=== PATIENT | female | born 1965 | race African-American/Black ===

== ENCOUNTER → 2017-12-31 | Outpatient (CLI) | payer MEDICAID ==
--- NOTE | 2018-01-02 09:22 | WOMENS IMAGING REPORT ---
EXAM DESCRIPTION: BILAT SCREENING MAMMO W/CAD COMPLETED DATE/TIME: 12/31/2017 9:53 am REASON FOR STUDY: ROUTINE SCREENING; Z12.31 Z12.31 ENCNTR SCREEN MAMMOGRAM FOR MALIGNANT NEOPLASM O F GEORGETTE COMPARISON: 08/21/2016 TECHNIQUE: Standard craniocaudal and mediolateral oblique views of each breast recorded using [employer] acquisition. LIMITATIONS: None. FINDINGS: Findings present which are benign by mammographic criteria. No suspicious masses, calcifi cations or architectural distortion. Pertinent benign findings: Benign right breast calcifications. Read with the assistance of CAD. .[facility] - R2 Cenova Version 1.3 .[facility] - R2 Cenova Version 1.3 .[facility] - R2 Cenova Version 2.4 .[facility] [place] - R2 Cenova Version 2.4 .[facility] - R2 [employer] Version 9.2 Benign mammographic findings may include one or more of the following: Smooth masses, popcorn/rim/co arse calcifications, asymmetries, post-procedure changes, and lesions with long-standing stability. IMPRESSION: BENIGN MAMMOGRAPHIC FINDINGS. BIRADS 2 BREAST DENSITY: b. There are scattered areas of fibroglandular density. BIRAD: 2 BENIGN FINDING(S) RECOMMENDATION: ROUTINE SCREENING Please continue yearly bilateral screening in December 2018. Please consider bilateral screening kelly osynthesis COMMENT: The patient has been notified of the results by letter per MQSA requirements. Additional no tification policies are in place for contacting patient with suspicious or incomplete findings. Quality ID #[id number]: The [employer] recommends an annual screening mammogram for women aged 40 years or over. This facility utilizes a reminder system to ensure that all patients receive reminder letters, and/or direct phone calls for appointments. This includes reminders for routine scr eening mammograms, diagnostic mammograms, or other Breast Imaging Interventions when appropriate. Th is patient will be placed in the appropriate reminder system. The [employer] [employer] (ACR) has developed recommendations for screening MRI of the breast s in certain patient populations, to be used in conjunction with mammography. Breast MRI surveillanc e may be appropriate for women with more than 20% lifetime risk of developing breast cancer as deter mined by genetic testing, significant family history of the disease, or history of mantle radiation f or Hodgkins Disease. ACR Practice Guidelines 2008. TECHNICAL DOCUMENTATION: FINDING NUMBER: (1) ASSESSMENT: (1) JOB ID: [id number] [employer]- All Rights Reserved
== END ==
LOC: WI 09:40
PROVIDERS: ATTEND Physician Assistant
DX: Z12.31 Encounter for screening mammogram for malignant neoplasm of breast (principal)
CPT/HCPCS: 77067

== ENCOUNTER 2018-07-21 08:13 | Day surgery (SDC) | payer MEDICAID ==
[~2018-07-21 08:13] MED LIST: PROPOFOL INJ 200 MG/20 ML VIAL IV ONE
[2018-07-21] MEDS ORDERED: SIMETHICONE 80 MG TAB.CHEW ONE (09:34)
[2018-07-21 09:51] VITALS: BP 129/81
[2018-07-21] MEDS ORDERED: PROPOFOL INJ 200 MG/20 ML VIAL IV ONE (10:41)
--- NOTE | 2018-07-21 13:38 | Operative Report ---
Operative Report DATE OF SURGERY: 07/21/18 Operative Report: The risks, benefits and alternatives of the procedure including the risks of bleeding, perforation requiring surgery are explained to the patient in detail and informed consent is obtained. Patient is taken back to the endoscopy suite and placed in the left, lateral decubital position. Timeout was called. Propofol medication is administered. A rectal examination is done which did not reveal any masses, tears or fissures. An Olympus videoscope was inserted into the patient's rectum. The scope was then carefully advanced all the way to the cecum. The cecum was identified by the usual anatomical landmarks valve as well as the appendiceal office. Photodocumentation is obtained. The scope was then sequentially pulled back via the various segments of the colon including the ascending colon, hepatic flexure, transverse colon, splenic flexure, descending colon and finally to the rectosigmoid portions of the colon. Retroflexion maneuvers performed. PREOPERATIVE DIAGNOSIS: Colorectal cancer screening POSTOPERATIVE DIAGNOSIS: Descending colon polyp was removed via snare polypectomy. Splenic flexure, larger polypoid lesion status post biopsy, status post Kathya ink injection for tattoo. Lesion is too large to be removed via snare polypectomy, will need surgical resection. Diverticulosis. Internal hemorrhoids OPERATION: Colonoscopy with submucosal injection. Colonoscopy with biopsy SURGEON: RANDY CASTRO ANESTHESIA: LMAC TISSUE REMOVED OR ALTERED: As noted above. COMPLICATIONS: None. ESTIMATED BLOOD LOSS: None. INTRAOPERATIVE FINDINGS: As noted above. PROCEDURE: Patient tolerated the procedure well. No immediate postprocedure applications are noted. Patient discharged in good condition. Discharge date 07/21/2018. Discharge diet: Regular. Discharge activity: Regular. 2-3 week follow-up to discuss findings. Patient will need surgical referral. Patient is instructed to call the office or proceed to the emergency room should there be any further problems or questions. Wait on the pathology.
== END 2018-07-21 10:00 | disposition home or self-care (01) ==
LOC: END 08:13
PROVIDERS: ATTEND Internal Medicine Gastroenterology
DX: Z12.11 Encounter for screening for malignant neoplasm of colon (principal); D12.3 Benign neoplasm of transverse colon; D12.6 Benign neoplasm of colon, unspecified; K57.30 Diverticulosis of large intestine without perforation or abscess without bleeding; J45.20 Mild intermittent asthma, uncomplicated; E11.65 Type 2 diabetes mellitus with hyperglycemia; F17.210 Nicotine dependence, cigarettes, uncomplicated; Z79.51 Long term (current) use of inhaled steroids; Z79.4 Long term (current) use of insulin; Z79.84 Long term (current) use of oral hypoglycemic drugs; Z79.899 Other long term (current) drug therapy; Z88.0 Allergy status to penicillin
CPT/HCPCS: 45380; 45381; 82962; 88305 ×2; J2704

== ENCOUNTER 2018-09-02 20:40 | Emergency (ER) | payer MEDICAID ==
[2018-09-02] MEDS ORDERED: NORMAL SALINE 1000 ML 1,000 ML IV ONE (20:48)
[2018-09-02 21:37] LABS: ABSOLUTE EOSINOPHILS # (AUTO) 0.4 10^3/uL (0.0-0.6); ABSOLUTE LYMPHOCYTES (AUTO) 2.6 10^3/uL (0.5-4.7); ABSOLUTE MONOCYTES (AUTO) 0.5 10^3/uL (0.1-1.4); ABSOLUTE NEUT (AUTO) 3.7 10^3/uL (1.7-8.2); BASOPHILS % (AUTO) 0.6 % (0-2); EOSINOPHILS % (AUTO) 5.6 % (0-6); HEMATOCRIT 38.3 % (36.0-47.0); HEMOGLOBIN 12.7 g/dL (12.0-15.5); LYMPHOCYTES % (AUTO) 36.2 % (13-45); MEAN CORPUSCULAR HEMOGLOBIN 25.2 pg (27.0-33.4); MEAN CORPUSCULAR HGB CONC 33.2 g/dL (32.0-36.0); MEAN CORPUSCULAR VOLUME 76 fl (80-97); PLATELET COUNT 282 10^3/uL (150-450); RED BLOOD COUNT 5.04 10^6/uL (3.72-5.28); RED CELL DISTRIBUTION WIDTH 13.7 % (11.5-14.0); SEGMENTED NEUTROPHILS % (AUTO) 50.6 % (42-78); TOTAL CELLS COUNTED % (AUTO) 100 %; WHITE BLOOD COUNT 7.3 10^3/uL (4.0-10.5)
[2018-09-02 21:38] LABS: VENOUS BLOOD BASE EXCESS 2.2 mmol/L; VENOUS BLOOD HCO3 27.9 mmol/L (20-32); VENOUS BLOOD PCO2 48.1 mmHg (35-63); VENOUS BLOOD PH 7.38 (7.30-7.42)
[2018-09-02 21:42] LABS: APPEARANCE,URINE CLEAR; BILIRUBIN,URINE NEGATIVE (NEGATIVE); COLOR,URINE STRAW; GLUCOSE, URINE >=500 mg/dL (NEGATIVE); KETONES,URINE NEGATIVE (NEGATIVE); LEUKOCYTE ESTERASE,URINE NEGATIVE (NEGATIVE); NITRITE,URINE NEGATIVE (NEGATIVE); PROTEIN,URINE NEGATIVE (NEGATIVE); URINE SPECIFIC GRAVITY 1.033
[2018-09-02 21:50] LABS: ALANINE AMINOTRANSFERASE 23 U/L (9-52); ALBUMIN 4.2 g/dL (3.5-5.0); ALKALINE PHOSPHATASE 60 U/L (38-126); ANION GAP 8 (5-19); ASPARTATE AMINO TRANSFERASE 22 U/L (14-36); BILIRUBIN,DIRECT 0.2 mg/dL (0.0-0.4); BILIRUBIN,TOTAL 0.5 mg/dL (0.2-1.3); BLOOD UREA NITROGEN 13 mg/dL (7-20); CALCIUM 9.3 mg/dL (8.4-10.2); CARBON DIOXIDE 31 mmol/L (22-30); CHLORIDE 96 mmol/L (98-107); POTASSIUM 4.1 mmol/L (3.6-5.0); SODIUM 135.2 mmol/L (137-145); TOTAL PROTEIN 7.3 g/dL (6.3-8.2)
[2018-09-02 21:59] LABS: GLUCOSE 442 mg/dL (75-110)
[2018-09-02] MEDS ORDERED: INSULIN REG, HUMAN 100 UNIT/ML 3 ML VIAL (PYX) SUBCUT ONE (22:17)
--- NOTE | 2018-09-02 22:55 | ER Document Report ---
ED General - General Chief Complaint: Headache Stated Complaint: SUGAR LEVELS Time Seen by Provider: 09/02/18 22:04 Notes: Patient is a pleasant 53-year-old female who is a diabetic. She says she is noncompliant with her medications. She says she has medications but just does not take them as she should. She supposed to take metformin thousand milligrams twice a day and also take Lantus. She said she knows that she started feeling dizzy unwell. She said she had a very slight headache. To the headache was not bad. She says she just did not feel well therefore checked her sugar and realized it was over 500. She therefore took her Lantus and came to the ER. No chest pain. No shortness of breath. No recent fevers or infections. TRAVEL OUTSIDE OF THE [place] IN LAST 30 DAYS: No - Related Data Allergies/Adverse Reactions: Penicillins Allergy (Severe, Verified 07/21/18 08:24) Hives Past Medical History - Social History Smoking Status: Former Smoker Chew tobacco use (# tins/day): No Frequency of alcohol use: Occasional Drug Abuse: None Family History: Reviewed & Not Pertinent Patient has suicidal ideation: No Patient has homicidal ideation: No - Past Medical History Cardiac Medical History: Denies: Hx Coronary Artery Disease, Hx Heart Attack, Hx Hypertension Pulmonary Medical History: Reports: Hx Asthma Denies: Hx Bronchitis, Hx COPD, Hx Pneumonia Neurological Medical History: Denies: Hx Cerebrovascular Accident, Hx Seizures Endocrine Medical History: Reports: Hx Diabetes Mellitus Type 2 Renal/ Medical History: Denies: Hx Peritoneal Dialysis Musculoskeletal Medical History: Denies Hx Arthritis Past Surgical History: Reports: Hx Orthopedic Surgery - R shoulder - Immunizations Immunizations up to date: Yes Hx Diphtheria, Pertussis, Tetanus Vaccination: Yes Review of Systems - Review of Systems Notes: My Normal Review Basic REVIEW OF SYSTEMS: CONSTITUTIONAL : Denies fever, chills, or sweats. Denies recent illness. EENT: Denies eye, ear, throat, or mouth pain or symptoms. Denies nasal or sinus congestion. CARDIOVASCULAR: Denies chest pain. RESPIRATORY: Denies cough, cold, or chest congestion. Denies shortness of breath, difficulty breathing, or wheezing. GASTROINTESTINAL: Denies abdominal pain. Denies nausea, vomiting, or diarrhea. GENITOURINARY: Denies difficulty urinating, painful urination, burning, frequency, or blood in urine. MUSCULOSKELETAL: Denies neck or back pain or joint pain or swelling. NEUROLOGICAL: Denies altered mental status or loss of consciousness. Mild headache which is since resolved. Denies weakness or paralysis or loss of use of either side. Denies problems with gait or speech. Denies sensory or motor loss. ALL OTHER SYSTEMS REVIEWED AND NEGATIVE. Physical Exam - Vital signs Vitals: Temp Pulse Resp BP Pulse Ox 98.0 F 89 16 152/81 H 98 09/02/18 20:46 09/02/18 20:46 09/02/18 20:46 09/02/18 20:46 09/02/18 20:46 - Notes Notes: General Appearance: Well nourished, alert, cooperative, no acute distress, no obvious discomfort. Well-appearing. Vitals: reviewed, See vital signs table. Head: no swelling or tenderness to the head Eyes: PERRL, EOMI, Conjuctiva clear Mouth: No decreasd moisture Neck: Supple, no neck tenderness Lungs: No wheezing, No rales, No rhonci, No accessory muscle use, good air exchange bilaterally. Heart: Normal rate, Regular rythm, No murmur, no rub Abdomen: Normal BS, soft, No rigidity, No abdominal tenderness, No guarding, no rebound, no abdominal masses, no organomegaly Extremities: good pulses in all extremities, no swelling or tenderness in the extremities, no edema. Skin: warm, dry, appropriate color, no rash Neuro: speech clear, oriented x 3, normal affect, responds appropriately to questions. Cranial nerves II through XII are intact. Distal sensation intact. Patient moves all extremities without difficulty. Good strength with plantar dorsiflexion against resistance. 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 No focal neurologic deficits on exam. Course - Re-evaluation Re-evalutation: 09/03/18 05:43 Patient symptoms have resolved with improvement of her blood sugar. I informed her that she must take her medications as prescribed. Encourage her to take her medications in the chest check her blood sugar and follow-up with her primary care doctor. If her blood sugar continues to run a bit high despite taking medications appropriately she may need some adjustment of her medications. Encourage patient return to ER immediately if she has recurrence of her symptoms, headache, fevers, vomiting, or feels unwell. Patient agrees with plan and will be discharged home. Dictation of this chart was performed using voice recognition software; therefore, there may be some unintended grammatical errors. - Vital Signs Vital signs: Temp Pulse Resp BP Pulse Ox 97.7 F 81 16 141/74 H 95 09/03/18 00:01 09/03/18 00:01 09/02/18 20:46 09/03/18 00:01 09/03/18 00:01 - Laboratory Result Diagrams: 09/02/18 21:20 09/02/18 21:20 Laboratory results interpreted by me: 09/02/18 09/02/18 09/02/18 21:20 21:20 21:20 MCV 76 L MCH 25.2 L Sodium 135.2 L Chloride 96 L Carbon Dioxide 31 H Glucose 442 H* POC Glucose Urine Glucose (UA) >=500 H Urine Urobilinogen 2.0 H 09/02/18 23:40 MCV MCH Sodium Chloride Carbon Dioxide Glucose POC Glucose 291 H Urine Glucose (UA) Urine Urobilinogen Discharge - Discharge Clinical Impression: Hyperglycemia Condition: Good Disposition: HOME, SELF-CARE Additional Instructions: Please take your medications as prescribed. Please keep a log of your blood sugars and follow up with your doctor on Saturday or Saturday to review your blood sugars to see if you need adjustment of your meds. Referrals: LOGAN RODRIGUEZ, ESTELAC [Primary Care Provider] - 09/05/18
[2018-09-03 00:04] VITALS: BP 141/74
== END 2018-09-03 00:04 | disposition home or self-care (01) ==
LOC: ER 20:40
DX: E11.65 Type 2 diabetes mellitus with hyperglycemia (principal); Z91.14 Patient's other noncompliance with medication regimen; R42 Dizziness and giddiness; R51 Headache; J45.909 Unspecified asthma, uncomplicated; Z88.0 Allergy status to penicillin; Z87.891 Personal history of nicotine dependence
CPT/HCPCS: 99284; 96360; 96361; 36415; 82962; 85025; 80053; 81001; 82803; J1815; J7030

== ENCOUNTER 2018-09-11 08:05 | Outpatient (CLI) | payer MEDICAID ==
--- NOTE | 2018-09-11 08:46 | RADIOLOGY REPORT (SQ) ---
EXAM DESCRIPTION: CHEST PA/LATERAL COMPLETED DATE/TIME: 09/11/2018 8:35 am REASON FOR STUDY: PRE-OP COMPARISON: 10/26/2016 EXAM PARAMETERS: NUMBER OF VIEWS: two views TECHNIQUE: Digital Frontal and Lateral radiographic views of the chest acquired. RADIATION DOSE: NA LIMITATIONS: none FINDINGS: LUNGS AND PLEURA: No opacities, masses or pneumothorax. No pleural effusion. MEDIASTINUM AND HILAR STRUCTURES: No masses or contour abnormalities. HEART AND VASCULAR STRUCTURES: Heart normal size. No evidence for failure. BONES: The osseous structures are stable in appearance. HARDWARE: None in the chest. OTHER: No other significant finding. IMPRESSION: 1. No significant interval changes since the prior examination dated 10/26/2016. No ac [place] findings. TECHNICAL DOCUMENTATION: JOB ID: [id number] [employer]- All Rights Reserved Reading location - IP/workstation name: [email or web address]
[2018-09-11 09:41] LABS: HEMOGLOBIN 12.5 g/dL (12.0-15.5); MEAN CORPUSCULAR HEMOGLOBIN 24.9 pg (27.0-33.4); MEAN CORPUSCULAR VOLUME 76 fl (80-97); PLATELET COUNT 272 10^3/uL (150-450); RED BLOOD COUNT 5.03 10^6/uL (3.72-5.28); RED CELL DISTRIBUTION WIDTH 13.9 % (11.5-14.0); WHITE BLOOD COUNT 6.1 10^3/uL (4.0-10.5)
[2018-09-11 10:00] LABS: ALANINE AMINOTRANSFERASE 29 U/L (9-52); ALBUMIN 4.3 g/dL (3.5-5.0); ALKALINE PHOSPHATASE 57 U/L (38-126); ANION GAP 16 (5-19); ASPARTATE AMINO TRANSFERASE 23 U/L (14-36); BILIRUBIN,DIRECT 0.1 mg/dL (0.0-0.4); BILIRUBIN,TOTAL 0.5 mg/dL (0.2-1.3); BLOOD UREA NITROGEN 10 mg/dL (7-20); CALCIUM 9.8 mg/dL (8.4-10.2); CARBON DIOXIDE 28 mmol/L (22-30); CHLORIDE 99 mmol/L (98-107); GLUCOSE 246 mg/dL (75-110); POTASSIUM 4.2 mmol/L (3.6-5.0); SODIUM 142.5 mmol/L (137-145); TOTAL PROTEIN 7.5 g/dL (6.3-8.2)
[2018-09-11 10:27] LABS: CARCINOEMBRYONIC ANTIGEN 1.5 ng/mL (<3.0)
--- NOTE | 2018-09-11 12:28 | EKG REPORT ---
SEVERITY:- ABNORMAL ECG - SINUS RHYTHM CONSIDER LEFT VENTRICULAR HYPERTROPHY : Confirmed by: Lorena Meeks MD 11-Sep-2018 12:27:50
[2018-09-19] MEDS ORDERED: METRONIDAZOLE 500 MG/NS RTU 500 MG/100 ML RTUPB IV PRN (05:00)
[2018-09-19] MEDS ORDERED: LIDOCAINE 0.5% INJ-PF (5 MG/ML) 50 ML SDV SUBCUT PRN (05:00)
[2018-09-19] MEDS ORDERED: CIPROFLOXACIN 400 MG/D5W RTU 400 MG/200 ML RTUPB IV PRN (05:00)
[2018-09-19] MEDS ORDERED: LACTATED RINGERS 1000 ML IV PRN (05:00)
[2018-09-19] MEDS ORDERED: CIPROFLOXACIN 400 MG/D5W RTU 400 MG/200 ML RTUPB IV ONE (05:22)
[2018-09-19] MEDS ORDERED: METRONIDAZOLE 500 MG/NS RTU 0 MG/0 ML RTUPB IV ONE (05:22)
[2018-09-19] MEDS ORDERED: ALBUTEROL SULFATE 0.083% NEB 2.5 MG/3 ML AMPUL NEB ONE (05:57)
[2018-09-19 06:00] VITALS: BP 149/88
[2018-09-19] MEDS ORDERED: MIDAZOLAM 2 MG/2 ML INJ ONE (06:13)
[2018-09-19] MEDS ORDERED: DEXAMETHASONE SOD PHOSPHATE INJ 4 MG/1 ML VIAL ONE (06:13)
[2018-09-19] MEDS ORDERED: LIDOCAINE 2% INJ-PF (20 MG/ML) 10 ML AMPUL ONE (06:13)
[2018-09-19] MEDS ORDERED: ONDANSETRON HCL INJ/PF 4 MG/2 ML SDV ONE (06:13)
[2018-09-19] MEDS ORDERED: FENTANYL CITRATE INJ/PF 250 MCG/5 ML AMPULE ONE (06:13)
[2018-09-19] MEDS ORDERED: ACETAMINOPHEN 0 MG/0 ML RTUPB IV ONE (06:14)
[2018-09-19] MEDS ORDERED: PROPOFOL INJ 200 MG/20 ML VIAL IV ONE (06:14)
[2018-09-19] MEDS ORDERED: SUGAMMADEX SODIUM 200 MG/2 ML SDV IV ONE (06:14)
[2018-09-19] MEDS ORDERED: BUPIVACAINE HCL 0.5 % INJ/PF 30 ML SDV ONE (06:52)
== END 2018-09-11 12:00 | disposition home or self-care (01) ==
LOC: OD 08:05 → UNDOADMIN 09-19 05:17 → INOR 09-19 05:17 → UNDODISIN 09-19 06:10 → EDSTATUS 09-19 07:30
PROVIDERS: ATTEND Surgery
DX: Z01.818 Encounter for other preprocedural examination (principal); K63.5 Polyp of colon; E11.9 Type 2 diabetes mellitus without complications; J45.909 Unspecified asthma, uncomplicated
CPT/HCPCS: 36415; 71046; 80053; 82378; 82962; 83036; 85027; 93005; 93010; 94640; J0131; J0744; J1100; J2250; J2405; J2704; J3010; J3490

== ENCOUNTER 2018-10-06 08:30 | Emergency (ER) | payer MEDICAID ==
[2018-10-06 08:36] VITALS: BP 140/76
[2018-10-06] MEDS ORDERED: FAMOTIDINE 20 MG TABLET PO ONE (09:34)
[2018-10-06] MEDS ORDERED: LORATADINE 10 MG TABLET PO ONE (09:34)
--- NOTE | 2018-10-06 09:40 | ER Document Report ---
ED Skin Rash/Insect Bite/Abscs - General Chief Complaint: Itching Stated Complaint: POSSIBLE SKIN ISSUE Time Seen by Provider: 10/06/18 09:04 Mode of Arrival: Ambulatory Information source: Patient Notes: 53-year-old female presents to ED for complaint of itching all over her body since Saturday. She states she has changed her laundry detergent but nothing else. She states she does not have any rash she does not have any shortness of breath difficulty breathing or difficulty swallowing. She does have itching all over her body. TRAVEL OUTSIDE OF THE [place] IN LAST 30 DAYS: No - HPI Patient complains to provider of: Other - Pain itching to her total body no rash noted Onset: Other - 3 days Onset/Duration: Persistent Quality of pain: No pain Severity: None Pain Level: Denies Skin Character: Other - No rash Quality of rash: Itchy Identify cause: No - States she changed her detergent but nothing else Exacerbated by: Other Relieved by: Denies - Showers Similar symptoms previously: No Recently seen / treated by doctor: No - Related Data Allergies/Adverse Reactions: Penicillins Allergy (Severe, Verified 10/06/18 08:32) Hives Past Medical History - General Information source: Patient - Social History Smoking Status: Current Every Day Smoker Cigarette use (# per day): Yes - 1-2 cigarettes a day Chew tobacco use (# tins/day): No Smoking Education Provided: Yes - 4 minutes Frequency of alcohol use: Occasional Drug Abuse: None Lives with: Family Family History: Reviewed & Not Pertinent Patient has suicidal ideation: No Patient has homicidal ideation: No - Past Medical History Cardiac Medical History: Denies: Hx Hypertension - DURING Pulmonary Medical History: Reports: Hx Asthma, Hx Pneumonia - YRS AGO EENT Medical History: Reports: None Neurological Medical History: Reports: None Endocrine Medical History: Reports: Hx Diabetes Mellitus Type 2 Renal/ Medical History: Reports: Hx Kidney Stones - H/O Malignancy Medical History: Reports: Hx Cervical Cancer GI Medical History: Reports: None Musculoskeletal Medical History: Reports None Skin Medical History: Reports None Psychiatric Medical History: Reports: Hx Depression Traumatic Medical History: Reports: None Infectious Medical History: Reports: None Past Surgical History: Reports: Hx Orthopedic Surgery - R shoulder - Immunizations Immunizations up to date: Yes Hx Diphtheria, Pertussis, Tetanus Vaccination: Yes Review of Systems - Review of Systems Notes: REVIEW OF SYSTEMS: CONSTITUTIONAL : Denies fever, chills, or sweats. Denies recent illness. EENT: Denies eye, ear, throat, or mouth pain or symptoms. Denies nasal or sinus congestion or discharge. Denies throat, tongue, or mouth swelling or difficulty swallowing. CARDIOVASCULAR: Denies chest pain. Denies palpitations or racing or irregular heart beat. Denies ankle edema. RESPIRATORY: Denies cough, cold, or chest congestion. Denies shortness of breath, difficulty breathing, or wheezing. GASTROINTESTINAL: Denies abdominal pain or distention. Denies nausea, vomiting , or diarrhea. Denies blood in vomitus, stools, or per rectum. Denies black, tarry stools. Denies constipation. GENITOURINARY: Denies difficulty urinating, painful urination, burning, frequency, blood in urine, or discharge. FEMALE GENITOURINARY: Denies vaginal bleeding, heavy or abnormal periods, irregular periods. Denies vaginal discharge or odor. MUSCULOSKELETAL: Denies back or neck pain or stiffness. Denies joint pain or swelling. SKIN: Patient denies any rashes but she states she has severe urticaria over her entire body to include her head. There are no hives just severe itching for the last several days since she changed her laundry soap. She states her knees came over to see her and set on her scalp and was scratching and then she has itched ever since then. HEMATOLOGIC : Denies easy bruising or bleeding. LYMPHATIC: Denies swollen, enlarged glands. NEUROLOGICAL: Denies confusion or altered mental status. Denies passing out or loss of consciousness. Denies dizziness or lightheadedness. Denies headache. Denies weakness or paralysis or loss of use of either side. Denies problems with gait or speech. Denies sensory loss, numbness, or tingling. Denies seizures. PHYSICAL EXAMINATION: GENERAL: Well-appearing, well-nourished and in no acute distress. HEAD: Atraumatic, normocephalic. EYES: Pupils equal round and reactive to light, extraocular movements intact, conjunctiva are normal. ENT: Nares patent, oropharynx clear without exudates. Moist mucous membranes. NECK: Normal range of motion, supple without lymphadenopathy LUNGS: Breath sounds clear to auscultation bilaterally and equal. No wheezes rales or rhonchi. HEART: Regular rate and rhythm without murmurs ABDOMEN: Soft, nontender, nondistended abdomen. No guarding, no rebound. No masses appreciated. Female : deferred Musculoskeletal: Normal range of motion, no pitting or edema. No cyanosis. NEUROLOGICAL: Cranial nerves grossly intact. Normal speech, normal gait. Normal sensory, motor exams PSYCH: Normal mood, normal affect. SKIN: Warm, Dry, normal turgor, no rashes or lesions noted. No rash just extreme itching PSYCHIATRIC: Denies anxiety or stress. Denies depression, suicidal ideation, or homicidal ideation. ALL OTHER SYSTEMS REVIEWED AND NEGATIVE. Dictation was performed using [employer] voice recognition software Physical Exam - Vital signs Vitals: Temp Pulse Resp BP Pulse Ox 98.0 F 100 20 140/76 H 96 10/06/18 08:35 10/06/18 08:35 10/06/18 08:35 10/06/18 08:35 10/06/18 08:35 Course - Vital Signs Vital signs: Temp Pulse Resp BP Pulse Ox 98.0 F 100 20 140/76 H 96 10/06/18 08:35 10/06/18 08:35 10/06/18 08:35 10/06/18 08:35 10/06/18 08:35 Discharge - Discharge Clinical Impression: Urticaria Condition: Stable Disposition: HOME, SELF-CARE Additional Instructions: You were seen today for itching all over your body since Saturday. You did not have any rash at this time. You state you have changed her laundry detergent recently please change it back as this can often cause skin irritation. Use Benadryl [id number], Benadryl cream, calamine lotion, or Caladryl lotion for the itching. Eucerin cream can also help with itching. Use cool or tepid bath hot water will actually make you itch more The more you scratch the more you will TH please try not to scratch ACID-SUPPRESSING MEDICATION: You have a prescription for medicine which reduces the stomach's secretion of acid. Examples include Zantac, Tagament, and Pepcid. These drugs are often used to allow healing of ulcers or esophagitis. They may be needed to prevent recurrence of ulcers in some patients, or to prevent damage from acid reflux in the esophagus. Take all medication as prescribed, even after the pain is gone. Regular antacids may be added as needed if you have symptoms while taking this medicine. These medications sometimes are prescribed for allergic reactions because they have anti-histaminic effects and relieve the rash and itching of the reaction. There are usually no side effects from this medication. But, in rare cases and particularly in the elderly, serious problems can occur. Contact your doctor if there is fever, rash, hallucinations, confusion, or unusual bruising. Contact your doctor at once if you develop lightheadedness, black or bloody stool, or bloody vomitus. ANTIHISTAMINES: An antihistamine has been given and/or prescribed to control your symptoms. Antihistamines are used for many reasons, including itching, watering eyes, runny nose, allergic swelling, hives, and insect stings. Antihistamines may cause drowsiness, especially with the first dose. Do not operate machinery or drive while under the effects of the medication. Other common side effects include dry mouth and eyes. In older persons, antihistamines can occasionally cause urinary retention, constipation, and trouble focusing the eyes. Do not combine the medication with alcohol, or with any other medication without talking to your doctor. USE OF DIPHENHYDRAMINE: The use of diphenhydramine (Benadryl) has been recommended to control allergic symptoms. The 25 mg strength is available over- the-counter, as well as the elixir. This antihistamine is used for many symptoms. It's useful for itching, watering eyes and nose, allergic swelling, hives, and insect stings. The medication can be repeated four times daily. Age Elixir (12.5 mg/tsp) 25 mg pill 2-3 yr 1/2 tsp 4-8 yr 1 tsp 9-14 yr 2 tsp one tab adult 1-2 tabs Antihistamines may cause drowsiness, especially with the first dose. Do not operate machinery or drive while under the effects of the medication. Do not combine the medication with alcohol, or with any other medication without talking to your doctor. FOLLOW-UP CARE: If you have been referred to a physician for follow-up care, call the physician s office for an appointment as you were instructed or within the next two days. If you experience worsening or a significant change in your symptoms, notify the physician immediately or return to the Emergency Department at any time for re-evaluation. Prescriptions: Diphenhydramine HCl [Benadryl 50 mg Capsule] 50 mg PO Q6 PRN #20 capsule PRN Reason: Itching Famotidine [Pepcid 20 mg Tablet] 20 mg PO BID #12 tablet Forms: Smoking Cessation Education Referrals: LOGAN RODRIGUEZ FNP-C [Primary Care Provider] - Follow up as needed
== END 2018-10-06 09:41 | disposition home or self-care (01) ==
LOC: ER 08:30
DX: L50.9 Urticaria, unspecified (principal); E11.9 Type 2 diabetes mellitus without complications; J45.909 Unspecified asthma, uncomplicated; F17.210 Nicotine dependence, cigarettes, uncomplicated; Z71.6 Tobacco abuse counseling; Z88.0 Allergy status to penicillin; Z85.41 Personal history of malignant neoplasm of cervix uteri
CPT/HCPCS: 99406; 99283; J3490 ×2

== ENCOUNTER 2018-11-14 10:31 | Emergency (ER) | payer MEDICAID ==
[2018-11-14] MEDS ORDERED: LIDOCAINE 5% (700 MG) TRANSDERMAL ADH..PATCH TP ONE (10:55)
[2018-11-14] MEDS ORDERED: ASPIRIN 81 MG TABLET, CHEWABLE PO ONE (10:55)
[2018-11-14] MEDS ORDERED: ACETAMINOPHEN 325 MG TABLET PO ONE (10:56)
--- NOTE | 2018-11-14 10:57 | ER Document Report ---
ED Medical Screen (RME) - General Chief Complaint: Chest Pain > 30 Stated Complaint: CHEST PINCHING Time Seen by Provider: 11/14/18 10:48 TRAVEL OUTSIDE OF THE [place] IN LAST 30 DAYS: No - Related Data Allergies/Adverse Reactions: Penicillins Allergy (Severe, Verified 11/14/18 10:32) Hives Past Medical History - Social History Chew tobacco use (# tins/day): No Frequency of alcohol use: None Drug Abuse: None - Past Medical History Cardiac Medical History: Denies: Hx Pulmonary Embolism Comment Only: Hx Hypertension - DURING Pulmonary Medical History: Reports: Hx Asthma, Hx Pneumonia - YRS AGO Denies: Hx Bronchitis, Hx COPD, Hx Respiratory Failure, Hx Sleep Apnea, Hx Tuberculosis Neurological Medical History: Denies: Hx Cerebrovascular Accident, Hx Seizures Endocrine Medical History: Reports: Hx Diabetes Mellitus Type 2. Denies: Hx Graves' Disease, Hx Hyperthyroidism, Hx Hypothyroidism Renal/ Medical History: Reports: Hx Kidney Stones - H/O. Denies: Hx End Stage Renal Disease, Hx Ovarian Cysts, Hx Peritoneal Dialysis, Hx Pelvic Inflammatory Disease Malignancy Medical History: Reports: Hx Cervical Cancer. Denies: Hx Breast Cancer, Hx Leukemia, Hx Lung Cancer, Hx Ovarian Cancer GI Medical History: Denies: Hx Crohn's Disease, Hx Gastroesophageal Reflux Disease, Hx Hiatal Hernia, Hx Irritable Bowel, Hx Liver Failure, Hx Pancreatitis, Hx Ulcer Musculoskeltal Medical History: Denies Hx Arthritis, Denies Hx Fibromyalgia, Denies Hx Multiple Sclerosis, Denies Hx Muscular Dystrophy Psychiatric Medical History: Reports: Hx Depression Denies: Hx Bipolar Disorder, Hx Dementia, Hx Post Traumatic Stress Disorder, Hx Schizophrenia Traumatic Medical History: Denies: Hx Fractures Infectious Medical History: Denies: Hx HIV Past Surgical History: Reports: Hx Orthopedic Surgery - R shoulder. Denies: Hx Appendectomy, Hx Bowel Surgery, Hx Section, Hx Cholecystectomy, Hx Colostomy, Hx Coronary Artery Bypass Graft, Hx Gastric Bypass Surgery, Hx Herniorrhaphy, Hx Hysterectomy, Hx Mastectomy, Hx Pacemaker, Hx Tonsillectomy, Hx Tubal Ligation - Immunizations Immunizations up to date: Yes Hx Diphtheria, Pertussis, Tetanus Vaccination: Yes History of Influenza Vaccine for 08/2017 - 01/2018 Season: No Physical Exam - Vital signs Vitals: Temp Pulse Resp BP Pulse Ox 97.5 F 85 15 157/82 H 97 11/14/18 10:43 11/14/18 10:43 11/14/18 10:43 11/14/18 10:43 11/14/18 10:43 Course - Re-evaluation Re-evalutation: 53-year-old female who is a cigarette smoker presents for evaluation of left- sided chest pain with associated gurgling. It is reproducible to palpation. Exacerbated by movement of her left arm. I have seen and evaluated this patient, they have undergone a rapid medical screening examination, they will require reevaluation further examination potential further diagnostics and disposition determination by secondary provider. - Vital Signs Vital signs: Temp Pulse Resp BP Pulse Ox 97.5 F 85 15 157/82 H 97 11/14/18 10:43 11/14/18 10:43 11/14/18 10:43 11/14/18 10:43 11/14/18 10:43 Doctor's Discharge - Discharge Referrals: LOGAN RODRIGUEZ, [employer] [Primary Care Provider] - Follow up as needed
[2018-11-14 11:27] LABS: ABSOLUTE EOSINOPHILS # (AUTO) 0.3 10^3/uL (0.0-0.6); ABSOLUTE LYMPHOCYTES (AUTO) 2.1 10^3/uL (0.5-4.7); ABSOLUTE MONOCYTES (AUTO) 0.6 10^3/uL (0.1-1.4); ABSOLUTE NEUT (AUTO) 4.5 10^3/uL (1.7-8.2); BASOPHILS % (AUTO) 0.5 % (0-2); EOSINOPHILS % (AUTO) 3.7 % (0-6); HEMATOCRIT 36.8 % (36.0-47.0); HEMOGLOBIN 12.1 g/dL (12.0-15.5); LYMPHOCYTES % (AUTO) 27.7 % (13-45); MEAN CORPUSCULAR HGB CONC 32.8 g/dL (32.0-36.0); MEAN CORPUSCULAR VOLUME 76 fl (80-97); MONOCYTES % (AUTO) 7.9 % (3-13); PLATELET COUNT 279 10^3/uL (150-450); RED BLOOD COUNT 4.84 10^6/uL (3.72-5.28); RED CELL DISTRIBUTION WIDTH 14.7 % (11.5-14.0); SEGMENTED NEUTROPHILS % (AUTO) 60.2 % (42-78); TOTAL CELLS COUNTED % (AUTO) 100 %; WHITE BLOOD COUNT 7.5 10^3/uL (4.0-10.5)
--- NOTE | 2018-11-14 11:29 | RADIOLOGY REPORT (SQ) ---
EXAM DESCRIPTION: CHEST SINGLE VIEW COMPLETED DATE/TIME: 11/14/2018 11:22 am REASON FOR STUDY: chest pain COMPARISON: 09/11/2018 EXAM PARAMETERS: NUMBER OF VIEWS: One view. TECHNIQUE: Single frontal radiographic view of the chest acquired. RADIATION DOSE: NA LIMITATIONS: None. FINDINGS: LUNGS AND PLEURA: No opacities, masses or pneumothorax. No pleural effusion. MEDIASTINUM AND HILAR STRUCTURES: No masses. Contour normal. HEART AND VASCULAR STRUCTURES: Heart normal in size. Normal vasculature. BONES: No acute findings. HARDWARE: None in the chest. OTHER: No other significant finding. IMPRESSION: NO ACUTE RADIOGRAPHIC FINDING IN THE CHEST. TECHNICAL DOCUMENTATION: JOB ID: [id number] [employer]- All Rights Reserved Reading location - IP/workstation name: [email or web address]
[2018-11-14 11:48] LABS: ALANINE AMINOTRANSFERASE 22 U/L (9-52); ALBUMIN 4.6 g/dL (3.5-5.0); ALKALINE PHOSPHATASE 54 U/L (38-126); ANION GAP 10 (5-19); ASPARTATE AMINO TRANSFERASE 20 U/L (14-36); BILIRUBIN,DIRECT 0.2 mg/dL (0.0-0.4); BILIRUBIN,TOTAL 0.6 mg/dL (0.2-1.3); BLOOD UREA NITROGEN 14 mg/dL (7-20); CALCIUM 9.9 mg/dL (8.4-10.2); CARBON DIOXIDE 28 mmol/L (22-30); CHLORIDE 103 mmol/L (98-107); CREATINE KINASE 167 U/L (30-135); GLUCOSE 157 mg/dL (75-110); POTASSIUM 4.3 mmol/L (3.6-5.0); SODIUM 140.5 mmol/L (137-145); TOTAL PROTEIN 7.9 g/dL (6.3-8.2)
[2018-11-14 11:59] LABS: CREATINE KINASE MB 1.11 ng/mL (<4.55)
[2018-11-14 12:06] LABS: TROPONIN I < 0.012 ng/mL
--- NOTE | 2018-11-14 14:42 | ER Document Report ---
ED General - General Chief Complaint: Chest Pain > 30 Stated Complaint: CHEST PINCHING Time Seen by Provider: 11/14/18 10:48 TRAVEL OUTSIDE OF THE [place] IN LAST 30 DAYS: No - HPI Notes: left sided chest pain since 8am this morning upon my evaluation status of the chest pain had resolvedWhich one there are no other was patient stating pain exacerbated with motion. Denies any recent travel denies any fever chills nausea vomiting diarrhea. - Related Data Allergies/Adverse Reactions: Penicillins Allergy (Severe, Verified 11/14/18 10:32) Hives Past Medical History - Social History Smoking Status: Current Every Day Smoker Chew tobacco use (# tins/day): No Frequency of alcohol use: None Drug Abuse: None Family History: Reviewed & Not Pertinent Patient has suicidal ideation: No Patient has homicidal ideation: No - Past Medical History Cardiac Medical History: Denies: Hx Pulmonary Embolism Comment Only: Hx Hypertension - DURING Pulmonary Medical History: Reports: Hx Asthma, Hx Pneumonia - YRS AGO Denies: Hx Bronchitis, Hx COPD, Hx Respiratory Failure, Hx Sleep Apnea, Hx Tuberculosis Neurological Medical History: Denies: Hx Cerebrovascular Accident, Hx Seizures Endocrine Medical History: Reports: Hx Diabetes Mellitus Type 2. Denies: Hx Graves' Disease, Hx Hyperthyroidism, Hx Hypothyroidism Renal/ Medical History: Reports: Hx Kidney Stones - H/O. Denies: Hx End Stage Renal Disease, Hx Ovarian Cysts, Hx Peritoneal Dialysis, Hx Pelvic Inflammatory Disease Malignancy Medical History: Reports: Hx Cervical Cancer. Denies: Hx Breast Cancer, Hx Leukemia, Hx Lung Cancer, Hx Ovarian Cancer GI Medical History: Denies: Hx Crohn's Disease, Hx Gastroesophageal Reflux Disease, Hx Hiatal Hernia, Hx Irritable Bowel, Hx Liver Failure, Hx Pancreatitis, Hx Ulcer Musculoskeletal Medical History: Denies Hx Arthritis, Denies Hx Fibromyalgia, Denies Hx Multiple Sclerosis, Denies Hx Muscular Dystrophy Psychiatric Medical History: Reports: Hx Depression Denies: Hx Bipolar Disorder, Hx Dementia, Hx Post Traumatic Stress Disorder, Hx Schizophrenia Traumatic Medical History: Denies: Hx Fractures Infectious Medical History: Denies: Hx HIV Past Surgical History: Reports: Hx Orthopedic Surgery - R shoulder. Denies: Hx Appendectomy, Hx Bowel Surgery, Hx Section, Hx Cholecystectomy, Hx Colostomy, Hx Coronary Artery Bypass Graft, Hx Gastric Bypass Surgery, Hx Herniorrhaphy, Hx Hysterectomy, Hx Mastectomy, Hx Pacemaker, Hx Tonsillectomy, Hx Tubal Ligation - Immunizations Immunizations up to date: Yes Hx Diphtheria, Pertussis, Tetanus Vaccination: Yes Review of Systems - Review of Systems Constitutional: No symptoms reported EENT: No symptoms reported Cardiovascular: Chest pain Respiratory: No symptoms reported Gastrointestinal: No symptoms reported Genitourinary: No symptoms reported Female Genitourinary: No symptoms reported Musculoskeletal: No symptoms reported Skin: No symptoms reported Hematologic/Lymphatic: No symptoms reported Neurological/Psychological: No symptoms reported Physical Exam - Vital signs Vitals: Temp Pulse Resp BP Pulse Ox 97.5 F 85 15 157/82 H 97 11/14/18 10:43 11/14/18 10:43 11/14/18 10:43 11/14/18 10:43 11/14/18 10:43 Interpretation: Normal - General General appearance: Appears well, Alert - HEENT Head: Normocephalic, Atraumatic Eyes: Normal Pupils: PERRL - Respiratory Respiratory status: No respiratory distress Chest status: Nontender Breath sounds: Normal Chest palpation: Normal - Cardiovascular Rhythm: Regular Heart sounds: Normal auscultation Murmur: No - Abdominal Inspection: Normal Distension: No distension Bowel sounds: Normal Tenderness: Nontender Organomegaly: No organomegaly - Back Back: Normal, Nontender - Extremities General upper extremity: Normal inspection, Nontender, Normal color, Normal ROM, Normal temperature General lower extremity: Normal inspection, Nontender, Normal color, Normal ROM, Normal temperature, Normal weight bearing. No: Reilly's sign - Neurological Neuro grossly intact: Yes Cognition: Normal Orientation: AAOx4 Rosales Coma Scale Eye Opening: Spontaneous Rosales Coma Scale Verbal: Oriented Rosales Coma Scale Motor: Obeys Commands [place] Coma Scale Total: 15 Speech: Normal Motor strength normal: LUE, RUE, LLE, RLE Sensory: Normal - Psychological Associated symptoms: Normal affect, Normal mood - Skin Skin Temperature: Warm Skin Moisture: Dry Skin Color: Normal Course - Re-evaluation Re-evalutation: 11/22/18 07:58 The patient has atypical chest pain as the patient's chest pain is not suggestive of pulmonary embolus, cardiac ischemia, aortic dissection, or other serious etiology. Given the extremely low risk of these diagnoses further testing and evaluation for these possibilities does not appear to be indicated at this time. The patient has been instructed to return if the symptoms worsen or change in any way. - Vital Signs Vital signs: Temp Pulse Resp BP Pulse Ox 97.5 F 71 18 142/89 H 98 11/14/18 10:43 11/14/18 14:49 11/14/18 14:49 11/14/18 14:49 11/14/18 14:49 - Laboratory Result Diagrams: 11/14/18 11:05 11/14/18 11:05 Laboratory results interpreted by me: 11/14/18 11/14/18 11:05 11:05 MCV 76 L MCH 25.0 L RDW 14.7 H Glucose 157 H Creatine Kinase 167 H Discharge - Discharge Clinical Impression: Chest pain Condition: Good Disposition: HOME, SELF-CARE Instructions: Chest Wall Pain ([facility]), Chest Pain of Unclear Cause ([facility]) Additional Instructions: Follow-up with your primary care physician your chest x-ray EKG laboratory s tudies today do not show any critical pathology. I would recommend taking Tylenol Motrin for your pain control return to ER if your symptoms change. Referrals: LOGAN RODRIGUEZ, [employer] [COMMUNITY BASED STAFF] - Follow up as needed
[2018-11-14 14:50] VITALS: BP 142/89
--- NOTE | 2018-11-14 23:01 | EKG REPORT ---
SEVERITY:- ABNORMAL ECG - SINUS RHYTHM CONSIDER LEFT VENTRICULAR HYPERTROPHY : Confirmed by: Lorena Meeks MD 14-Nov-2018 23:00:37
== END 2018-11-14 14:50 | disposition home or self-care (01) ==
LOC: ER 10:31
DX: R07.89 Other chest pain (principal); F17.200 Nicotine dependence, unspecified, uncomplicated; J45.909 Unspecified asthma, uncomplicated; E11.9 Type 2 diabetes mellitus without complications; Z85.41 Personal history of malignant neoplasm of cervix uteri; Z88.0 Allergy status to penicillin
CPT/HCPCS: 93005; 99284; 36415; 82553; 82550; 85025; 80053; 84484; 71045; 93010; J3490 ×2

== ENCOUNTER 2019-02-03 08:02 | Inpatient (IN) | payer MEDICAID ==
[2019-01-28 10:09] LABS: HEMATOCRIT 38.2 % (36.0-47.0); HEMOGLOBIN 12.7 g/dL (12.0-15.5); MEAN CORPUSCULAR HEMOGLOBIN 25.1 pg (27.0-33.4); MEAN CORPUSCULAR HGB CONC 33.1 g/dL (32.0-36.0); MEAN CORPUSCULAR VOLUME 76 fl (80-97); PLATELET COUNT 273 10^3/uL (150-450); RED BLOOD COUNT 5.03 10^6/uL (3.72-5.28); RED CELL DISTRIBUTION WIDTH 14.6 % (11.5-14.0); WHITE BLOOD COUNT 5.9 10^3/uL (4.0-10.5)
[2019-01-28 10:24] LABS: ANION GAP 10 (5-19); BLOOD UREA NITROGEN 10 mg/dL (7-20); CALCIUM 10.2 mg/dL (8.4-10.2); CARBON DIOXIDE 30 mmol/L (22-30); CHLORIDE 101 mmol/L (98-107); GLUCOSE 208 mg/dL (75-110); POTASSIUM 4.1 mmol/L (3.6-5.0); SODIUM 140.8 mmol/L (137-145)
--- NOTE | 2019-01-28 11:05 | RADIOLOGY REPORT (SQ) ---
EXAM DESCRIPTION: CHEST PA/LATERAL COMPLETED DATE/TIME: 01/28/2019 10:36 am REASON FOR STUDY: COUGH,PRE-OP COMPARISON: 11/14/2018 EXAM PARAMETERS: NUMBER OF VIEWS: two views TECHNIQUE: Digital Frontal and Lateral radiographic views of the chest acquired. RADIATION DOSE: NA LIMITATIONS: none FINDINGS: LUNGS AND PLEURA: No opacities, masses or pneumothorax. No pleural effusion. Unchanged hy perinflation at the left lung apex. MEDIASTINUM AND HILAR STRUCTURES: No masses or contour abnormalities. HEART AND VASCULAR STRUCTURES: Heart normal size. No evidence for failure. BONES: Unchanged dysmorphic right apical hemithorax with evidence of fused upper ribs an elevated rig ht scapula. Upper thoracic vertebral body anomalies, stable. HARDWARE: None in the chest. OTHER: No other significant finding. IMPRESSION: No evidence of acute cardiopulmonary process. 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 TECHNICAL DOCUMENTATION: JOB ID: [id number] [employer]- All Rights Reserved Reading location - IP/workstation name: [email or web address]
--- NOTE | 2019-01-28 23:30 | EKG REPORT ---
SEVERITY:- NORMAL ECG - SINUS RHYTHM : Confirmed by: Miguel A Donis 28-Jan-2019 23:30:22
[~2019-02-03 08:02] MED LIST changes: +IBUPROFEN 800 MG in NORMAL SALINE 250 ML IV PRN; +LACTATED RINGERS 1000 ML IV PRN; +LEVOFLOXACIN 500 MG/D5W RTU 500 MG/100 ML RTUPB IV PRN; +LIDOCAINE 0.5% INJ-PF (5 MG/ML) 50 ML SDV SUBCUT PRN; +METRONIDAZOLE 500 MG/NS RTU 500 MG/100 ML RTUPB IV PRN; -PROPOFOL INJ 200 MG/20 ML VIAL IV ONE
[2019-02-03] MEDS ORDERED: ALBUTEROL SULFATE 0.083% NEB 2.5 MG/3 ML AMPUL NEB ONE (09:31)
[2019-02-03] MEDS ORDERED: FAMOTIDINE INJ/PF 20 MG/2 ML SDV IV ONE (09:32)
[2019-02-03] MEDS ORDERED: METRONIDAZOLE 500 MG/NS RTU 500 MG/100 ML RTUPB IV ONE (09:33)
[2019-02-03] MEDS ORDERED: LEVOFLOXACIN 500 MG/D5W RTU 500 MG/100 ML RTUPB IV ONE (09:34)
[2019-02-03] MEDS ORDERED: BUPIVACAINE HCL 0.25 % INJ/PF (2.5 MG/1 ML) 30 ML VIAL ONE (09:40)
[2019-02-03] MEDS ORDERED: METOCLOPRAMIDE HCL INJ/PF 10 MG/2 ML SDV ONE (09:54)
[2019-02-03] MEDS ORDERED: RINGERS SOLUTION,LACTATED 1,000 ML IV ONE (10:30)
[2019-02-03] MEDS ORDERED: MIDAZOLAM 2 MG/2 ML INJ ONE (10:32)
[2019-02-03] MEDS ORDERED: HYDROMORPHONE HCL INJ/PF 2 MG/ML AMPULE ONE ×2 (10:32→16:06)
[2019-02-03] MEDS ORDERED: FENTANYL CITRATE INJ/PF 100 MCG/2 ML AMPUL ONE ×2 (10:32→15:30)
[2019-02-03] MEDS ORDERED: DEXAMETHASONE SOD PHOSPHATE INJ 4 MG/1 ML VIAL ONE (10:32)
[2019-02-03] MEDS ORDERED: ONDANSETRON HCL INJ/PF 4 MG/2 ML SDV ONE (10:32)
[2019-02-03] MEDS ORDERED: PROPOFOL INJ 200 MG/20 ML VIAL IV ONE (10:33)
[2019-02-03] MEDS ORDERED: ACETAMINOPHEN 1,000 MG/100 ML RTUPB IV ONE (10:33)
[2019-02-03] MEDS ORDERED: NEOSTIGMINE METHYLSULFATE 10 MG/10 ML VIAL ONE (12:00)
[2019-02-03] MEDS ORDERED: SUCCINYLCHOLINE CHLORIDE INJ 200 MG/10 ML VIAL ONE (12:00)
[2019-02-03] MEDS ORDERED: GLYCOPYRROLATE 1 MG/5 ML SYRINGE ONE (12:00)
[2019-02-03] MEDS ORDERED: ROCURONIUM BROMIDE INJ 50 MG/5 ML VIAL IV ONE (12:00)
[2019-02-03] MEDS ORDERED: DIPHENHYDRAMINE HCL 50 MG/ML VIAL IV PRN (12:03)
[2019-02-03] MEDS ORDERED: PROMETHAZINE HCL INJ 25 MG/1 ML VIAL IV PRN ×2 (12:03)
[2019-02-03] MEDS ORDERED: FENTANYL CITRATE INJ/PF 100 MCG/2 ML AMPUL IV PRN ×3 (12:03)
[2019-02-03] MEDS ORDERED: MEPERIDINE HCL/PF INJ 25 MG/1 ML DISP.SYRIN IV PRN (12:03)
[2019-02-03] MEDS ORDERED: MORPHINE SULFATE 10 MG/ML INJ IV PRN (12:03)
[2019-02-03] MEDS ORDERED: ONDANSETRON HCL INJ/PF 4 MG/2 ML SDV IV PRN (15:00)
[2019-02-03] MEDS ORDERED: DEXTROSE 50%-WATER 25 GM/50 ML DISP.SYRIN IV PRN ×2 (15:06)
[2019-02-03] MEDS ORDERED: DEXTROSE 40% GEL 15 GM TUBE PO PRN ×2 (15:06)
[2019-02-03] MEDS ORDERED: GLUCAGON,HUMAN RECOMB 1 MG INJ IM PRN (15:06)
--- NOTE | 2019-02-03 15:34 | Operative Report ---
Nonrecallable Operative Report DATE OF SURGERY: 02/03/19 PREOPERATIVE DIAGNOSIS: large colon polyp, not amenable to endoscopic resection POSTOPERATIVE DIAGNOSIS: Large transverse colon polyp, not amenable to endoscopic resection OPERATION: Laparoscopic right hemicolectomy SURGEON: NATHAN ARELLANO ANESTHESIA: GA TISSUE REMOVED OR ALTERED: right hemicolectomy, resection margin just past the mid transverse colon COMPLICATIONS: none apparent ESTIMATED BLOOD LOSS: minimal PROCEDURE: Drains/implants: None. After informed consent was obtained, the patient was brought to the operating room and laid in the low lithotomy position. The area of the abdomen was prepped and draped in a normal sterile fashion. A supraumbilical incision was created using a 15 blade scalpel. Dissection was carried through the subcutaneous tissue using sharp and blunt dissection. The linea alba fascia was incised sharply, the abdomen was entered sharply. The balloon trocar was inserted, and pneumoperitoneum was achieved. There were some adhesions found in the abdomen, around the umbilicus. This was an area of previous surgery. A right upper quadrant 5 mm trocar was then placed under direct laparoscopic visualization. The omentum was freed from the anterior abdominal wall using a mixture of blunt dissection and harmonic sc alpel. Once the abdomen was free from adhesions, attention was turned to identify the tattooed portion of the transverse colon. The tattoo and colon mass were found to lie in approximately the mid transverse colon. When this was confirmed, it was felt that a right hemicolectomy would be adequate to remove the tumor. A suprapubic 5 mm trocar was placed under direct laparoscopic visualization, as well as a 12 mm left lower quadrant trocar. The cecum was elevated anteriorly. The ileocolic artery was easily identified. It was dissected free and was stapled using the 60 mm Zearing stapler with white loads. Next, the dissection was taken towards the ileocecal valve. The small bowel was divided using the Zearing stapler. The cecum was then reflected anteriorly and superiorly. Blunt dissection was then used to raise the mesentery off of the retroperitoneum in a medial to lateral fashion. Once this was completed up to the hepatic flexure, the right colon was rotated medially. The white line of Toldt on the right was taken down using the harmonic scalpel. The omentum was freed from the transverse colon, again using harmonic scalpel. After the right and transverse colon were adequately freed, the balloon trocar was removed and an incision was created in the supraumbilical position. The Franklyn wound retractor was placed into the incision and tightened. The right colon was then delivered through the incision. The tattooed area and colon mass were easily identified. 5 cm distal to the tattooed area was chosen for resection. The Zearing 60 stapler with a blue load was used to divide the mid transverse colon. The right hemicolectomy specimen was then passed off the field and sent to pathology. Attention was then turned to creation of the anastomosis. The small bowel was brought into apposition with the transverse colon. Both edges of the bowel appeared to be healthy. The antimesenteric portions of the bowel were brought together and stapled in a [id number] fashion using the Zearing 60 stapling device with a blue load. 2 crotch stitches of 3-0 Vicryl were placed. After this was completed, the resulting defect was closed using the Zearing stapler with blue loads. Next, the anastomosis was inspected. It was found to be free of any leakage of air or stool. The anastomosis was then returned to the abdomen. Pneumoperitoneum was again achieved, and inspection of the intra-abdominal anastomosis was undertaken. There was no kinking or twisting of the small bowel. Once this was confirmed, attention was turned to closure. The left lower quadrant 12 mm trocar was removed. The defect was closed using 0 Vicryl suture in [id number] fashion using the Endo Close device. Once this was completed the 5 mm trochars were removed, as was the Franklyn wound retractor. The midline incision was closed with #1 single strand PDS suture in simple running fashion. The overlying skin was closed using skin carlos. Dressings were placed, and the procedure was concluded. All sponge, instrument, and needle counts were correct x2. Condition: Stable.
[2019-02-03] MEDS: INSULIN LISPRO 100 UNIT/ML 3 ML VIAL SUBCUT SCH ×2 (17:46→22:17)
[2019-02-03] MEDS: NORMAL SALINE 1000 ML 1,000 ML IV PRN (18:07)
[2019-02-03] MEDS: FAMOTIDINE 20 MG TABLET PO SCH (18:38)
[2019-02-03] MEDS: MORPHINE SULFATE 10 MG/ML INJ IV PRN ×2 (18:38→22:50)
[2019-02-03] MEDS: METRONIDAZOLE 500 MG/NS RTU 500 MG/100 ML RTUPB IV SCH (22:17)
[2019-02-03] MEDS: KETOROLAC TROMETHAMINE INJ/PF 30 MG/1 ML SDV IV SCH (22:17)
[2019-02-04] MEDS: MORPHINE SULFATE 10 MG/ML INJ IV PRN ×5 (03:17→20:52)
[2019-02-04] MEDS: METRONIDAZOLE 500 MG/NS RTU 500 MG/100 ML RTUPB IV SCH (03:18)
[2019-02-04 05:32] LABS: ABSOLUTE LYMPHOCYTES (AUTO) 1.1 10^3/uL (0.5-4.7); ABSOLUTE MONOCYTES (AUTO) 0.9 10^3/uL (0.1-1.4); ABSOLUTE NEUT (AUTO) 10.5 10^3/uL (1.7-8.2); BASOPHILS % (AUTO) 0.1 % (0-2); HEMATOCRIT 32.3 % (36.0-47.0); HEMOGLOBIN 10.7 g/dL (12.0-15.5); LYMPHOCYTES % (AUTO) 8.7 % (13-45); MEAN CORPUSCULAR HGB CONC 33.2 g/dL (32.0-36.0); MEAN CORPUSCULAR VOLUME 75 fl (80-97); MONOCYTES % (AUTO) 7.2 % (3-13); PLATELET COUNT 229 10^3/uL (150-450); RED BLOOD COUNT 4.29 10^6/uL (3.72-5.28); RED CELL DISTRIBUTION WIDTH 14.5 % (11.5-14.0); TOTAL CELLS COUNTED % (AUTO) 100 %; WHITE BLOOD COUNT 12.5 10^3/uL (4.0-10.5)
[2019-02-04] MEDS: KETOROLAC TROMETHAMINE INJ/PF 30 MG/1 ML SDV IV SCH ×3 (05:56→22:13)
[2019-02-04] MEDS: NORMAL SALINE 1000 ML 1,000 ML IV PRN (05:57)
[2019-02-04 06:03] LABS: ANION GAP 12 (5-19); BLOOD UREA NITROGEN 10 mg/dL (7-20); CALCIUM 9.1 mg/dL (8.4-10.2); CARBON DIOXIDE 24 mmol/L (22-30); CHLORIDE 101 mmol/L (98-107); GLUCOSE 174 mg/dL (75-110); POTASSIUM 4.1 mmol/L (3.6-5.0); SODIUM 136.6 mmol/L (137-145)
[2019-02-04] MEDS: INSULIN LISPRO 100 UNIT/ML 3 ML VIAL SUBCUT SCH ×4 (07:55→22:14)
[2019-02-04] MEDS: FAMOTIDINE 20 MG TABLET PO SCH ×2 (10:37→18:44)
[2019-02-04] MEDS: ENOXAPARIN SODIUM INJ 40 MG/0.4 ML DISP.SYRIN SUBCUT SCH (10:38)
--- NOTE | 2019-02-04 17:54 | PDOC PROGRESS REPORT ---
Subjective Progress Note for:: 02/04/19 Reason For Visit: S/P LAP RIGHT HEMICOLECTOMY Physical Exam Vital Signs: Temp Pulse Resp BP Pulse Ox 99.3 F 93 16 124/52 L 96 02/04/19 16:00 02/04/19 16:00 02/04/19 16:00 02/04/19 16:00 02/04/19 16:00 Intake & Output 02/03/19 02/04/19 02/05/19 06:59 06:59 06:59 Intake Total 4410 498 Output Total 1775 1400 Balance 2635 -902 Weight 83.5 kg Results Laboratory Results: 02/04/19 04:57 02/04/19 04:57 02/04/19 02/04/19 04:57 04:57 WBC 12.5 H RBC 4.29 Hgb 10.7 L Hct 32.3 L MCV 75 L MCH 25.0 L MCHC 33.2 RDW 14.5 H Plt Count 229 Seg Neutrophils % 84.0 H Lymphocytes % 8.7 L Monocytes % 7.2 Eosinophils % 0.0 Basophils % 0.1 Absolute Neutrophils 10.5 H Absolute Lymphocytes 1.1 Absolute Monocytes 0.9 Absolute Eosinophils 0.0 Absolute Basophils 0.0 Sodium 136.6 L Potassium 4.1 Chloride 101 Carbon Dioxide 24 Anion Gap 12 BUN 10 Creatinine 0.65 Est GFR ( Amer) > 60 Est GFR (Non-Af Amer) > 60 Glucose 174 H Calcium 9.1 Impressions: Chest X-Ray 01/28/19 00:00 IMPRESSION: No evidence of acute cardiopulmonary process. 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 Assessment & Plan - Diagnosis (1) Adenoma of transverse colon Is this a current diagnosis for this admission?: Yes - Plan Summary Plan Summary: There is a 53-year-old female status post laparoscopic right hemicolectomy. The patient is doing well today. She denies nausea, vomiting, fevers, or chills. Her abdominal pain is controlled with medications. She is out of bed today and using her incentive spirometer. She denies flatus. Discontinue Jang. Ambulate. Aggressive pulmonary toilet. Awaiting bowel function.
[2019-02-04] MEDS: RINGERS SOLUTION,LACTATED 1,000 ML IV PRN (18:10)
[2019-02-04] MEDS: HYDROCODONE/ACETAMINOPHEN 10-325 MG TABLET PO PRN (18:50)
[2019-02-04] MEDS ORDERED: KETOROLAC TROMETHAMINE INJ/PF 30 MG/1 ML SDV IV ONE (22:45)
[2019-02-05] MEDS: ALBUTEROL SULFATE 0.083% NEB 2.5 MG/3 ML AMPUL NEB PRN (00:20)
--- NOTE | 2019-02-05 01:10 | RADIOLOGY REPORT (SQ) ---
EXAM DESCRIPTION: XR CHEST 1 VIEW COMPLETED DATE/TME: 02/04/2019 23:59 CLINICAL HISTORY: 53 years, Female, Tachypnea, Tachycardia COMPARISON: 02/03/2019 NUMBER OF VIEWS: One TECHNIQUE: AP view of the chest LIMITATIONS: None. FINDINGS: The lungs are clear. The heart is normal in size. There is no pneumothorax or pleural effusion. There is stable elevation of the right scapula with deformity of the right upper hemithorax with fused right ribs. IMPRESSION: No acute cardiopulmonary abnormality. No significant change compared to the prior exam. copyright 2010 [employer]- All Rights Reserved
[2019-02-05] MEDS: MORPHINE SULFATE 10 MG/ML INJ IV PRN ×4 (01:34→21:08)
[2019-02-05] MEDS: RINGERS SOLUTION,LACTATED 1,000 ML IV PRN ×3 (01:34→20:16)
[2019-02-05 05:50] LABS: ABSOLUTE LYMPHOCYTES (AUTO) 1.4 10^3/uL (0.5-4.7); ABSOLUTE MONOCYTES (AUTO) 0.7 10^3/uL (0.1-1.4); ABSOLUTE NEUT (AUTO) 8.8 10^3/uL (1.7-8.2); BASOPHILS % (AUTO) 0.1 % (0-2); EOSINOPHILS % (AUTO) 0.3 % (0-6); HEMATOCRIT 28.6 % (36.0-47.0); HEMOGLOBIN 9.5 g/dL (12.0-15.5); LYMPHOCYTES % (AUTO) 12.5 % (13-45); MEAN CORPUSCULAR HEMOGLOBIN 25.1 pg (27.0-33.4); MEAN CORPUSCULAR HGB CONC 33.2 g/dL (32.0-36.0); MEAN CORPUSCULAR VOLUME 76 fl (80-97); PLATELET COUNT 179 10^3/uL (150-450); RED BLOOD COUNT 3.78 10^6/uL (3.72-5.28); RED CELL DISTRIBUTION WIDTH 14.4 % (11.5-14.0); SEGMENTED NEUTROPHILS % (AUTO) 81.1 % (42-78); TOTAL CELLS COUNTED % (AUTO) 100 %; WHITE BLOOD COUNT 10.9 10^3/uL (4.0-10.5)
[2019-02-05 06:13] LABS: ANION GAP 6 (5-19); BLOOD UREA NITROGEN 11 mg/dL (7-20); CALCIUM 8.9 mg/dL (8.4-10.2); CARBON DIOXIDE 28 mmol/L (22-30); CHLORIDE 101 mmol/L (98-107); GLUCOSE 153 mg/dL (75-110); POTASSIUM 3.7 mmol/L (3.6-5.0); SODIUM 135.1 mmol/L (137-145)
[2019-02-05] MEDS: HYDROCODONE/ACETAMINOPHEN 10-325 MG TABLET PO PRN ×3 (06:34→21:08)
[2019-02-05] MEDS: KETOROLAC TROMETHAMINE INJ/PF 30 MG/1 ML SDV IV SCH ×3 (06:34→21:07)
--- NOTE | 2019-02-05 07:13 | PDOC PROGRESS REPORT ---
Subjective Progress Note for:: 02/05/19 Reason For Visit: S/P LAP RIGHT HEMICOLECTOMY Physical Exam Vital Signs: Temp Pulse Resp BP Pulse Ox 99.5 F 104 H 16 125/59 L 99 02/05/19 04:00 02/05/19 04:00 02/05/19 04:00 02/05/19 04:00 02/05/19 04:00 Intake & Output 02/04/19 02/05/19 02/06/19 06:59 06:59 06:59 Intake Total 4410 2918 Output Total 1775 1400 Balance 2635 1518 Weight 83.5 kg 84.2 kg Results Laboratory Results: 02/05/19 05:26 02/05/19 05:26 02/05/19 02/05/19 05:26 05:26 WBC 10.9 H RBC 3.78 Hgb 9.5 L Hct 28.6 L MCV 76 L MCH 25.1 L MCHC 33.2 RDW 14.4 H Plt Count 179 Seg Neutrophils % 81.1 H Lymphocytes % 12.5 L Monocytes % 6.0 Eosinophils % 0.3 Basophils % 0.1 Absolute Neutrophils 8.8 H Absolute Lymphocytes 1.4 Absolute Monocytes 0.7 Absolute Eosinophils 0.0 Absolute Basophils 0.0 Sodium 135.1 L Potassium 3.7 Chloride 101 Carbon Dioxide 28 Anion Gap 6 BUN 11 Creatinine 0.73 Est GFR ( Amer) > 60 Est GFR (Non-Af Amer) > 60 Glucose 153 H Calcium 8.9 Impressions: Chest X-Ray 02/04/19 23:59 IMPRESSION: No acute cardiopulmonary abnormality. No significant change compared to the prior exam. copyright 2011 [employer]- All Rights Reserved Assessment & Plan - Diagnosis (1) Adenoma of transverse colon Is this a current diagnosis for this admission?: Yes - Plan Summary Plan Summary: This a 53-year-old female status post laparoscopic right hemicolectomy for a large transverse colon polyp, not amenable to endoscopic resection. The patient is doing well today. She had some difficulty breathing last night. This was cured with incentive spirometry, supplemental oxygen, and a breathing treatment. Her x-ray shows no infiltrates. Her saturations are 98% at present. Her respiratory rate is 15. She denies flatus at present. She denies nausea or vomiting. Continue with aggressive pulmonary toilet and nebulizer treatments. Continue full liquid diet. Continue current pain medication regimen. Awaiting bowel function.
[2019-02-05] MEDS: INSULIN LISPRO 100 UNIT/ML 3 ML VIAL SUBCUT SCH ×4 (08:22→21:07)
[2019-02-05] MEDS: FAMOTIDINE 20 MG TABLET PO SCH ×2 (09:47→17:00)
[2019-02-05] MEDS: ENOXAPARIN SODIUM INJ 40 MG/0.4 ML DISP.SYRIN SUBCUT SCH (09:47)
[2019-02-06] MEDS: KETOROLAC TROMETHAMINE INJ/PF 30 MG/1 ML SDV IV SCH ×3 (05:06→21:38)
[2019-02-06] MEDS: HYDROCODONE/ACETAMINOPHEN 10-325 MG TABLET PO PRN (05:07)
[2019-02-06] MEDS: RINGERS SOLUTION,LACTATED 1,000 ML IV PRN ×3 (05:07→21:41)
--- NOTE | 2019-02-06 07:56 | PDOC PROGRESS REPORT ---
Subjective Progress Note for:: 02/06/19 Reason For Visit: S/P LAP RIGHT HEMICOLECTOMY Physical Exam Vital Signs: Temp Pulse Resp BP Pulse Ox 99.3 F 107 H 16 140/68 H 93 02/05/19 23:28 02/05/19 23:28 02/05/19 23:28 02/05/19 23:28 02/05/19 23:28 Intake & Output 02/05/19 02/06/19 02/07/19 06:59 06:59 06:59 Intake Total 2918 3863 Output Total 1400 Balance 1518 3863 Weight 84.2 kg 85.3 kg Results Laboratory Results: 02/05/19 05:26 02/05/19 05:26 Impressions: Chest X-Ray 02/04/19 23:59 IMPRESSION: No acute cardiopulmonary abnormality. No significant change compared to the prior exam. copyright 2010 [employer]- All Rights Reserved Assessment & Plan - Diagnosis (1) Colon cancer Qualifiers: Colon location: transverse Qualified Code(s): C18.4 - Malignant neoplasm of transverse colon Is this a current diagnosis for this admission?: Yes - Plan Summary Plan Summary: This is a 53-year-old female status post right hemicolectomy for colon cancer. The patient had low-grade fevers overnight. Her pulmonary toilet is poor today. She can only reach 750 on her incentive spirometer. She reports mild nausea this morning, but no vomiting. Her incisions are clean, dry, and intact. Her pathology has returned. There was a focus of invasive moderately differentiated adenocarcinoma within a large polyp. Her lymph nodes were negative for metastatic disease. Aggressive pulmonary toilet. Out of bed all day, in chair and walking in the hallways. Labs are pending. Awaiting bowel function.
[2019-02-06 08:35] LABS: ABSOLUTE EOSINOPHILS # (AUTO) 0.3 10^3/uL (0.0-0.6); ABSOLUTE LYMPHOCYTES (AUTO) 1.4 10^3/uL (0.5-4.7); ABSOLUTE MONOCYTES (AUTO) 0.7 10^3/uL (0.1-1.4); ABSOLUTE NEUT (AUTO) 6.7 10^3/uL (1.7-8.2); BASOPHILS % (AUTO) 0.3 % (0-2); EOSINOPHILS % (AUTO) 3.4 % (0-6); HEMOGLOBIN 9.9 g/dL (12.0-15.5); LYMPHOCYTES % (AUTO) 15.4 % (13-45); MEAN CORPUSCULAR HEMOGLOBIN 24.9 pg (27.0-33.4); MEAN CORPUSCULAR VOLUME 76 fl (80-97); MONOCYTES % (AUTO) 7.8 % (3-13); PLATELET COUNT 209 10^3/uL (150-450); RED BLOOD COUNT 3.98 10^6/uL (3.72-5.28); RED CELL DISTRIBUTION WIDTH 14.8 % (11.5-14.0); SEGMENTED NEUTROPHILS % (AUTO) 73.1 % (42-78); TOTAL CELLS COUNTED % (AUTO) 100 %; WHITE BLOOD COUNT 9.2 10^3/uL (4.0-10.5)
[2019-02-06] MEDS: ALBUTEROL SULFATE 0.083% NEB 2.5 MG/3 ML AMPUL NEB PRN ×2 (08:39→14:18)
[2019-02-06 09:03] LABS: ANION GAP 7 (5-19); BLOOD UREA NITROGEN 5 mg/dL (7-20); CARBON DIOXIDE 29 mmol/L (22-30); CHLORIDE 101 mmol/L (98-107); GLUCOSE 123 mg/dL (75-110); POTASSIUM 3.5 mmol/L (3.6-5.0); SODIUM 137.3 mmol/L (137-145)
[2019-02-06] MEDS: INSULIN LISPRO 100 UNIT/ML 3 ML VIAL SUBCUT SCH ×4 (09:03→21:39)
[2019-02-06] MEDS: FAMOTIDINE 20 MG TABLET PO SCH ×2 (10:18→18:11)
[2019-02-06] MEDS: ENOXAPARIN SODIUM INJ 40 MG/0.4 ML DISP.SYRIN SUBCUT SCH (10:18)
[2019-02-06] MEDS: MORPHINE SULFATE 10 MG/ML INJ IV PRN (18:11)
[2019-02-06] MEDS ORDERED: POTASSI CL 20 MEQ/50 ML RIDER 20 MEQ/50 ML RTUPB IV ONE (20:04)
[2019-02-07] MEDS: MORPHINE SULFATE 10 MG/ML INJ IV PRN ×3 (03:40→19:55)
[2019-02-07] MEDS: ONDANSETRON HCL INJ/PF 4 MG/2 ML SDV IV PRN (03:50)
[2019-02-07] MEDS: KETOROLAC TROMETHAMINE INJ/PF 30 MG/1 ML SDV IV SCH ×3 (05:25→21:51)
[2019-02-07 08:00] LABS: ABSOLUTE EOSINOPHILS # (AUTO) 0.3 10^3/uL (0.0-0.6); ABSOLUTE LYMPHOCYTES (AUTO) 1.3 10^3/uL (0.5-4.7); ABSOLUTE MONOCYTES (AUTO) 1.1 10^3/uL (0.1-1.4); ABSOLUTE NEUT (AUTO) 9.1 10^3/uL (1.7-8.2); BASOPHILS % (AUTO) 0.3 % (0-2); EOSINOPHILS % (AUTO) 2.8 % (0-6); HEMATOCRIT 30.1 % (36.0-47.0); HEMOGLOBIN 9.9 g/dL (12.0-15.5); LYMPHOCYTES % (AUTO) 10.8 % (13-45); MEAN CORPUSCULAR HEMOGLOBIN 24.7 pg (27.0-33.4); MEAN CORPUSCULAR VOLUME 75 fl (80-97); MONOCYTES % (AUTO) 9.5 % (3-13); PLATELET COUNT 232 10^3/uL (150-450); RED BLOOD COUNT 4.01 10^6/uL (3.72-5.28); SEGMENTED NEUTROPHILS % (AUTO) 76.6 % (42-78); TOTAL CELLS COUNTED % (AUTO) 100 %; WHITE BLOOD COUNT 11.8 10^3/uL (4.0-10.5)
[2019-02-07 08:02] LABS: ANION GAP 10 (5-19); BLOOD UREA NITROGEN 7 mg/dL (7-20); CALCIUM 8.9 mg/dL (8.4-10.2); CARBON DIOXIDE 25 mmol/L (22-30); CHLORIDE 102 mmol/L (98-107); GLUCOSE 121 mg/dL (75-110); POTASSIUM 3.8 mmol/L (3.6-5.0); SODIUM 136.7 mmol/L (137-145)
--- NOTE | 2019-02-07 08:14 | RADIOLOGY REPORT (SQ) ---
EXAM DESCRIPTION: CHEST SINGLE VIEW COMPLETED DATE/TIME: 02/07/2019 8:00 am REASON FOR STUDY: shortness of breath COMPARISON: Chest films 02/05/2019, 01/28/2019, 11/14/2018 EXAM PARAMETERS: NUMBER OF VIEWS: One view. TECHNIQUE: Single frontal radiographic view of the chest acquired. RADIATION DOSE: NA LIMITATIONS: None. FINDINGS: LUNGS AND PLEURA: No opacities, masses or pneumothorax. No pleural effusion. MEDIASTINUM AND HILAR STRUCTURES: No masses. Contour normal. HEART AND VASCULAR STRUCTURES: Heart normal in size. Normal vasculature. 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 OTHER: No other significant finding. IMPRESSION: NO ACUTE RADIOGRAPHIC FINDING IN THE CHEST. TECHNICAL DOCUMENTATION: JOB ID: [id number] [employer]- All Rights Reserved Reading location - IP/workstation name: [email or web address]
[2019-02-07] MEDS: INSULIN LISPRO 100 UNIT/ML 3 ML VIAL SUBCUT SCH ×4 (08:20→21:52)
[2019-02-07] MEDS: ENOXAPARIN SODIUM INJ 40 MG/0.4 ML DISP.SYRIN SUBCUT SCH (09:36)
[2019-02-07] MEDS: FAMOTIDINE 20 MG TABLET PO SCH ×2 (09:36→17:19)
[2019-02-07] MEDS: RINGERS SOLUTION,LACTATED 1,000 ML IV PRN ×2 (09:39→21:55)
--- NOTE | 2019-02-07 11:41 | PDOC PROGRESS REPORT ---
Subjective Progress Note for:: 02/07/19 Reason For Visit: S/P LAP RIGHT HEMICOLECTOMY Physical Exam Vital Signs: Temp Pulse Resp BP Pulse Ox 98.9 F 94 14 133/65 H 92 02/07/19 08:00 02/07/19 10:08 02/07/19 10:08 02/07/19 08:00 02/07/19 10:08 Intake & Output 02/06/19 02/07/19 02/08/19 06:59 06:59 06:59 Intake Total 3863 3004 898 Balance 3863 3004 898 Weight 85.3 kg 88.9 kg Results Laboratory Results: 02/07/19 07:05 02/07/19 07:05 02/07/19 02/07/19 07:05 07:05 WBC 11.8 H RBC 4.01 Hgb 9.9 L Hct 30.1 L MCV 75 L MCH 24.7 L MCHC 33.0 RDW 14.0 Plt Count 232 Seg Neutrophils % 76.6 Lymphocytes % 10.8 L Monocytes % 9.5 Eosinophils % 2.8 Basophils % 0.3 Absolute Neutrophils 9.1 H Absolute Lymphocytes 1.3 Absolute Monocytes 1.1 Absolute Eosinophils 0.3 Absolute Basophils 0.0 Sodium 136.7 L Potassium 3.8 Chloride 102 Carbon Dioxide 25 Anion Gap 10 BUN 7 Creatinine 0.62 Est GFR ( Amer) > 60 Est GFR (Non-Af Amer) > 60 Glucose 121 H Calcium 8.9 Impressions: Chest X-Ray 02/07/19 06:00 IMPRESSION: NO ACUTE RADIOGRAPHIC FINDING IN THE CHEST. Assessment & Plan - Diagnosis (1) Colon cancer Qualifiers: Colon location: transverse Qualified Code(s): C18.4 - Malignant neoplasm of transverse colon Is this a current diagnosis for this admission?: Yes - Plan Summary Plan Summary: Is a 53-year-old female status post laparoscopic right hemicolectomy for colon cancer. The patient reports that she is feeling better today. She is ambulating in the hallways and using her incentive spirometer. She continues to have intermittent fevers at night, however these resolve after using her incentive spirometer. The patient denies flatus, however she has not had any vomiting or significant nausea. Still awaiting bowel function. Continue with aggressive pulmonary toilet and ambulation. Repeat labs tomorrow.
[2019-02-08] MEDS: KETOROLAC TROMETHAMINE INJ/PF 30 MG/1 ML SDV IV SCH ×2 (05:09→13:31)
[2019-02-08 07:35] LABS: ABSOLUTE EOSINOPHILS # (AUTO) 0.5 10^3/uL (0.0-0.6); ABSOLUTE LYMPHOCYTES (AUTO) 1.4 10^3/uL (0.5-4.7); ABSOLUTE MONOCYTES (AUTO) 1.2 10^3/uL (0.1-1.4); ABSOLUTE NEUT (AUTO) 7.7 10^3/uL (1.7-8.2); BASOPHILS % (AUTO) 0.4 % (0-2); EOSINOPHILS % (AUTO) 4.3 % (0-6); HEMOGLOBIN 10.9 g/dL (12.0-15.5); LYMPHOCYTES % (AUTO) 12.7 % (13-45); MEAN CORPUSCULAR HGB CONC 33.2 g/dL (32.0-36.0); MEAN CORPUSCULAR VOLUME 75 fl (80-97); MONOCYTES % (AUTO) 11.3 % (3-13); PLATELET COUNT 297 10^3/uL (150-450); RED BLOOD COUNT 4.38 10^6/uL (3.72-5.28); RED CELL DISTRIBUTION WIDTH 14.4 % (11.5-14.0); SEGMENTED NEUTROPHILS % (AUTO) 71.3 % (42-78); TOTAL CELLS COUNTED % (AUTO) 100 %; WHITE BLOOD COUNT 10.8 10^3/uL (4.0-10.5)
[2019-02-08 07:55] LABS: ANION GAP 13 (5-19); BLOOD UREA NITROGEN 9 mg/dL (7-20); CARBON DIOXIDE 23 mmol/L (22-30); CHLORIDE 102 mmol/L (98-107); GLUCOSE 114 mg/dL (75-110); POTASSIUM 3.8 mmol/L (3.6-5.0); SODIUM 138.2 mmol/L (137-145)
[2019-02-08] MEDS: INSULIN LISPRO 100 UNIT/ML 3 ML VIAL SUBCUT SCH ×4 (08:09→22:24)
[2019-02-08] MEDS: MORPHINE SULFATE 10 MG/ML INJ IV PRN ×2 (08:57→21:18)
[2019-02-08] MEDS: FAMOTIDINE 20 MG TABLET PO SCH ×2 (09:01→17:01)
[2019-02-08] MEDS: ENOXAPARIN SODIUM INJ 40 MG/0.4 ML DISP.SYRIN SUBCUT SCH (09:01)
[2019-02-08] MEDS ORDERED: KETOROLAC TROMETHAMINE INJ/PF 30 MG/1 ML SDV IV ONE (09:35)
[2019-02-08] MEDS ORDERED: NA PHOS,M-B/NA PHOS,DI-BA (ADULT) 133 ML ENEMA PR ONE (09:37)
[2019-02-08] MEDS: RINGERS SOLUTION,LACTATED 1,000 ML IV PRN (10:05)
[2019-02-08] MEDS ORDERED: MINERAL OIL 30 ML UDCUP PR PRN (10:44)
[2019-02-08] MEDS ORDERED: GLYCERIN 99.5% (ANHYDROUS) 177 ML PR PRN (10:45)
--- NOTE | 2019-02-08 12:35 | RADIOLOGY REPORT (SQ) ---
EXAM DESCRIPTION: ABDOMEN 2 VIEWS COMPLETED DATE/TIME: 02/08/2019 11:28 am REASON FOR STUDY: abdominal pain after colon resection K63.9 DISEASE OF INTESTINE, UNSPECIFIED COMPARISON: None. NUMBER OF VIEWS: Two views. TECHNIQUE: Supine and upright and radiographic images of the abdomen acquired. LIMITATIONS: None. FINDINGS: FREE AIR: None. No abnormal gas collections. LUNG BASES: Clear. BOWEL GAS PATTERN: Moderate stool in the descending colon. Air in nondistended stomach and small bow el loops in the mid abdomen with air-fluid levels on upright view. Patient may have a postoperative ileus. Small amount of gas and stool in the rectosigmoid. CALCIFICATIONS: No suspicious calcifications. SOFT TISSUES: No gross mass or suggestion of organomegaly. HARDWARE: Anterior abdominal wall surgical carlos are present. BONES: No acute fracture. No worrisome bone lesions. OTHER: No other significant finding. IMPRESSION: Anterior abdominal wall surgical carlos are present. Air-fluid levels in nondistended stomach and small bowel, stool in descending colon. This may repres ent an ileus bowel gas pattern TECHNICAL DOCUMENTATION: JOB ID: [id number] [employer]- All Rights Reserved Reading location - IP/workstation name: [email or web address]
--- NOTE | 2019-02-08 14:28 | PDOC PROGRESS REPORT ---
Subjective Reason For Visit: S/P LAP RIGHT HEMICOLECTOMY Physical Exam Vital Signs: Temp Pulse Resp BP Pulse Ox 98.0 F 86 18 127/71 H 100 02/08/19 11:21 02/08/19 11:21 02/08/19 11:21 02/08/19 11:21 02/08/19 11:21 Intake & Output 02/07/19 02/08/19 02/09/19 06:59 06:59 06:59 Intake Total 3004 2971 1150 Balance 3004 2971 1150 Weight 88.9 kg 89.8 kg Results Laboratory Results: 02/08/19 07:18 02/08/19 07:18 02/08/19 02/08/19 07:18 07:18 WBC 10.8 H RBC 4.38 Hgb 10.9 L Hct 33.0 L MCV 75 L MCH 25.0 L MCHC 33.2 RDW 14.4 H Plt Count 297 Seg Neutrophils % 71.3 Lymphocytes % 12.7 L Monocytes % 11.3 Eosinophils % 4.3 Basophils % 0.4 Absolute Neutrophils 7.7 Absolute Lymphocytes 1.4 Absolute Monocytes 1.2 Absolute Eosinophils 0.5 Absolute Basophils 0.0 Sodium 138.2 Potassium 3.8 Chloride 102 Carbon Dioxide 23 Anion Gap 13 BUN 9 Creatinine 0.56 Est GFR ( Amer) > 60 Est GFR (Non-Af Amer) > 60 Glucose 114 H Calcium 9.0 Impressions: Chest X-Ray 02/07/19 06:00 IMPRESSION: NO ACUTE RADIOGRAPHIC FINDING IN THE CHEST. Abdomen X-Ray 02/08/19 09:36 IMPRESSION: Anterior abdominal wall surgical carlos are present. Air-fluid levels in nondistended stomach and small bowel, stool in descending colon. This may represent an ileus bowel gas pattern Assessment & Plan - Diagnosis (1) Colon cancer Qualifiers: Colon location: transverse Qualified Code(s): C18.4 - Malignant neoplasm of transverse colon Is this a current diagnosis for this admission?: Yes - Plan Summary Plan Summary: 53-year-old female status post laparoscopic right hemicolectomy for colon cancer. The patient reports feeling constipated today. Her abdomen is "rumbling", but she feels like she cannot have a bowel movement due to co nstipation. She was given an enema, and a small bowel movement resulted. The patient is feeling much better now. She is hungry and wants to eat. She has no nausea or vomiting. She has been tolerating liquids well. Advanced to regular diet. Discontinue IV fluids. Aggressive pulmonary toilet. Out of bed. Okay to shower.
[2019-02-09] MEDS: ONDANSETRON HCL INJ/PF 4 MG/2 ML SDV IV PRN (07:08)
[2019-02-09] MEDS: INSULIN LISPRO 100 UNIT/ML 3 ML VIAL SUBCUT SCH ×4 (07:15→23:07)
[2019-02-09] MEDS: FAMOTIDINE 20 MG TABLET PO SCH ×2 (09:00→16:59)
[2019-02-09] MEDS: ENOXAPARIN SODIUM INJ 40 MG/0.4 ML DISP.SYRIN SUBCUT SCH (09:00)
[2019-02-09 10:12] LABS: ABSOLUTE EOSINOPHILS # (AUTO) 0.4 10^3/uL (0.0-0.6); ABSOLUTE LYMPHOCYTES (AUTO) 1.2 10^3/uL (0.5-4.7); ABSOLUTE MONOCYTES (AUTO) 1.1 10^3/uL (0.1-1.4); ABSOLUTE NEUT (AUTO) 8.3 10^3/uL (1.7-8.2); BASOPHILS % (AUTO) 0.4 % (0-2); EOSINOPHILS % (AUTO) 3.6 % (0-6); HEMATOCRIT 30.5 % (36.0-47.0); HEMOGLOBIN 10.3 g/dL (12.0-15.5); LYMPHOCYTES % (AUTO) 10.6 % (13-45); MEAN CORPUSCULAR HGB CONC 33.6 g/dL (32.0-36.0); MEAN CORPUSCULAR VOLUME 74 fl (80-97); MONOCYTES % (AUTO) 9.7 % (3-13); PLATELET COUNT 317 10^3/uL (150-450); RED BLOOD COUNT 4.11 10^6/uL (3.72-5.28); RED CELL DISTRIBUTION WIDTH 14.5 % (11.5-14.0); SEGMENTED NEUTROPHILS % (AUTO) 75.7 % (42-78); TOTAL CELLS COUNTED % (AUTO) 100 %; WHITE BLOOD COUNT 10.9 10^3/uL (4.0-10.5)
[2019-02-09 10:28] LABS: ANION GAP 10 (5-19); BLOOD UREA NITROGEN 10 mg/dL (7-20); CARBON DIOXIDE 25 mmol/L (22-30); CHLORIDE 103 mmol/L (98-107); GLUCOSE 143 mg/dL (75-110); POTASSIUM 3.7 mmol/L (3.6-5.0); SODIUM 137.7 mmol/L (137-145)
[2019-02-09] MEDS: HYDROCODONE/ACETAMINOPHEN 10-325 MG TABLET PO PRN ×2 (12:06→19:38)
--- NOTE | 2019-02-09 12:10 | PDOC PROGRESS REPORT ---
Subjective Progress Note for:: 02/09/19 Reason For Visit: S/P LAP RIGHT HEMICOLECTOMY Physical Exam Vital Signs: Temp Pulse Resp BP Pulse Ox 98.4 F 94 18 138/74 H 100 02/09/19 11:25 02/09/19 11:25 02/09/19 11:25 02/09/19 11:25 02/09/19 11:25 Intake & Output 02/08/19 02/09/19 02/10/19 06:59 06:59 06:59 Intake Total 2971 2387 Output Total 1 Balance 2971 2386 Weight 89.8 kg Results Laboratory Results: 02/09/19 10:01 02/09/19 10:01 02/09/19 02/09/19 10:01 10:01 WBC 10.9 H RBC 4.11 Hgb 10.3 L Hct 30.5 L MCV 74 L MCH 25.0 L MCHC 33.6 RDW 14.5 H Plt Count 317 Seg Neutrophils % 75.7 Lymphocytes % 10.6 L Monocytes % 9.7 Eosinophils % 3.6 Basophils % 0.4 Absolute Neutrophils 8.3 H Absolute Lymphocytes 1.2 Absolute Monocytes 1.1 Absolute Eosinophils 0.4 Absolute Basophils 0.0 Sodium 137.7 Potassium 3.7 Chloride 103 Carbon Dioxide 25 Anion Gap 10 BUN 10 Creatinine 0.58 Est GFR ( Amer) > 60 Est GFR (Non-Af Amer) > 60 Glucose 143 H Calcium 9.0 Impressions: Chest X-Ray 02/07/19 06:00 IMPRESSION: NO ACUTE RADIOGRAPHIC FINDING IN THE CHEST. Abdomen X-Ray 02/08/19 09:36 IMPRESSION: Anterior abdominal wall surgical carlos are present. Air-fluid levels in nondistended stomach and small bowel, stool in descending colon. This may represent an ileus bowel gas pattern Assessment & Plan - Diagnosis (1) Colon cancer Qualifiers: Colon location: transverse Qualified Code(s): C18.4 - Malignant neoplasm of transverse colon Is this a current diagnosis for this admission?: Yes - Plan Summary Plan Summary: This is a 53-year-old female status post laparoscopic right hemicolectomy. The patient reported constipation yesterday. She found good relief with an enema. The patient is requesting another enema today. Currently she is afebrile, and her pain is controlled. Her x-rays yesterday showed air and stool within the colon. Continue with aggressive pulmonary toilet. Enema for constipation. Ambulate in hallway. Continue diet.
[2019-02-09] MEDS ORDERED: NA PHOS,M-B/NA PHOS,DI-BA (ADULT) 133 ML ENEMA PR ONE (14:00)
[2019-02-10] MEDS: INSULIN LISPRO 100 UNIT/ML 3 ML VIAL SUBCUT SCH (07:29)
--- NOTE | 2019-02-10 09:38 | PDOC DISCHARGE SUMMARY ---
General - Admit/Disc Date/PCP Admission Date/Primary Care Provider: 02/03/19 08:02 NATALIA MCCARTY Discharge Date: 02/10/19 - Discharge Diagnosis (1) Colon cancer Is this a current diagnosis for this admission?: Yes - Additional Information Discharge Diet: As Tolerated Discharge Activity: No Lifting Over 10 Pounds Home Medications: Albuterol Sulfate [Proair HFA Inhalation Aerosol 8.5 gm MDI] 1 puff IH DAILY 12/02/13 Ferrous Sulfate [Iron] 1 tab PO BID 12/02/13 Insulin Glargine,Hum.rec.anlog [Lantus] 20 unit SQ QHS 07/02/18 Metformin HCl 500 mg PO DAILY 07/02/18 Albuterol Sulfate [Albuterol Sulfate 2.5mg/3 mL] 2.5 mg IH Q4 PRN 09/11/18 Diphenhydramine HCl [Benadryl 50 mg Capsule] 50 mg PO Q6 PRN #20 capsule 10/06/18 Famotidine [Pepcid 20 mg Tablet] 20 mg PO BID #12 tablet 10/06/18 Fluticasone Propionate [Flovent Diskus] 50 mcg IH PRN PRN 02/03/19 History of Present Illness History of Present Illness: ORION PEREZ is a 53 year old female with a large adenoma of the transverse colon, not amenable to endoscopic resection. The patient was scheduled for surgery to remove this portion of the colon, and ensure that it did not harbor carcinoma. Patient was taken to surgery on 02/03/2019 where laparoscopic right hemicolectomy was performed with primary anastomosis. The patient was taken to the floor in stable condition. Hospital Course Hospital Course: The patient was taken to the floor in stable condition. Over the coming days, she tolerated liquids very well. Patient struggles with constipation at home, and became constipated during her stay here. X-rays were obtained and showed an ileus pattern. After several enemas, the patient began having normal bowel movements, ambulating, and tolerating regular diet. By 02/10/2019 the patient was doing well, had reached maximal hospital benefit, and was fit for discharge. Physical Exam Vital Signs: Temp Pulse Resp BP Pulse Ox 98.9 F 98 17 147/89 H 98 02/10/19 08:07 02/10/19 08:07 02/10/19 08:07 02/10/19 08:07 02/10/19 08:07 Intake & Output 02/09/19 02/10/19 02/11/19 06:59 06:59 06:59 Intake Total 2387 1053 Output Total 1 2 Balance 2386 1051 Weight 90.2 kg Results Laboratory Results: 02/09/19 10:01 02/09/19 10:01 02/09/19 02/09/19 10:01 10:01 WBC 10.9 H RBC 4.11 Hgb 10.3 L Hct 30.5 L MCV 74 L MCH 25.0 L MCHC 33.6 RDW 14.5 H Plt Count 317 Seg Neutrophils % 75.7 Lymphocytes % 10.6 L Monocytes % 9.7 Eosinophils % 3.6 Basophils % 0.4 Absolute Neutrophils 8.3 H Absolute Lymphocytes 1.2 Absolute Monocytes 1.1 Absolute Eosinophils 0.4 Absolute Basophils 0.0 Sodium 137.7 Potassium 3.7 Chloride 103 Carbon Dioxide 25 Anion Gap 10 BUN 10 Creatinine 0.58 Est GFR ( Amer) > 60 Est GFR (Non-Af Amer) > 60 Glucose 143 H Calcium 9.0 Impressions: Chest X-Ray 02/07/19 06:00 IMPRESSION: NO ACUTE RADIOGRAPHIC FINDING IN THE CHEST. Abdomen X-Ray 02/08/19 09:36 IMPRESSION: Anterior abdominal wall surgical carlos are present. Air-fluid levels in nondistended stomach and small bowel, stool in descending colon. This may represent an ileus bowel gas pattern Qualifiers - * PATIENT BEING DISCHARGED WITH ANY OF THE FOLLOWING DIAGNOSIS: No Plan Discharge Plan: Discharge home. Diet as tolerated. Activity: No lifting greater than 10 pounds x 6 weeks after surgery. Follow-up with me in 7-10 days. [place] 10/325 mg p.o. every 6 hours as needed for pain. Time Spent: Less than 30 Minutes
[2019-02-10] MEDS: FAMOTIDINE 20 MG TABLET PO SCH (09:49)
[2019-02-10] MEDS: ENOXAPARIN SODIUM INJ 40 MG/0.4 ML DISP.SYRIN SUBCUT SCH (09:56)
[2019-02-10 10:40] VITALS: BP 130/74
== END 2019-02-10 11:21 | disposition hospice, home (50) | DRG 331 ==
LOC: INOR 08:02 → EDSTATUS 11:30 → 4W 17:39 → 4S 02-06 17:54
PROVIDERS: ADMIT Surgery; ATTEND Surgery
PROC: 0DTF4ZZ Resection of Right Large Intestine, Percutaneous Endoscopic Approach (ICD-10-PCS; principal; 2019-02-03 10:45)
PROC: 3E0F73Z Introduction of Anti-inflammatory into Respiratory Tract, Via Natural or Artificial Opening (ICD-10-PCS; 2019-02-05)
DX: C18.4 Malignant neoplasm of transverse colon (principal); K59.00 Constipation, unspecified; F17.210 Nicotine dependence, cigarettes, uncomplicated; Z79.899 Other long term (current) drug therapy; Z79.4 Long term (current) use of insulin; Z88.0 Allergy status to penicillin; Z82.5 Family history of asthma and other chronic lower respiratory diseases; Z82.49 Family history of ischemic heart disease and other diseases of the circulatory system
CPT/HCPCS: 36415; 71045; 71046; 74019; 790; 80048; 82962; 85025; 85027; 88309; 88342; 93005; 93010; 94640; J0131; J0330; J1100; J1170; J1650; J1741; J1815; J1885; J1956; J2250; J2270; J2405; J2704; J2765; J3010; J3480; J3490; J7030; J7050; J7120; S0028

== ENCOUNTER → 2019-02-23 | Outpatient (CLI) | payer SELFPAY ==
[2019-02-23 15:43] LABS: ABSOLUTE BASOPHILS # (AUTO) 0.1 10^3/uL (0.0-0.2); ABSOLUTE EOSINOPHILS # (AUTO) 0.1 10^3/uL (0.0-0.6); ABSOLUTE LYMPHOCYTES (AUTO) 1.6 10^3/uL (0.5-4.7); ABSOLUTE MONOCYTES (AUTO) 0.8 10^3/uL (0.1-1.4); ABSOLUTE NEUT (AUTO) 8.8 10^3/uL (1.7-8.2); BASOPHILS % (AUTO) 0.5 % (0-2); EOSINOPHILS % (AUTO) 0.5 % (0-6); HEMATOCRIT 31.5 % (36.0-47.0); HEMOGLOBIN 10.3 g/dL (12.0-15.5); LYMPHOCYTES % (AUTO) 14.2 % (13-45); MEAN CORPUSCULAR HEMOGLOBIN 24.1 pg (27.0-33.4); MEAN CORPUSCULAR HGB CONC 32.6 g/dL (32.0-36.0); MEAN CORPUSCULAR VOLUME 74 fl (80-97); MONOCYTES % (AUTO) 6.9 % (3-13); PLATELET COUNT 537 10^3/uL (150-450); RED BLOOD COUNT 4.27 10^6/uL (3.72-5.28); SEGMENTED NEUTROPHILS % (AUTO) 77.9 % (42-78); TOTAL CELLS COUNTED % (AUTO) 100 %; WHITE BLOOD COUNT 11.2 10^3/uL (4.0-10.5)
[2019-02-23 16:12] LABS: ANION GAP 12 (5-19); BLOOD UREA NITROGEN 7 mg/dL (7-20); CALCIUM 9.9 mg/dL (8.4-10.2); CARBON DIOXIDE 28 mmol/L (22-30); CHLORIDE 98 mmol/L (98-107); GLUCOSE 164 mg/dL (75-110); POTASSIUM 4.2 mmol/L (3.6-5.0); SODIUM 138.4 mmol/L (137-145)
== END ==
LOC: OD 14:28
PROVIDERS: ATTEND Physician Assistant Surgical
DX: R11.0 Nausea (principal); R53.83 Other fatigue; Z90.49 Acquired absence of other specified parts of digestive tract
CPT/HCPCS: 36415; 80048; 85025

== ENCOUNTER 2019-03-19 09:45 | Inpatient (IN) | payer SELFPAY ==
[2019-03-19] MEDS ORDERED: LIDOCAINE 2% INJ-PF (20 MG/ML) 2 ML AMPUL ONE (09:49)
[2019-03-19] MEDS ORDERED: METOCLOPRAMIDE HCL INJ/PF 10 MG/2 ML SDV ONE (09:49)
[2019-03-19] MEDS ORDERED: PHENYLEPHRINE HCL INJ/PF 10 MG/1 ML SDV ONE (09:49)
[2019-03-19] MEDS ORDERED: MORPHINE SULFATE 10 MG/ML INJ IV PRN ×2 (10:28→12:30)
[2019-03-19] MEDS ORDERED: MORPHINE SULFATE 10 MG/ML INJ ONE (10:31)
--- NOTE | 2019-03-19 10:35 | PDOC H&P ---
History of Present Illness Admission Date/PCP: 03/19/19 09:45 JOHN CARPIO PA-C Patient complains of: Painful left lower quadrant mass History of Present Illness: ORION PEREZ is a 53 year old female approximately 6 weeks status post laparoscopic right hemicolectomy for cancer. The patient has done relatively well for the last few weeks. Over the last 1 week she reports swelling and induration of an area in the left lower quadrant. The patient reports that it began as a "pimple" and began to swell, enlarge, and become incredibly painful. Her pain is sharp and stabbing. It does not radiate. Nothing makes it better. Palpation and movement make it worse. She denies fevers or chills. Patient presented to my office today and was evaluated. Limited incision and drainage was performed in the left lower quadrant, showing a large subcutaneous cavity with turbid fluid present. This was inconsistent with both abscess and enterocutaneous fistula. Due to the uncertain nature of the lesion, she was sent to the hospital for admission. The patient denies at this time chest pain, shortness of breath, dizziness, orthostasis, blurry vision. The patient does report fatigue, malaise, and inability to eat. Past Medical History Cardiac Medical History: Denies: Atrial Fibrillation, Congestive Heart Failure, Coronary Artery Disease, Myocardial Infarction, Hyperlipidema, Hypertension, Peripheral Vascular Disease, Pulmonary Embolism, Heart Murmur Pulmonary Medical History: Reports: Asthma - MILD Denies: Bronchitis, Chronic Obstructive Pulmonary Disease (COPD), Pneumonia, Respiratory Failure, Sleep Apnea, Tuberculosis Neurological Medical History: Denies: Seizures Endocrine Medical History: Reports: Diabetes Mellitus Type 2 Denies: Hyperthyroidism, Hypothyroidism Renal/ Medical History: Denies: End Stage Renal Disease Malignancy Medical History: Denies: Breast Cancer, Cervical Cancer, Leukemia, Lung Cancer, Ovarian Cancer GI Medical History: Denies: Crohn's Disease, Gastroesophageal Reflux Disease, Hiatal Hernia Musculoskeltal Medical History: Denies: Arthritis, Fibromyalgia Psychiatric Medical History: Reports: Depression Denies: Bipolar Disorder, Dementia, Post Traumatic Stress Disorder Hematology: Denies: Anemia, Hemophilia, Sickle Cell Disease Infectious Medical History: Denies: HIV Past Surgical History Past Surgical History: Reports: Orthopedic Surgery - R shoulder, Tubal Ligation Denies: Amputation, Appendectomy, Section, Cholecystectomy, Colostomy, Coronary Artery Bypass Graft, Gastric Bypass Surgery, Herniorrhaphy, Hysterectomy, Mastectomy, Pacemaker, Tonsillectomy Social History Smoking Status: Current Every Day Smoker Hx Recreational Drug Use: No Hx Prescription Drug Abuse: No Family History Family History: Reviewed & Not Pertinent Parental Family History Reviewed: Yes Children Family History Reviewed: Yes Sibling(s) Family History Reviewed.: Yes Medication/Allergy Home Medications: Albuterol Sulfate [Proair HFA Inhalation Aerosol 8.5 gm MDI] 1 puff IH DAILY 12/02/13 Ferrous Sulfate [Iron] 1 tab PO BID 12/02/13 Insulin Glargine,Hum.rec.anlog [Lantus] 20 unit SQ QHS 07/02/18 Metformin HCl 500 mg PO DAILY 07/02/18 Albuterol Sulfate [Albuterol Sulfate 2.5mg/3 mL] 2.5 mg IH Q4 PRN 09/11/18 Diphenhydramine HCl [Benadryl 50 mg Capsule] 50 mg PO Q6 PRN #20 capsule 10/06/18 Famotidine [Pepcid 20 mg Tablet] 20 mg PO BID #12 tablet 10/06/18 Fluticasone Propionate [Flovent Diskus] 50 mcg IH PRN PRN 02/03/19 Allergies/Adverse Reactions: Penicillins Allergy (Severe, Verified 02/23/19 13:34) Hives Review of Systems Constitutional: PRESENT: anorexia, fatigue, weakness. ABSENT: chills Eyes: ABSENT: visual disturbances Ears: ABSENT: hearing changes Nose, Mouth, and Throat: ABSENT: sore throat Cardiovascular: ABSENT: chest pain, dyspnea on exertion Respiratory: ABSENT: cough Gastrointestinal: PRESENT: abdominal pain Genitourinary: ABSENT: dysuria Musculoskeletal: ABSENT: back pain Integumentary: PRESENT: lesions - Left lower quadrant masslike lesion with induration and erythema present Neurological: ABSENT: confusion, convulsions, dizziness Psychiatric: ABSENT: anxiety, depression Endocrine: ABSENT: cold intolerance, heat intolerance Hematologic/Lymphatic: ABSENT: easy bleeding, easy bruising Physical Exam Vital Signs: Temp Pulse Resp BP Pulse Ox 98.5 F 107 H 16 137/65 H 96 03/19/19 10:11 03/19/19 10:11 03/19/19 10:11 03/19/19 10:11 03/19/19 10:11 General appearance: PRESENT: mild distress - Left lower quadrant pain. Head exam: PRESENT: atraumatic, normocephalic Eye exam: PRESENT: EOMI, PERRLA. ABSENT: scleral icterus Mouth exam: PRESENT: moist, neck supple Neck exam: ABSENT: meningismus, tenderness, thyromegaly, tracheal deviation Respiratory exam: PRESENT: clear to auscultation delfina, unlabored. ABSENT: chest wall tenderness, tachypnea, wheezes Cardiovascular exam: PRESENT: RRR Pulses: PRESENT: normal radial pulses Vascular exam: PRESENT: normal capillary refill. ABSENT: pallor GI/Abdominal exam: PRESENT: guarding - Left lower quadrant, soft, tenderness - Overlying left lower quadrant masslike lesion.. ABSENT: distended, firm Rectal exam: PRESENT: deferred Extremities exam: ABSENT: clubbing Musculoskeletal exam: ABSENT: deformity Neurological exam: PRESENT: alert, awake, oriented to person, oriented to place, oriented to time, oriented to situation Psychiatric exam: ABSENT: agitated, anxious, depressed Focused psych exam: ABSENT: delusional Skin exam: PRESENT: erythema - Left lower quadrant. ABSENT: cyanosis, jaundice Assessment & Plan - Diagnosis (1) Left lower quadrant abdominal wall mass Is this a current diagnosis for this admission?: Yes - Plan Summary Plan Summary: This is a 53-year-old female approximately 6 weeks status post laparoscopic right hemicolectomy for cancer. The patient now has a left lower quadrant abdominal wall mass. Per history, it appeared to be consistent with an abscess. Limited incision and drainage was performed in the office. No typical abscess could be identified. There was however a large cavity with clear/turbid fluid present. There was no evidence of enterocutaneous fistula. At present, I am unsure the exact etiology of this lesion. I would like to rule out intra- abdominal pathology as well as metastatic involvement. Plan for CT scan of the abdomen and pelvis today stat. Laboratory evaluation stat. Further recommendations will be determined based on the patient's clinical course.
[2019-03-19] MEDS: ONDANSETRON HCL INJ/PF 4 MG/2 ML SDV IV PRN (10:55)
[2019-03-19] MEDS: CIPROFLOXACIN 400 MG/D5W RTU 400 MG/200 ML RTUPB IV SCH (11:30)
[2019-03-19] MEDS: RINGERS SOLUTION,LACTATED 1,000 ML IV PRN (11:30)
[2019-03-19 11:52] LABS: HEMATOCRIT 30.8 % (36.0-47.0); HEMOGLOBIN 9.9 g/dL (12.0-15.5); MEAN CORPUSCULAR HEMOGLOBIN 23.6 pg (27.0-33.4); MEAN CORPUSCULAR HGB CONC 32.3 g/dL (32.0-36.0); MEAN CORPUSCULAR VOLUME 73 fl (80-97); PLATELET COUNT 393 10^3/uL (150-450); RED BLOOD COUNT 4.22 10^6/uL (3.72-5.28); RED CELL DISTRIBUTION WIDTH 14.6 % (11.5-14.0)
[2019-03-19 12:18] LABS: ANION GAP 16 (5-19); BLOOD UREA NITROGEN 9 mg/dL (7-20); CALCIUM 9.6 mg/dL (8.4-10.2); CARBON DIOXIDE 25 mmol/L (22-30); CHLORIDE 100 mmol/L (98-107); GLUCOSE 109 mg/dL (75-110); POTASSIUM 3.9 mmol/L (3.6-5.0); SODIUM 140.5 mmol/L (137-145)
[2019-03-19] MEDS ORDERED: GLUCAGON,HUMAN RECOMB 1 MG INJ IM PRN (12:30)
[2019-03-19] MEDS ORDERED: DEXTROSE 40% GEL 15 GM TUBE PO PRN (12:30)
[2019-03-19] MEDS ORDERED: DEXTROSE 50%-WATER SYRINGE 12.5 GM/25 ML DOSE IV PRN (12:30)
[2019-03-19] MEDS ORDERED: DEXTROSE 40% GEL 15 GM TUBE X 2 PO PRN (12:30)
[2019-03-19] MEDS ORDERED: DEXTROSE 50%-WATER SYRINGE 25 GM/50 ML DOSE IV PRN (12:30)
[2019-03-19] MEDS ORDERED: OXYCODONE-ACETAMINOPHEN 5-325 MG TABLET PO PRN (12:31)
[2019-03-19] MEDS ORDERED: NORMAL SALINE 1000 ML 1,000 ML IV PRN (12:32)
[2019-03-19] MEDS ORDERED: ONDANSETRON HCL INJ/PF 4 MG/2 ML SDV IV PRN (12:32)
[2019-03-19] MEDS: METRONIDAZOLE 500 MG/NS RTU 500 MG/100 ML RTUPB IV SCH ×2 (13:38→22:58)
--- NOTE | 2019-03-19 15:12 | RADIOLOGY REPORT (SQ) ---
EXAM DESCRIPTION: CT ABD/PELVIS WITH IV ORAL COMPLETED DATE/TIME: 03/19/2019 2:53 pm REASON FOR STUDY: abdominal wall mass with infection COMPARISON: None. TECHNIQUE: CT scan of the abdomen and pelvis performed using helical scanning technique with dynamic intravenous contrast injection. Patient drank oral contrast. Images reviewed with lung, soft tissue , and bone windows. Reconstructed coronal and sagittal MPR images reviewed. Delayed images for evalua tion of the urinary system also acquired. All images stored on PACS. All CT scanners at this facility use dose modulation, iterative reconstruction, and/or weight based d osing when appropriate to reduce radiation dose to as low as reasonably achievable (ALARA). [facility]: Dose Right [facility]: CareDose [facility]: Dose Right [facility]: Teradose 4D [facility]: PasswordBox CONTRAST TYPE AND DOSE: contrast/concentration: Isovue 350.00 mg/ml; Total Contrast Delivered: 83.0 ml; Total Saline Delivered: 69.0 ml RENAL FUNCTION: Creatinine 0.56 RADIATION DOSE: CT Rad equipment meets quality standard of care and radiation dose reduction techniq ues were employed. CTDIvol: 10.7 - 12.4 mGy. DLP: 1153 mGy-cm.. LIMITATIONS: None. FINDINGS: Patient drank oral contrast which is primarily in small bowel and colon. On axial images 48 through 62, there has been anastomotic breakdown at a right hemicolectomy anastomo tic site just deep to the umbilicus. There is proximal transverse colon wall thickening and extensiv e mesenteric inflammation at the ileocolic anastomosis. Several extraluminal air bubbles are present with a tract extending through the left rectus muscle sheath and into the anterior abdominal wall, w here a 4 cm collection of extravasated oral contrast is present. These findings are also well demons trated on sagittal images 45 through 52. No free pelvic fluid or free intraperitoneal fluid or free intraperitoneal air. Oral contrast is present in the descending and sigmoid colon without other areas of extravasation not ed. Few sigmoid diverticuli without acute diverticulitis. LOWER CHEST: No significant findings. No nodules or infiltrates. LIVER: Normal size. No masses. No dilated ducts. SPLEEN: Normal size. No focal lesions. PANCREAS: No masses. No significant calcifications. No adjacent inflammation or peripancreatic fluid collections. Pancreatic duct not dilated. GALLBLADDER: Gallstones. No inflammatory changes to suggest cholecystitis. ADRENAL GLANDS: No significant masses or asymmetry. RIGHT KIDNEY AND URETER: No solid masses. No significant calcifications. No hydronephrosis or hyd roureter. LEFT KIDNEY AND URETER: No solid masses. No significant calcifications. No hydronephrosis or hydr oureter. AORTA AND VESSELS: No aneurysm. No dissection. Renal arteries, SMA, celiac without stenosis. RETROPERITONEUM: No retroperitoneal adenopathy, hemorrhage or masses. BOWEL AND PERITONEAL CAVITY: As above APPENDIX: Surgically absent PELVIS: Normal size female pelvic organs. Bladder unremarkable. No significant cul-de-sac free flui d. ABDOMINAL WALL: As above BONES: No significant or acute findings. OTHER: No other significant finding. IMPRESSION: Post right hemicolectomy. There is anastomotic breakdown with mesenteric inflammation a t the ileocolic anastomosis, and oral contrast tracking through the left rectus sheath at the level o f the umbilicus, with a 4 cm pocket of contrast in the anterior abdominal wall TECHNICAL DOCUMENTATION: JOB ID: [id number] Quality ID # [id number]: Final reports with documentation of one or more dose reduction techniques (e.g., Au tomated exposure control, adjustment of the mA and/or kV according to patient size, use of iterative reconstruction technique) 2010 [employer]- All Rights Reserved Reading location - IP/workstation name: [email or web address]
[2019-03-19] MEDS ORDERED: BUPIVACAINE HCL 0.25 % INJ/PF (2.5 MG/1 ML) 30 ML VIAL ONE (16:14)
[2019-03-19] MEDS ORDERED: FENTANYL CITRATE INJ/PF 250 MCG/5 ML AMPULE ONE (17:12)
[2019-03-19] MEDS ORDERED: HYDROMORPHONE HCL INJ/PF 2 MG/ML AMPULE ONE (17:12)
[2019-03-19] MEDS ORDERED: ACETAMINOPHEN 1,000 MG/100 ML RTUPB IV ONE (17:13)
[2019-03-19] MEDS ORDERED: ONDANSETRON HCL INJ/PF 4 MG/2 ML SDV ONE (17:13)
[2019-03-19] MEDS ORDERED: MIDAZOLAM 2 MG/2 ML INJ ONE (17:13)
[2019-03-19] MEDS ORDERED: PROPOFOL INJ 200 MG/20 ML VIAL IV ONE (17:13)
[2019-03-19] MEDS ORDERED: DEXMEDETOMIDINE INJ 80 MCG/20 ML VIAL IV ONE (17:39)
[2019-03-19] MEDS ORDERED: PIPERACILLIN SODIUM/TAZOBACTAM 3.375 GM in NORMAL SALINE 100 ML IV SCH (18:00)
[2019-03-19] MEDS ORDERED: KETOROLAC TROMETHAMINE INJ/PF 30 MG/1 ML SDV IV SCH (18:00)
[2019-03-19] MEDS: INSULIN LISPRO 100 UNIT/ML 3 ML VIAL SUBCUT SCH ×2 (19:12→22:58)
[2019-03-19] MEDS ORDERED: PROPOFOL 1,000 MG/100 ML INFUS..BTL IV ONE (21:30)
[2019-03-19] MEDS: MORPHINE SULFATE 60 MG/60 ML RTUINJ IV PRN (22:09)
[2019-03-19] MEDS ORDERED: PROPOFOL 1,000 MG/100 ML INFUS..BTL IV PRN (22:20)
--- NOTE | 2019-03-19 22:29 | RADIOLOGY REPORT (SQ) ---
EXAM DESCRIPTION: [facility]: XR CHEST 1 VIEW CLINICAL HISTORY: 53 years Female, placement of central line and ET tube placement FINDINGS: Since 02/07/2019, endotracheal tube has been placed, 3 cm above rachel. Enteric tube extends into the stomach. Left IJ line tip is in the left brachiocephalic vein, near the junction with the SVC. No pneumothorax or acute infiltrate. No pleural effusion. No mediastinal widening or shift. Heart size is normal. IMPRESSION: 1. Lines as described. 2. No pneumothorax or acute infiltrates.
[2019-03-20] MEDS: CIPROFLOXACIN 400 MG/D5W RTU 400 MG/200 ML RTUPB IV SCH ×3 (00:08→21:36)
[2019-03-20] MEDS: RINGERS SOLUTION,LACTATED 1,000 ML IV PRN ×3 (00:08→19:22)
[2019-03-20 04:40] LABS: ABSOLUTE LYMPHOCYTES (AUTO) 0.7 10^3/uL (0.5-4.7); ABSOLUTE MONOCYTES (AUTO) 0.9 10^3/uL (0.1-1.4); ABSOLUTE NEUT (AUTO) 11.9 10^3/uL (1.7-8.2); BASOPHILS % (AUTO) 0.1 % (0-2); HEMATOCRIT 30.2 % (36.0-47.0); HEMOGLOBIN 9.7 g/dL (12.0-15.5); LYMPHOCYTES % (AUTO) 5.2 % (13-45); MEAN CORPUSCULAR HEMOGLOBIN 23.3 pg (27.0-33.4); MEAN CORPUSCULAR HGB CONC 32.1 g/dL (32.0-36.0); MEAN CORPUSCULAR VOLUME 73 fl (80-97); MONOCYTES % (AUTO) 6.4 % (3-13); PLATELET COUNT 389 10^3/uL (150-450); RED BLOOD COUNT 4.16 10^6/uL (3.72-5.28); RED CELL DISTRIBUTION WIDTH 14.8 % (11.5-14.0); SEGMENTED NEUTROPHILS % (AUTO) 88.3 % (42-78); TOTAL CELLS COUNTED % (AUTO) 100 %; WHITE BLOOD COUNT 13.5 10^3/uL (4.0-10.5)
[2019-03-20 04:46] LABS: INTERNATIONAL RATION (INR) 1.22
[2019-03-20 05:01] LABS: ALANINE AMINOTRANSFERASE 30 U/L (9-52); ALBUMIN 2.5 g/dL (3.5-5.0); ALKALINE PHOSPHATASE 48 U/L (38-126); ANION GAP 10 (5-19); ASPARTATE AMINO TRANSFERASE 12 U/L (14-36); BILIRUBIN,DIRECT 0.5 mg/dL (0.0-0.4); BILIRUBIN,TOTAL 0.8 mg/dL (0.2-1.3); BLOOD UREA NITROGEN 6 mg/dL (7-20); CALCIUM 8.6 mg/dL (8.4-10.2); CARBON DIOXIDE 25 mmol/L (22-30); CHLORIDE 101 mmol/L (98-107); GLUCOSE 166 mg/dL (75-110); PHOSPHORUS 4.8 mg/dL (2.5-4.5); SODIUM 135.5 mmol/L (137-145); TOTAL PROTEIN 5.6 g/dL (6.3-8.2); TRIGLYCERIDES 65 mg/dL (<150)
[2019-03-20 05:19] LABS: PREALBUMIN 10.5 mg/dL (17.6-36.0)
[2019-03-20] MEDS: HEPARIN SOD (PORCINE) 5,000 UNIT/ML 1 ML SYRINGE SUBCUT SCH ×3 (05:29→21:35)
[2019-03-20] MEDS: METRONIDAZOLE 500 MG/NS RTU 500 MG/100 ML RTUPB IV SCH ×3 (05:29→21:36)
[2019-03-20] MEDS ORDERED: NORMAL SALINE 500 ML IV ONE (06:45)
[2019-03-20] MEDS: ONDANSETRON HCL INJ/PF 4 MG/2 ML SDV IV PRN (06:57)
[2019-03-20] MEDS ORDERED: MAGNESIUM SULFATE INJ 8 MEQ/2 ML IV ONE (07:05)
[2019-03-20] MEDS ORDERED: DEXTROSE 40% GEL 15 GM TUBE PO PRN (07:30)
[2019-03-20] MEDS ORDERED: DEXTROSE 40% GEL 15 GM TUBE X 2 PO PRN (07:30)
[2019-03-20] MEDS ORDERED: GLUCAGON,HUMAN RECOMB 1 MG INJ IM PRN (07:30)
[2019-03-20] MEDS ORDERED: DEXTROSE 50%-WATER SYRINGE 25 GM/50 ML DOSE IV PRN (07:30)
[2019-03-20] MEDS ORDERED: DEXTROSE 10%-WATER 1,000 ML IV PRN (07:30)
[2019-03-20] MEDS ORDERED: DEXTROSE 50%-WATER SYRINGE 12.5 GM/25 ML DOSE IV PRN (07:30)
[2019-03-20] MEDS: KETOROLAC TROMETHAMINE INJ/PF 30 MG/1 ML SDV IV SCH ×3 (07:44→21:35)
[2019-03-20] MEDS: MAGNESIUM SULFATE 1 GM/D5W 100 ML IV SCH ×2 (07:44→09:43)
[2019-03-20] MEDS ORDERED: FAMOTIDINE INJ/PF 20 MG/2 ML SDV IV SCH (10:00)
[2019-03-20] MEDS: INSULIN REG, HUMAN 100 UNIT/ML 3 ML VIAL (PYX) SUBCUT PRN ×2 (11:33→22:53)
[2019-03-20] MEDS: AMINO ACIDS 5 %/DEXTROSE 20 % 1,000 ML IV PRN (17:17)
[2019-03-20] MEDS ORDERED: RINGERS SOLUTION,LACTATED 1,000 ML IV ONE (23:45)
[2019-03-21] MEDS: MORPHINE SULFATE 60 MG/60 ML RTUINJ IV PRN (03:13)
[2019-03-21 04:23] LABS: ABSOLUTE EOSINOPHILS # (AUTO) 0.1 10^3/uL (0.0-0.6); ABSOLUTE MONOCYTES (AUTO) 0.9 10^3/uL (0.1-1.4); BASOPHILS % (AUTO) 0.3 % (0-2); EOSINOPHILS % (AUTO) 0.9 % (0-6); HEMATOCRIT 22.3 % (36.0-47.0); LYMPHOCYTES % (AUTO) 10.7 % (13-45); MEAN CORPUSCULAR HEMOGLOBIN 23.7 pg (27.0-33.4); MEAN CORPUSCULAR VOLUME 74 fl (80-97); MONOCYTES % (AUTO) 10.1 % (3-13); PLATELET COUNT 253 10^3/uL (150-450); RED BLOOD COUNT 3.02 10^6/uL (3.72-5.28); RED CELL DISTRIBUTION WIDTH 14.7 % (11.5-14.0); TOTAL CELLS COUNTED % (AUTO) 100 %; WHITE BLOOD COUNT 8.9 10^3/uL (4.0-10.5)
[2019-03-21 04:24] LABS: HEMOGLOBIN 7.1 g/dL (12.0-15.5)
[2019-03-21 04:37] LABS: ALANINE AMINOTRANSFERASE 19 U/L (9-52); ALBUMIN 1.9 g/dL (3.5-5.0); ALKALINE PHOSPHATASE 35 U/L (38-126); ANION GAP 6 (5-19); ASPARTATE AMINO TRANSFERASE 8 U/L (14-36); BILIRUBIN,DIRECT 0.3 mg/dL (0.0-0.4); BILIRUBIN,TOTAL 0.5 mg/dL (0.2-1.3); BLOOD UREA NITROGEN 14 mg/dL (7-20); CALCIUM 7.9 mg/dL (8.4-10.2); CARBON DIOXIDE 28 mmol/L (22-30); CHLORIDE 101 mmol/L (98-107); GLUCOSE 233 mg/dL (75-110); PHOSPHORUS 3.3 mg/dL (2.5-4.5); SODIUM 134.8 mmol/L (137-145); TOTAL PROTEIN 4.4 g/dL (6.3-8.2)
[2019-03-21 04:43] LABS: PREALBUMIN 6.3 mg/dL (17.6-36.0)
[2019-03-21] MEDS: INSULIN REG, HUMAN 100 UNIT/ML 3 ML VIAL (PYX) SUBCUT PRN ×2 (06:01→21:59)
[2019-03-21] MEDS: METRONIDAZOLE 500 MG/NS RTU 500 MG/100 ML RTUPB IV SCH ×3 (06:01→21:59)
[2019-03-21] MEDS: HEPARIN SOD (PORCINE) 5,000 UNIT/ML 1 ML SYRINGE SUBCUT SCH ×3 (06:02→22:00)
[2019-03-21] MEDS: KETOROLAC TROMETHAMINE INJ/PF 30 MG/1 ML SDV IV SCH ×3 (06:03→22:00)
[2019-03-21] MEDS: CIPROFLOXACIN 400 MG/D5W RTU 400 MG/200 ML RTUPB IV SCH ×2 (09:21→21:59)
--- NOTE | 2019-03-21 11:31 | PDOC PROGRESS REPORT ---
Subjective Progress Note for:: 03/20/19 Reason For Visit: ABDOMINAL MASS Physical Exam Vital Signs: Results Laboratory Results: Impressions: Abdomen/Pelvis CT 03/19/19 00:00 IMPRESSION: Post right hemicolectomy. There is anastomotic breakdown with mesenteric inflammation at the ileocolic anastomosis, and oral contrast tracking through the left rectus sheath at the level of the umbilicus, with a 4 cm pocket of contrast in the anterior abdominal wall Chest X-Ray 03/19/19 00:00 IMPRESSION: 1. Lines as described. 2. No pneumothorax or acute infiltrates. Assessment & Plan - Diagnosis (1) Left lower quadrant abdominal wall mass Is this a current diagnosis for this admission?: Yes (2) Enterocutaneous fistula Is this a current diagnosis for this admission?: Yes - Plan Summary Plan Summary: This is a 53-year-old female status post takedown of enterocutaneous fistula with resection of her leaking anastomosis and revision. The patient is doing well today. She was left intubated overnight. She is awake and alert this morning. Her ventilator mechanics are favorable. Plan for extubation. Her hemoglobin is stable from yesterday. Her drains are productive of serosanguineous fluid. Her heart rate is slightly elevated, but her urine output is good. Start TPN. Continue antibiotics. DVT prophylaxis with subcutaneous heparin. Teds/SCDs. Continue Jang catheter for strict urine output.
--- NOTE | 2019-03-21 11:38 | PDOC PROGRESS REPORT ---
Subjective Progress Note for:: 03/21/19 Reason For Visit: ABDOMINAL MASS Physical Exam Vital Signs: Temp Pulse Resp BP Pulse Ox 98.9 F 99 11 L 99/57 L 100 03/21/19 08:00 03/21/19 10:00 03/21/19 10:00 03/21/19 10:00 03/21/19 10:00 Intake & Output 03/20/19 03/21/19 03/22/19 06:59 06:59 06:59 Intake Total 3329 3408 Output Total 2305 1480 145 Balance 1024 1928 -145 Weight 78.4 kg 82.3 kg Results Laboratory Results: 03/21/19 04:04 03/21/19 04:04 03/21/19 03/21/19 04:04 04:04 WBC 8.9 RBC 3.02 L Hgb 7.1 L D Hct 22.3 L MCV 74 L MCH 23.7 L MCHC 32.0 RDW 14.7 H Plt Count 253 Seg Neutrophils % 78.0 Lymphocytes % 10.7 L Monocytes % 10.1 Eosinophils % 0.9 Basophils % 0.3 Absolute Neutrophils 7.0 Absolute Lymphocytes 1.0 Absolute Monocytes 0.9 Absolute Eosinophils 0.1 Absolute Basophils 0.0 Sodium 134.8 L Potassium 4.0 Chloride 101 Carbon Dioxide 28 Anion Gap 6 BUN 14 Creatinine 0.88 Est GFR ( Amer) > 60 Est GFR (Non-Af Amer) > 60 Glucose 233 H Calcium 7.9 L Phosphorus 3.3 Total Bilirubin 0.5 AST 8 L ALT 19 Alkaline Phosphatase 35 L Total Protein 4.4 L Albumin 1.9 L Prealbumin 6.3 L Impressions: Abdomen/Pelvis CT 03/19/19 00:00 IMPRESSION: Post right hemicolectomy. There is anastomotic breakdown with mesenteric inflammation at the ileocolic anastomosis, and oral contrast tracking through the left rectus sheath at the level of the umbilicus, with a 4 cm pocket of contrast in the anterior abdominal wall Chest X-Ray 03/19/19 00:00 IMPRESSION: 1. Lines as described. 2. No pneumothorax or acute infiltrates. 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 The patient is awake and alert this morning. She reports that her pain is controlled. She denies any flatus. Continue Jang for strict urine outputs. Acute blood loss anemia, likely due to surgery. Drop in hemoglobin today is likely accounted for by equilibration. Continue to monitor closely. Continue DVT prophylaxis with heparin and SCDs. Out of bed today. Aggressive pulmonary toilet. 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 Malnutrition: Continue TPN.
--- NOTE | 2019-03-21 12:24 | Operative Report ---
Nonrecallable Operative Report DATE OF SURGERY: 03/19/19 PREOPERATIVE DIAGNOSIS: Enterocutaneous fistula POSTOPERATIVE DIAGNOSIS: 1. Enterocutaneous fistula at the site of the ileocolic anastomosis. 2. Large amount of intra-abdominal inflammation at the anastomosis, no intra-abdominal abscess. OPERATION: 1. Exploratory laparotomy. 2. Takedown of left lower quadrant abdominal wall/anastomotic enterocutaneous fistula. 3. Resection of previous ileocolic anastomosis. 4. Mobilization of the splenic flexure. 5. Creation of new ileocolic anastomosis (distal transverse colon). 6. Placement of retention sutures in the abdominal wall. 7. Washout of abdominal wall abscess at the site of the enterocutaneous fistula. 8. Ultrasound-guided central venous puncture. 9. Left internal jugular vein central line placement. 10. Extensive lysis of adhesions. SURGEON: NATHAN ARELLANO 1ST CERTIFIED FRAUD EXAMINER: RANJITH BETANCUR ANESTHESIA: GA TISSUE REMOVED OR ALTERED: Resection of portion of the transverse colon and terminal ileum (previous ileocolic anastomosis) COMPLICATIONS: Enterocutaneous fistula from the anterior staple line of the ileocolic anastomosis to the anterior abdominal wall in the left lower quadrant. ESTIMATED BLOOD LOSS: 300 cc. PROCEDURE: Drains/implants: 15 Citizen Of [place] round Juan Manuel drain x2. Inferior Juan Manuel drain in the pelvis, superior Juan Manuel drain in the perianastomotic region. Procedure in detail: After informed consent was obtained, the patient was brought to the operating room and laid in the supine position. The area of the abdomen was prepped and draped in a normal sterile fashion. An incision was created within the bounds of the previous scar in the supraumbilical position. It was lengthened to below the umbilicus. Dissection was carried down to the abdominal wall using sharp dissection. The previous sutures were incised sharply, and the abdomen was entered sharply. This was done with great care so as not to injure the intra-abdominal contents. Once the abdomen was entered, there was found to be dense adherence of the ileocolic anastomosis to the abdominal wall, left of the midline. This was taken down using a mixture of sharp and blunt dissection. Extensive lysis of adhesions was then undertaken. This freed the ileocolic anastomosis from the remainder of the small intestines. Once the anastomosis was freed, the transverse colon was divided distal to the anastomosis using a ILIA-75 stapler. Next, the small bowel proximal to the anast omosis was also divided using the ILIA-75 stapler. The anastomosis was then freed from the mesentery using the LigaSure impact device. The old anastomosis was then passed off the field. Then it was noticed that the splenic flexure would need to be mobilized in order to create a new ileocolic anastomosis. The splenocolic ligament was divided using electrocautery. The white line of Toldt on the left was also divided using a mixture of blunt dissection and electrocautery. Once the splenic flexure was mobilized, the transverse colon was brought in apposition to the distal small bowel very easily. Attention was turned to creation of the anastomosis. The ileocolic anastomosis was then created. The terminal ileum and the distal transverse colon were brought in apposition one another. A posterior row of Lembert sutures were placed. Next, enterotomies were created in the small bowel and colon respectively. A stapled, side to side, antiperistaltic anastomosis was then created with the ILIA-75 stapler. Once this was completed, the resulting defect was closed using 3-0 PDS suture in Cristi fashion. Next an anterior line of Lembert sutures were placed to buttress and secure the maulik stomosis. Once this was completed, the anastomosis was tested and found to be free of any leakage of air or stool. Next, the abdomen was copiously irrigated and suctioned until the effluent was clear. Two round Juan Manuel drains, 15 Citizen [place] size, were placed into the abdominal cavity through separate stab incisions in the right lateral abdominal wall. The inferior drain was placed into the pelvis. The superior drain was placed in the perianastomotic region. The drains were sutured into place using 2-0 nylon suture. Next, attention was turned to closure of the abdominal wall. Retention sutures were placed through the abdominal wall, and a preperitoneal plane. The abdominal fascia was closed using 0 PDS suture in simple interrupted fashion. The abdominal skin was then loosely approximated with skin carlos, leaving room in between for packing with Xeroform gauze. The retention sutures were then tightened and tied, in order to reinforce the closure. After this was completed, attention was turned to washout of the left lower quadrant abscess cavity/enterocutaneous fistula tract. The previously opened left lower quadrant abscess was inspected. It was irrigated and suctioned copiously to remove any necrotic or infected tissue. After this was completed, it was packed with a 4 x 4 gauze. Xeroform gauze was packed into the midline wound. A dressing was placed, and this portion of the procedure was concluded. Due to the patient's significant illness, malnutrition, and need for TPN a central line was felt to be necessary. The patient was then placed into Trendelenburg position. The area of the left neck and chest were prepped and draped in a normal sterile fashion. The ultrasound was used to identify the left internal jugular vein. The left internal jugular vein was compressible with normal flow. Under direct ultrasonic guidance the vein was cannulated with the supplied access needle. Dark venous, nonpulsatile blood was returned in the syringe. The wire was inserted into the vein easily. The wire was confirmed to be within the lumen of the vein using the ultrasound device. The catheter was then slid over the wire using a modified Seldinger technique. The catheter was sutured to the skin. A sterile dressing with Biopatch was then placed. The procedure at this time was concluded. All sponge, instrument, and needle counts were correct x2. Condition: Fair. Dr. Ranjith Betancur was scrubbed and present the entirety the procedure. He assisted with all portions of the procedure including opening the abdomen, lysis of adhesions, resection of the anastomosis, creation of the new anastomosis, washout of the abdominal wall, closure of the fascia, closure of the skin, and placement of the central line.
[2019-03-21] MEDS ORDERED: PHENOL/SODIUM PHENOLATE 100 SPRAY/177 ML BOTTLE PO PRN (19:15)
[2019-03-21] MEDS ORDERED: PHENOL/SODIUM PHENOLATE 100 SPRAY/177 ML BOTTLE ONE (22:02)
[2019-03-22] MEDS: RINGERS SOLUTION,LACTATED 1,000 ML IV PRN (02:24)
[2019-03-22 05:03] LABS: ABSOLUTE EOSINOPHILS # (AUTO) 0.3 10^3/uL (0.0-0.6); ABSOLUTE MONOCYTES (AUTO) 0.8 10^3/uL (0.1-1.4); ABSOLUTE NEUT (AUTO) 8.1 10^3/uL (1.7-8.2); BASOPHILS % (AUTO) 0.5 % (0-2); EOSINOPHILS % (AUTO) 2.5 % (0-6); HEMATOCRIT 21.8 % (36.0-47.0); MEAN CORPUSCULAR HEMOGLOBIN 23.2 pg (27.0-33.4); MEAN CORPUSCULAR HGB CONC 31.7 g/dL (32.0-36.0); MEAN CORPUSCULAR VOLUME 73 fl (80-97); MONOCYTES % (AUTO) 8.1 % (3-13); PLATELET COUNT 295 10^3/uL (150-450); RED BLOOD COUNT 2.98 10^6/uL (3.72-5.28); RED CELL DISTRIBUTION WIDTH 14.7 % (11.5-14.0); SEGMENTED NEUTROPHILS % (AUTO) 78.9 % (42-78); TOTAL CELLS COUNTED % (AUTO) 100 %; WHITE BLOOD COUNT 10.2 10^3/uL (4.0-10.5)
[2019-03-22 05:07] LABS: HEMOGLOBIN 6.9 g/dL (12.0-15.5)
[2019-03-22 05:20] LABS: ALANINE AMINOTRANSFERASE 18 U/L (9-52); ALKALINE PHOSPHATASE 39 U/L (38-126); ANION GAP 8 (5-19); ASPARTATE AMINO TRANSFERASE 9 U/L (14-36); BILIRUBIN,DIRECT 0.2 mg/dL (0.0-0.4); BILIRUBIN,TOTAL 0.2 mg/dL (0.2-1.3); BLOOD UREA NITROGEN 10 mg/dL (7-20); CARBON DIOXIDE 27 mmol/L (22-30); CHLORIDE 101 mmol/L (98-107); GLUCOSE 394 mg/dL (75-110); PHOSPHORUS 2.8 mg/dL (2.5-4.5); POTASSIUM 4.4 mmol/L (3.6-5.0); SODIUM 135.9 mmol/L (137-145); TOTAL PROTEIN 4.6 g/dL (6.3-8.2)
[2019-03-22 05:27] LABS: PREALBUMIN 4.9 mg/dL (17.6-36.0)
[2019-03-22] MEDS: INSULIN REG, HUMAN 100 UNIT/ML 3 ML VIAL (PYX) SUBCUT PRN ×2 (05:50→22:40)
[2019-03-22] MEDS: KETOROLAC TROMETHAMINE INJ/PF 30 MG/1 ML SDV IV SCH ×3 (05:50→22:41)
[2019-03-22] MEDS: HEPARIN SOD (PORCINE) 5,000 UNIT/ML 1 ML SYRINGE SUBCUT SCH ×3 (05:51→22:41)
[2019-03-22] MEDS: METRONIDAZOLE 500 MG/NS RTU 500 MG/100 ML RTUPB IV SCH ×3 (05:51→22:38)
[2019-03-22] MEDS ORDERED: NORMAL SALINE 250 ML IV PRN ×2 (07:47)
[2019-03-22] MEDS ORDERED: FUROSEMIDE INJ/PF 40 MG/4 ML SDV IV PRN (07:49)
[2019-03-22] MEDS: MORPHINE SULFATE 60 MG/60 ML RTUINJ IV PRN (08:09)
--- NOTE | 2019-03-22 08:39 | PDOC PROGRESS REPORT ---
Subjective Progress Note for:: 03/22/19 Reason For Visit: LLQ ABD WALL MASS,ENTEROCUTANEOUS FISTULA, Physical Exam Vital Signs: Temp Pulse Resp BP Pulse Ox 98.5 F 102 H 17 110/58 L 100 03/22/19 08:00 03/22/19 08:00 03/22/19 08:00 03/22/19 08:00 03/22/19 08:00 Intake & Output 03/21/19 03/22/19 03/23/19 06:59 06:59 06:59 Intake Total 3408 3200 60 Output Total 1480 1685 Balance 1928 1515 60 Weight 82.3 kg 84.3 kg Results Laboratory Results: 03/22/19 04:53 03/22/19 04:53 03/22/19 03/22/19 04:53 04:53 WBC 10.2 RBC 2.98 L Hgb 6.9 L Hct 21.8 L MCV 73 L MCH 23.2 L MCHC 31.7 L RDW 14.7 H Plt Count 295 Seg Neutrophils % 78.9 H Lymphocytes % 10.0 L Monocytes % 8.1 Eosinophils % 2.5 Basophils % 0.5 Absolute Neutrophils 8.1 Absolute Lymphocytes 1.0 Absolute Monocytes 0.8 Absolute Eosinophils 0.3 Absolute Basophils 0.0 Sodium 135.9 L Potassium 4.4 Chloride 101 Carbon Dioxide 27 Anion Gap 8 BUN 10 Creatinine 0.61 Est GFR ( Amer) > 60 Est GFR (Non-Af Amer) > 60 Glucose 394 H Calcium 8.0 L Phosphorus 2.8 Total Bilirubin 0.2 AST 9 L ALT 18 Alkaline Phosphatase 39 Total Protein 4.6 L Albumin 2.0 L Prealbumin 4.9 L Impressions: Abdomen/Pelvis CT 03/19/19 00:00 IMPRESSION: Post right hemicolectomy. There is anastomotic breakdown with mesenteric inflammation at the ileocolic anastomosis, and oral contrast tracking through the left rectus sheath at the level of the umbilicus, with a 4 cm pocket of contrast in the anterior abdominal wall Chest X-Ray 03/19/19 00:00 IMPRESSION: 1. Lines as described. 2. No pneumothorax or acute infiltrates. 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 The patient is awake and alert this morning. She reports that her pain is controlled. She reports a small amount of flatus. Discontinue Jang after Lasix today. Acute blood loss anemia, likely due to surgery. Hemoglobin lower again today. Plan for 1 unit PRBC transfusion with posttransfusion Lasix administration. Continue DVT prophylaxis with heparin and SCDs. Out of bed today. Aggressive pulmonary toilet. 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 Malnutrition: Continue TPN. Hyperglycemia: Restart Lantus, monitor closely. Patient may require an insulin drip if blood sugars persistently above 150.
[2019-03-22] MEDS ORDERED: INSULIN GLARGINE,HUM.REC.ANLOG 1,000 UNIT/10 ML VIAL SUBCUT SCH (08:45)
[2019-03-22] MEDS: CIPROFLOXACIN 400 MG/D5W RTU 400 MG/200 ML RTUPB IV SCH ×2 (09:12→22:40)
[2019-03-22] MEDS: INSULIN GLARGINE,HUM.REC.ANLOG 1,000 UNIT/10 ML VIAL SUBCUT SCH (10:35)
[2019-03-22] MEDS ORDERED: HEPARIN SOD (PORCINE) 5,000 UNIT/ML 1 ML SYRINGE ONE (22:13)
[2019-03-23] MEDS: METRONIDAZOLE 500 MG/NS RTU 500 MG/100 ML RTUPB IV SCH ×3 (05:01→21:35)
[2019-03-23] MEDS: HEPARIN SOD (PORCINE) 5,000 UNIT/ML 1 ML SYRINGE SUBCUT SCH ×3 (05:02→21:37)
[2019-03-23] MEDS: KETOROLAC TROMETHAMINE INJ/PF 30 MG/1 ML SDV IV SCH ×3 (05:02→21:36)
[2019-03-23 05:25] LABS: HEMATOCRIT 25.6 % (36.0-47.0); HEMOGLOBIN 7.4 g/dL (12.0-15.5); MEAN CORPUSCULAR HEMOGLOBIN 24.5 pg (27.0-33.4); MEAN CORPUSCULAR HGB CONC 28.8 g/dL (32.0-36.0); PLATELET COUNT 288 10^3/uL (150-450); RED BLOOD COUNT 3.01 10^6/uL (3.72-5.28); RED CELL DISTRIBUTION WIDTH 15.8 % (11.5-14.0); WHITE BLOOD COUNT 8.9 10^3/uL (4.0-10.5)
[2019-03-23 05:26] LABS: MEAN CORPUSCULAR VOLUME 85 fl (80-97)
[2019-03-23 05:34] LABS: INTERNATIONAL RATION (INR) 1.42; PROTHROMBIN TIME 18.1 SEC (11.4-15.4)
[2019-03-23 06:51] LABS: ALANINE AMINOTRANSFERASE 20 U/L (9-52); ALBUMIN 1.7 g/dL (3.5-5.0); ALKALINE PHOSPHATASE 21 U/L (38-126); ANION GAP 10 (5-19); ASPARTATE AMINO TRANSFERASE 7 U/L (14-36); BILIRUBIN,DIRECT 0.4 mg/dL (0.0-0.4); BILIRUBIN,TOTAL 0.4 mg/dL (0.2-1.3); BLOOD UREA NITROGEN 7 mg/dL (7-20); CALCIUM 7.4 mg/dL (8.4-10.2); CARBON DIOXIDE 23 mmol/L (22-30); CHLORIDE 91 mmol/L (98-107); PHOSPHORUS 6.7 mg/dL (2.5-4.5); SODIUM 123.8 mmol/L (137-145); TOTAL PROTEIN 3.6 g/dL (6.3-8.2)
[2019-03-23 06:59] LABS: PREALBUMIN 4.2 mg/dL (17.6-36.0)
[2019-03-23 07:21] LABS: GLUCOSE 2503 mg/dL (75-110); POTASSIUM 8.2 mmol/L (3.6-5.0)
[2019-03-23 07:47] LABS: HEMATOCRIT 26.7 % (36.0-47.0); HEMOGLOBIN 8.6 g/dL (12.0-15.5); MEAN CORPUSCULAR HEMOGLOBIN 23.9 pg (27.0-33.4); MEAN CORPUSCULAR HGB CONC 32.4 g/dL (32.0-36.0); PLATELET COUNT 340 10^3/uL (150-450); RED BLOOD COUNT 3.61 10^6/uL (3.72-5.28); RED CELL DISTRIBUTION WIDTH 15.4 % (11.5-14.0); WHITE BLOOD COUNT 10.4 10^3/uL (4.0-10.5)
[2019-03-23 07:49] LABS: MEAN CORPUSCULAR VOLUME 74 fl (80-97)
[2019-03-23 08:08] LABS: ALANINE AMINOTRANSFERASE 17 U/L (9-52); ALBUMIN 2.2 g/dL (3.5-5.0); ALKALINE PHOSPHATASE 43 U/L (38-126); ANION GAP 7 (5-19); ASPARTATE AMINO TRANSFERASE 8 U/L (14-36); BILIRUBIN,DIRECT 0.3 mg/dL (0.0-0.4); BILIRUBIN,TOTAL 0.3 mg/dL (0.2-1.3); BLOOD UREA NITROGEN 9 mg/dL (7-20); CALCIUM 8.3 mg/dL (8.4-10.2); CARBON DIOXIDE 30 mmol/L (22-30); CHLORIDE 102 mmol/L (98-107); SODIUM 138.6 mmol/L (137-145); TOTAL PROTEIN 5.1 g/dL (6.3-8.2)
[2019-03-23 08:21] LABS: GLUCOSE 260 mg/dL (75-110)
[2019-03-23] MEDS ORDERED: DEXTROSE 40% GEL 15 GM TUBE X 2 PO PRN (08:30)
[2019-03-23] MEDS ORDERED: DEXTROSE 40% GEL 15 GM TUBE PO PRN (08:30)
[2019-03-23] MEDS ORDERED: DEXTROSE 50%-WATER SYRINGE 25 GM/50 ML DOSE IV PRN (08:30)
[2019-03-23] MEDS ORDERED: GLUCAGON,HUMAN RECOMB 1 MG INJ IM PRN (08:30)
[2019-03-23] MEDS ORDERED: DEXTROSE 50%-WATER SYRINGE 12.5 GM/25 ML DOSE IV PRN (08:30)
[2019-03-23] MEDS: INSULIN, REGULAR 100 UNIT/100 ML NORMAL SALINE IV PRN ×4 (09:00→20:33)
--- NOTE | 2019-03-23 09:33 | PDOC PROGRESS REPORT ---
Subjective Progress Note for:: 03/23/19 Reason For Visit: LLQ ABD WALL MASS,ENTEROCUTANEOUS FISTULA, Physical Exam Vital Signs: Temp Pulse Resp BP Pulse Ox 99.5 F 100 15 139/74 H 90 L 03/23/19 08:00 03/23/19 08:00 03/23/19 08:00 03/23/19 08:00 03/23/19 08:00 Intake & Output 03/22/19 03/23/19 03/24/19 06:59 06:59 06:59 Intake Total 3200 1760 Output Total 1685 2965 0 Balance 1515 -1205 0 Weight 84.3 kg 83.6 kg Results Laboratory Results: 03/23/19 07:37 03/23/19 07:37 03/22/19 03/23/19 03/23/19 08:50 05:04 05:04 WBC 8.9 RBC 3.01 L Hgb 7.4 L Hct 25.6 L MCV 85 D MCH 24.5 L MCHC 28.8 L RDW 15.8 H Plt Count 288 Sodium Cancelled Potassium Cancelled Chloride Cancelled Carbon Dioxide Cancelled Anion Gap Cancelled BUN Cancelled Creatinine Cancelled Est GFR ( Amer) Cancelled Est GFR (Non-Af Amer) Cancelled Glucose Cancelled Calcium Cancelled Phosphorus Cancelled Magnesium Cancelled Total Bilirubin Cancelled AST Cancelled ALT Cancelled Alkaline Phosphatase Cancelled Total Protein Cancelled Albumin Cancelled Prealbumin Cancelled Blood Type A POSITIVE Antibody Screen NEGATIVE 03/23/19 03/23/19 03/23/19 06:21 07:37 07:37 WBC 10.4 RBC 3.61 L Hgb 8.6 L Hct 26.7 L MCV 74 L D MCH 23.9 L MCHC 32.4 RDW 15.4 H Plt Count 340 Sodium 123.8 L 138.6 Potassium 8.2 H* 4.0 D Chloride 91 L 102 Carbon Dioxide 23 30 Anion Gap 10 7 BUN 7 9 Creatinine 0.80 0.46 L Est GFR ( Amer) > 60 > 60 Est GFR (Non-Af Amer) > 60 > 60 Glucose 2503 H* 260 H Calcium 7.4 L 8.3 L Phosphorus 6.7 H Magnesium 2.7 H Total Bilirubin 0.4 0.3 AST 7 L 8 L ALT 20 17 Alkaline Phosphatase 21 L 43 Total Protein 3.6 L 5.1 L Albumin 1.7 L 2.2 L Prealbumin 4.2 L Blood Type Antibody Screen Impressions: Abdomen/Pelvis CT 03/19/19 00:00 IMPRESSION: Post right hemicolectomy. There is anastomotic breakdown with mesenteric inflammation at the ileocolic anastomosis, and oral contrast tracking through the left rectus sheath at the level of the umbilicus, with a 4 cm pocket of contrast in the anterior abdominal wall Chest X-Ray 03/19/19 00:00 IMPRESSION: 1. Lines as described. 2. No pneumothorax or acute infiltrates. 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 The patient is awake and alert this morning. She reports that her pain is controlled. She reports a small amount of flatus. She reports "coughing up phlem". Jang discontinued, urinating normally. Acute blood loss anemia, likely due to surgery. Status post PRBC transfusion. Hemoglobin stable. Continue DVT prophylaxis with heparin and SCDs. Out of bed today. Poor effort on incentive spirometry. Order Acapella valve. Order nebulizer treatments every 4 hours. Continue with aggressive pulmonary toilet. 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 Malnutrition: Continue TPN. Hyperglycemia: Continue Lantus. Blood sugars have persisted above 150. Discussion held with pharmacy regarding the amount of insulin in the TPN. They are unable to change this at present. Start insulin drip, and wean off when blood sugars less than 150. Lab work very abnormal this morning. I believe this is a lab draw error. Repeat labs are essentially normal.
[2019-03-23] MEDS ORDERED: ALBUTEROL SULFATE 0.083% NEB 2.5 MG/3 ML AMPUL NEB PRN (09:34)
[2019-03-23] MEDS: CIPROFLOXACIN 400 MG/D5W RTU 400 MG/200 ML RTUPB IV SCH ×2 (10:39→21:36)
[2019-03-23] MEDS: AMINO ACIDS 5 %/DEXTROSE 20 % 1,000 ML IV PRN (10:39)
[2019-03-23] MEDS: FAT EMULSIONS 250 ML IV SCH (10:40)
[2019-03-23] MEDS: INSULIN GLARGINE,HUM.REC.ANLOG 1,000 UNIT/10 ML VIAL SUBCUT SCH (10:46)
[2019-03-23] MEDS: MORPHINE SULFATE 60 MG/60 ML RTUINJ IV PRN (13:05)
[2019-03-24] MEDS: AMINO ACIDS 5 %/DEXTROSE 20 % 1,000 ML IV PRN ×2 (04:26→21:00)
[2019-03-24] MEDS: METRONIDAZOLE 500 MG/NS RTU 500 MG/100 ML RTUPB IV SCH ×3 (05:26→21:06)
[2019-03-24] MEDS: HEPARIN SOD (PORCINE) 5,000 UNIT/ML 1 ML SYRINGE SUBCUT SCH ×3 (05:27→21:05)
[2019-03-24] MEDS: KETOROLAC TROMETHAMINE INJ/PF 30 MG/1 ML SDV IV SCH ×3 (05:27→21:05)
[2019-03-24 06:44] LABS: ABSOLUTE BASOPHILS # (AUTO) 0.1 10^3/uL (0.0-0.2); ABSOLUTE EOSINOPHILS # (AUTO) 0.5 10^3/uL (0.0-0.6); ABSOLUTE MONOCYTES (AUTO) 1.7 10^3/uL (0.1-1.4); ABSOLUTE NEUT (AUTO) 8.8 10^3/uL (1.7-8.2); BASOPHILS % (AUTO) 0.4 % (0-2); EOSINOPHILS % (AUTO) 3.5 % (0-6); HEMATOCRIT 26.9 % (36.0-47.0); HEMOGLOBIN 8.8 g/dL (12.0-15.5); LYMPHOCYTES % (AUTO) 15.6 % (13-45); MEAN CORPUSCULAR HGB CONC 32.6 g/dL (32.0-36.0); MEAN CORPUSCULAR VOLUME 74 fl (80-97); MONOCYTES % (AUTO) 12.7 % (3-13); PLATELET COUNT 382 10^3/uL (150-450); RED BLOOD COUNT 3.66 10^6/uL (3.72-5.28); RED CELL DISTRIBUTION WIDTH 15.2 % (11.5-14.0); SEGMENTED NEUTROPHILS % (AUTO) 67.8 % (42-78); TOTAL CELLS COUNTED % (AUTO) 100 %; WHITE BLOOD COUNT 13.1 10^3/uL (4.0-10.5)
[2019-03-24 06:52] LABS: ALANINE AMINOTRANSFERASE 11 U/L (9-52); ALBUMIN 2.7 g/dL (3.5-5.0); ALKALINE PHOSPHATASE 47 U/L (38-126); ANION GAP 6 (5-19); ASPARTATE AMINO TRANSFERASE 10 U/L (14-36); BILIRUBIN,DIRECT 0.2 mg/dL (0.0-0.4); BILIRUBIN,TOTAL 0.3 mg/dL (0.2-1.3); BLOOD UREA NITROGEN 10 mg/dL (7-20); CALCIUM 8.7 mg/dL (8.4-10.2); CARBON DIOXIDE 31 mmol/L (22-30); CHLORIDE 102 mmol/L (98-107); GLUCOSE 84 mg/dL (75-110); POTASSIUM 3.7 mmol/L (3.6-5.0); TOTAL PROTEIN 6.1 g/dL (6.3-8.2)
[2019-03-24] MEDS: ONDANSETRON HCL INJ/PF 4 MG/2 ML SDV IV PRN (08:50)
--- NOTE | 2019-03-24 08:50 | RADIOLOGY REPORT (SQ) ---
EXAM DESCRIPTION: CHEST SINGLE VIEW COMPLETED DATE/TIME: 03/24/2019 6:18 am REASON FOR STUDY: productive cough COMPARISON: AP chest 03/19/2019, 02/07/2019 EXAM PARAMETERS: NUMBER OF VIEWS: One view. TECHNIQUE: Single frontal radiographic view of the chest acquired. RADIATION DOSE: NA LIMITATIONS: None. FINDINGS: LUNGS AND PLEURA: Low lung volumes. Trace bilateral pleural effusions are present with le ft retrocardiac consolidation atelectasis versus pneumonia. No pneumothorax. MEDIASTINUM AND HILAR STRUCTURES: No masses. Contour normal. HEART AND VASCULAR STRUCTURES: Heart normal in size. Normal vasculature. BONES: Mild convex leftward upper thoracic curvature with developmental right upper rib abnormalities HARDWARE: Left jugular central line tip superior vena cava. Nasogastric tube tip and side port in th e stomach OTHER: No other significant finding. IMPRESSION: Postextubation Low lung volumes with bibasilar consolidation and trace pleural fluid TECHNICAL DOCUMENTATION: JOB ID: [id number] [facility]- All Rights Reserved Reading location - IP/workstation name: [email or web address]
[2019-03-24] MEDS: CIPROFLOXACIN 400 MG/D5W RTU 400 MG/200 ML RTUPB IV SCH ×2 (13:50→22:21)
[2019-03-24] MEDS: INSULIN GLARGINE,HUM.REC.ANLOG 1,000 UNIT/10 ML VIAL SUBCUT SCH (13:50)
[2019-03-24] MEDS ORDERED: INSULIN LISPRO 100 UNIT/ML 3 ML VIAL SUBCUT ONE (15:30)
[2019-03-24] MEDS: MORPHINE SULFATE 60 MG/60 ML RTUINJ IV PRN (17:43)
--- NOTE | 2019-03-24 18:14 | PDOC PROGRESS REPORT ---
Subjective Progress Note for:: 03/24/19 Reason For Visit: LLQ ABD WALL MASS,ENTEROCUTANEOUS FISTULA, Physical Exam Vital Signs: Temp Pulse Resp BP Pulse Ox 100.6 F H 108 H 20 166/83 H 97 03/24/19 16:00 03/24/19 16:00 03/24/19 16:00 03/24/19 16:00 03/24/19 16:00 Intake & Output 03/23/19 03/24/19 03/25/19 06:59 06:59 06:59 Intake Total 1760 2163 407 Output Total 2965 1300 744 Balance -1205 863 -337 Weight 83.6 kg 86.8 kg Results Laboratory Results: 03/24/19 06:21 03/24/19 06:21 03/24/19 03/24/19 06:21 06:21 WBC 13.1 H RBC 3.66 L Hgb 8.8 L Hct 26.9 L MCV 74 L MCH 24.0 L MCHC 32.6 RDW 15.2 H Plt Count 382 Seg Neutrophils % 67.8 Lymphocytes % 15.6 Monocytes % 12.7 Eosinophils % 3.5 Basophils % 0.4 Absolute Neutrophils 8.8 H Absolute Lymphocytes 2.0 Absolute Monocytes 1.7 H Absolute Eosinophils 0.5 Absolute Basophils 0.1 Sodium 139.0 Potassium 3.7 Chloride 102 Carbon Dioxide 31 H Anion Gap 6 BUN 10 Creatinine 0.53 Est GFR ( Amer) > 60 Est GFR (Non-Af Amer) > 60 Glucose 84 Calcium 8.7 Total Bilirubin 0.3 AST 10 L ALT 11 Alkaline Phosphatase 47 Total Protein 6.1 L Albumin 2.7 L Impressions: Abdomen/Pelvis CT 03/19/19 00:00 IMPRESSION: Post right hemicolectomy. There is anastomotic breakdown with mesenteric inflammation at the ileocolic anastomosis, and oral contrast tracking through the left rectus sheath at the level of the umbilicus, with a 4 cm pocket of contrast in the anterior abdominal wall Chest X-Ray 03/24/19 06:00 IMPRESSION: Postextubation Low lung volumes with bibasilar consolidation and trace pleural fluid Assessment & Plan - Diagnosis (1) Left lower quadrant abdominal wall mass Is this a current diagnosis for this admission?: Yes (2) Enterocutaneous fistula Is this a current diagnosis for this admission?: Yes - Plan Summary Plan Summary: This is a 53-year-old female status post takedown of enterocutaneous fistula and resection of her anastomosis with revision. The patient is awake and alert today. She reports that her pain is controlled. She reports flatus and a small bowel movement today. Jang discontinued, urinating normally. Acute blood loss anemia, likely due to surgery. Status post PRBC transfusion. Hemoglobin stable. Continue DVT prophylaxis with heparin and SCDs. Out of bed today. Still with poor effort on incentive spirometry and low lung volumes on CXR. Cont Acapella valve. Cont nebulizer treatments every 4 hours. Continue with aggressive pulmonary toilet. 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 Malnutrition: Continue TPN. Hyperglycemia: Continue Lantus. Insulin drip has been very effective. The insulin gtt is now weaned off. Cont with sliding scale for now. D/c NG tube today.
[2019-03-24] MEDS: INSULIN LISPRO 100 UNIT/ML 3 ML VIAL SUBCUT SCH ×2 (18:27→23:52)
[2019-03-25] MEDS: METRONIDAZOLE 500 MG/NS RTU 500 MG/100 ML RTUPB IV SCH ×3 (05:17→22:03)
[2019-03-25] MEDS: HEPARIN SOD (PORCINE) 5,000 UNIT/ML 1 ML SYRINGE SUBCUT SCH ×3 (05:17→20:59)
[2019-03-25] MEDS: KETOROLAC TROMETHAMINE INJ/PF 30 MG/1 ML SDV IV SCH (05:18)
[2019-03-25] MEDS: INSULIN LISPRO 100 UNIT/ML 3 ML VIAL SUBCUT SCH (05:34)
[2019-03-25 09:15] LABS: ABSOLUTE EOSINOPHILS # (AUTO) 0.5 10^3/uL (0.0-0.6); ABSOLUTE LYMPHOCYTES (AUTO) 1.5 10^3/uL (0.5-4.7); ABSOLUTE MONOCYTES (AUTO) 1.3 10^3/uL (0.1-1.4); ABSOLUTE NEUT (AUTO) 9.3 10^3/uL (1.7-8.2); BASOPHILS % (AUTO) 0.3 % (0-2); HEMOGLOBIN 8.5 g/dL (12.0-15.5); LYMPHOCYTES % (AUTO) 12.1 % (13-45); MEAN CORPUSCULAR HEMOGLOBIN 24.2 pg (27.0-33.4); MEAN CORPUSCULAR HGB CONC 32.8 g/dL (32.0-36.0); MEAN CORPUSCULAR VOLUME 74 fl (80-97); MONOCYTES % (AUTO) 10.3 % (3-13); PLATELET COUNT 413 10^3/uL (150-450); RED BLOOD COUNT 3.52 10^6/uL (3.72-5.28); RED CELL DISTRIBUTION WIDTH 15.3 % (11.5-14.0); SEGMENTED NEUTROPHILS % (AUTO) 73.3 % (42-78); TOTAL CELLS COUNTED % (AUTO) 100 %; WHITE BLOOD COUNT 12.6 10^3/uL (4.0-10.5)
[2019-03-25 09:37] LABS: ALANINE AMINOTRANSFERASE 20 U/L (9-52); ALBUMIN 2.4 g/dL (3.5-5.0); ALKALINE PHOSPHATASE 51 U/L (38-126); ANION GAP 8 (5-19); ASPARTATE AMINO TRANSFERASE 10 U/L (14-36); BILIRUBIN,DIRECT 0.2 mg/dL (0.0-0.4); BILIRUBIN,TOTAL 0.2 mg/dL (0.2-1.3); BLOOD UREA NITROGEN 11 mg/dL (7-20); CALCIUM 8.3 mg/dL (8.4-10.2); CARBON DIOXIDE 29 mmol/L (22-30); CHLORIDE 100 mmol/L (98-107); GLUCOSE 204 mg/dL (75-110); SODIUM 137.4 mmol/L (137-145); TOTAL PROTEIN 5.7 g/dL (6.3-8.2)
[2019-03-25] MEDS: CIPROFLOXACIN 400 MG/D5W RTU 400 MG/200 ML RTUPB IV SCH ×2 (10:02→20:59)
[2019-03-25] MEDS: INSULIN, REGULAR 100 UNIT/100 ML NORMAL SALINE IV PRN ×2 (10:08)
[2019-03-25] MEDS: INSULIN GLARGINE,HUM.REC.ANLOG 1,000 UNIT/10 ML VIAL SUBCUT SCH (10:08)
--- NOTE | 2019-03-25 14:04 | PDOC PROGRESS REPORT ---
Subjective Progress Note for:: 03/25/19 Reason For Visit: LLQ ABD WALL MASS,ENTEROCUTANEOUS FISTULA, Physical Exam Vital Signs: Temp Pulse Resp BP Pulse Ox 98.4 F 102 H 21 H 142/82 H 98 03/25/19 12:00 03/25/19 12:00 03/25/19 12:00 03/25/19 12:00 03/25/19 12:00 Intake & Output 03/24/19 03/25/19 03/26/19 06:59 06:59 06:59 Intake Total 2163 2101 11 Output Total 1300 2684 0 Balance 863 -583 11 Weight 86.8 kg 83.6 kg Results Laboratory Results: 03/25/19 09:03 03/25/19 09:03 03/25/19 03/25/19 09:03 09:03 WBC 12.6 H RBC 3.52 L Hgb 8.5 L Hct 26.0 L MCV 74 L MCH 24.2 L MCHC 32.8 RDW 15.3 H Plt Count 413 Seg Neutrophils % 73.3 Lymphocytes % 12.1 L Monocytes % 10.3 Eosinophils % 4.0 Basophils % 0.3 Absolute Neutrophils 9.3 H Absolute Lymphocytes 1.5 Absolute Monocytes 1.3 Absolute Eosinophils 0.5 Absolute Basophils 0.0 Sodium 137.4 Potassium 4.0 Chloride 100 Carbon Dioxide 29 Anion Gap 8 BUN 11 Creatinine 0.52 Est GFR ( Amer) > 60 Est GFR (Non-Af Amer) > 60 Glucose 204 H Calcium 8.3 L Total Bilirubin 0.2 AST 10 L ALT 20 Alkaline Phosphatase 51 Total Protein 5.7 L Albumin 2.4 L Impressions: Abdomen/Pelvis CT 03/19/19 00:00 IMPRESSION: Post right hemicolectomy. There is anastomotic breakdown with mesenteric inflammation at the ileocolic anastomosis, and oral contrast tracking through the left rectus sheath at the level of the umbilicus, with a 4 cm pocket of contrast in the anterior abdominal wall Chest X-Ray 03/24/19 06:00 IMPRESSION: Postextubation Low lung volumes with bibasilar consolidation and trace pleural fluid Assessment & Plan - Diagnosis (1) Left lower quadrant abdominal wall mass Is this a current diagnosis for this admission?: Yes (2) Enterocutaneous fistula Is this a current diagnosis for this admission?: Yes - Plan Summary Plan Summary: This is a 53-year-old female status post takedown of enterocutaneous fistula and resection of her anastomosis with revision. The patient is awake and alert today. She reports that her pain is controlled. She reports flatus and several liquid bowel movements today. Jang discontinued, urinating normally. Acute blood loss anemia, likely due to surgery. Status post PRBC transfusion. Hemoglobin stable. Continue DVT prophylaxis with heparin and SCDs. Out of bed. Effort improving on incentive spirometry. Cont Acapella valve. Cont nebulizer treatments every 4 hours. Continue with aggressive pulmonary toilet. 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 Malnutrition: Continue TPN. Hyperglycemia: Continue Lantus. Insulin drip restarted. NG D/C'd --> no nausea or vomiting. LLQ wound and upper midline wound continue to have seropurulent drainage. Increase dressing changes to BID.
[2019-03-25] MEDS: AMINO ACIDS 5 %/DEXTROSE 20 % 1,000 ML IV PRN (15:11)
[2019-03-25] MEDS: CELECOXIB 100 MG CAPSULE PO SCH ×2 (16:04→20:59)
[2019-03-25] MEDS: MORPHINE SULFATE 60 MG/60 ML RTUINJ IV PRN (19:06)
[2019-03-26] MEDS: INSULIN, REGULAR 100 UNIT/100 ML NORMAL SALINE IV PRN ×4 (01:01→17:43)
[2019-03-26] MEDS: HEPARIN SOD (PORCINE) 5,000 UNIT/ML 1 ML SYRINGE SUBCUT SCH ×3 (05:50→21:19)
[2019-03-26] MEDS: METRONIDAZOLE 500 MG/NS RTU 500 MG/100 ML RTUPB IV SCH (05:50)
[2019-03-26 06:00] LABS: ABSOLUTE BASOPHILS # (AUTO) 0.1 10^3/uL (0.0-0.2); ABSOLUTE EOSINOPHILS # (AUTO) 0.5 10^3/uL (0.0-0.6); ABSOLUTE LYMPHOCYTES (AUTO) 1.6 10^3/uL (0.5-4.7); ABSOLUTE MONOCYTES (AUTO) 1.3 10^3/uL (0.1-1.4); ABSOLUTE NEUT (AUTO) 8.8 10^3/uL (1.7-8.2); BASOPHILS % (AUTO) 0.5 % (0-2); EOSINOPHILS % (AUTO) 3.8 % (0-6); HEMATOCRIT 26.5 % (36.0-47.0); HEMOGLOBIN 8.6 g/dL (12.0-15.5); LYMPHOCYTES % (AUTO) 13.4 % (13-45); MEAN CORPUSCULAR HEMOGLOBIN 23.9 pg (27.0-33.4); MEAN CORPUSCULAR HGB CONC 32.3 g/dL (32.0-36.0); MEAN CORPUSCULAR VOLUME 74 fl (80-97); MONOCYTES % (AUTO) 10.8 % (3-13); PLATELET COUNT 421 10^3/uL (150-450); RED BLOOD COUNT 3.59 10^6/uL (3.72-5.28); SEGMENTED NEUTROPHILS % (AUTO) 71.5 % (42-78); TOTAL CELLS COUNTED % (AUTO) 100 %; WHITE BLOOD COUNT 12.3 10^3/uL (4.0-10.5)
[2019-03-26 06:15] LABS: ALANINE AMINOTRANSFERASE 13 U/L (9-52); ALBUMIN 2.3 g/dL (3.5-5.0); ALKALINE PHOSPHATASE 52 U/L (38-126); ANION GAP 8 (5-19); ASPARTATE AMINO TRANSFERASE 10 U/L (14-36); BILIRUBIN,DIRECT 0.2 mg/dL (0.0-0.4); BILIRUBIN,TOTAL 0.2 mg/dL (0.2-1.3); BLOOD UREA NITROGEN 11 mg/dL (7-20); CALCIUM 8.7 mg/dL (8.4-10.2); CARBON DIOXIDE 28 mmol/L (22-30); CHLORIDE 102 mmol/L (98-107); GLUCOSE 108 mg/dL (75-110); PHOSPHORUS 3.8 mg/dL (2.5-4.5); POTASSIUM 3.8 mmol/L (3.6-5.0); SODIUM 137.6 mmol/L (137-145); TOTAL PROTEIN 5.6 g/dL (6.3-8.2)
[2019-03-26 06:23] LABS: PREALBUMIN 12.1 mg/dL (17.6-36.0)
[2019-03-26] MEDS: AMINO ACIDS 5 %/DEXTROSE 20 % 1,000 ML IV PRN ×2 (06:59→22:07)
[2019-03-26] MEDS: CELECOXIB 100 MG CAPSULE PO SCH ×2 (09:26→21:19)
[2019-03-26] MEDS: CIPROFLOXACIN 400 MG/D5W RTU 400 MG/200 ML RTUPB IV SCH (09:26)
[2019-03-26] MEDS: INSULIN GLARGINE,HUM.REC.ANLOG 1,000 UNIT/10 ML VIAL SUBCUT SCH (09:27)
[2019-03-26] MEDS: FAT EMULSIONS 250 ML IV SCH (09:28)
[2019-03-26] MEDS ORDERED: CIPROFLOXACIN 400 MG/D5W RTU 400 MG/200 ML RTUPB IV ONE (23:00)
[2019-03-26] MEDS ORDERED: METRONIDAZOLE 500 MG/NS RTU 500 MG/100 ML RTUPB IV ONE (23:30)
[2019-03-27] MEDS: METRONIDAZOLE 500 MG/NS RTU 500 MG/100 ML RTUPB IV SCH ×3 (05:30→21:38)
[2019-03-27] MEDS: HEPARIN SOD (PORCINE) 5,000 UNIT/ML 1 ML SYRINGE SUBCUT SCH ×3 (05:30→21:40)
[2019-03-27 06:18] LABS: ALANINE AMINOTRANSFERASE 15 U/L (9-52); ALBUMIN 2.4 g/dL (3.5-5.0); ALKALINE PHOSPHATASE 51 U/L (38-126); ANION GAP 9 (5-19); ASPARTATE AMINO TRANSFERASE 10 U/L (14-36); BILIRUBIN,DIRECT 0.2 mg/dL (0.0-0.4); BILIRUBIN,TOTAL 0.2 mg/dL (0.2-1.3); BLOOD UREA NITROGEN 11 mg/dL (7-20); CALCIUM 8.7 mg/dL (8.4-10.2); CARBON DIOXIDE 28 mmol/L (22-30); CHLORIDE 101 mmol/L (98-107); GLUCOSE 158 mg/dL (75-110); POTASSIUM 4.3 mmol/L (3.6-5.0); SODIUM 138.1 mmol/L (137-145)
[2019-03-27] MEDS: ONDANSETRON HCL INJ/PF 4 MG/2 ML SDV IV PRN (07:46)
[2019-03-27] MEDS: INSULIN GLARGINE,HUM.REC.ANLOG 1,000 UNIT/10 ML VIAL SUBCUT SCH (09:39)
[2019-03-27] MEDS: CIPROFLOXACIN 400 MG/D5W RTU 400 MG/200 ML RTUPB IV SCH ×2 (09:39→22:38)
[2019-03-27] MEDS: CELECOXIB 100 MG CAPSULE PO SCH ×2 (09:40→21:38)
[2019-03-27] MEDS: AMINO ACIDS 5 %/DEXTROSE 20 % 1,000 ML IV PRN (12:15)
--- NOTE | 2019-03-27 16:31 | PDOC PROGRESS REPORT ---
Subjective Progress Note for:: 03/26/19 Reason For Visit: LLQ ABD WALL MASS,ENTEROCUTANEOUS FISTULA, Physical Exam Vital Signs: Temp Pulse Resp BP Pulse Ox 98.5 F 106 H 19 151/85 H 99 03/26/19 12:00 03/26/19 19:42 03/26/19 19:26 03/26/19 17:58 03/26/19 19:26 Intake & Output 03/25/19 03/26/19 03/27/19 06:59 06:59 06:59 Intake Total 2101 2705 978 Output Total 2681 8023 9050 Balance -198 -44 -4485 Weight 83.6 kg 84.3 kg Results Laboratory Results: 03/26/19 05:35 03/26/19 05:35 03/26/19 03/26/19 05:35 05:35 WBC 12.3 H RBC 3.59 L Hgb 8.6 L Hct 26.5 L MCV 74 L MCH 23.9 L MCHC 32.3 RDW 16.0 H Plt Count 421 Seg Neutrophils % 71.5 Lymphocytes % 13.4 Monocytes % 10.8 Eosinophils % 3.8 Basophils % 0.5 Absolute Neutrophils 8.8 H Absolute Lymphocytes 1.6 Absolute Monocytes 1.3 Absolute Eosinophils 0.5 Absolute Basophils 0.1 Sodium 137.6 Potassium 3.8 Chloride 102 Carbon Dioxide 28 Anion Gap 8 BUN 11 Creatinine 0.55 Est GFR ( Amer) > 60 Est GFR (Non-Af Amer) > 60 Glucose 108 Calcium 8.7 Phosphorus 3.8 Total Bilirubin 0.2 AST 10 L ALT 13 Alkaline Phosphatase 52 Total Protein 5.6 L Albumin 2.3 L Prealbumin 12.1 L Impressions: Abdomen/Pelvis CT 03/19/19 00:00 IMPRESSION: Post right hemicolectomy. There is anastomotic breakdown with mesenteric inflammation at the ileocolic anastomosis, and oral contrast tracking through the left rectus sheath at the level of the umbilicus, with a 4 cm pocket of contrast in the anterior abdominal wall Chest X-Ray 03/24/19 06:00 IMPRESSION: Postextubation Low lung volumes with bibasilar consolidation and trace pleural fluid Assessment & Plan - Diagnosis (1) Left lower quadrant abdominal wall mass Is this a current diagnosis for this admission?: Yes (2) Enterocutaneous fistula Is this a current diagnosis for this admission?: Yes - Plan Summary Plan Summary: This is a 53-year-old female status post takedown of enterocutaneous fistula and resection of her anastomosis with revision. The patient is awake and alert today. She reports that her pain is controlled. She reports flatus and several liquid bowel movements today. Jang discontinued, urinating normally. Acute blood loss anemia, likely due to surgery. Status post PRBC transfusion. Hemoglobin stable. Continue DVT prophylaxis with heparin and SCDs. Out of bed. Effort improving on incentive spirometry. Cont Acapella valve. Cont nebulizer treatments every 4 hours. Continue with aggressive pulmonary toilet. Continue pain control with celebrex and PRN morphine. Continue IV antibiotics. Malnutrition: Continue TPN. Hyperglycemia: Continue Lantus. Cont Insulin drip. Cont dressing changes BID.
--- NOTE | 2019-03-27 16:35 | PDOC PROGRESS REPORT ---
Subjective Progress Note for:: 03/27/19 Reason For Visit: LLQ ABD WALL MASS,ENTEROCUTANEOUS FISTULA, Physical Exam Vital Signs: Temp Pulse Resp BP Pulse Ox 97.8 F 100 16 142/75 H 100 03/27/19 15:53 03/27/19 15:53 03/27/19 15:53 03/27/19 15:53 03/27/19 15:53 Intake & Output 03/26/19 03/27/19 03/28/19 06:59 06:59 06:59 Intake Total 2705 2475 1338 Output Total 2800 3310 500 Balance -95 -835 838 Weight 84.3 kg 79.6 kg Results Laboratory Results: 03/26/19 05:35 03/27/19 05:38 03/27/19 05:38 Sodium 138.1 Potassium 4.3 Chloride 101 Carbon Dioxide 28 Anion Gap 9 BUN 11 Creatinine 0.52 Est GFR ( Amer) > 60 Est GFR (Non-Af Amer) > 60 Glucose 158 H Calcium 8.7 Total Bilirubin 0.2 AST 10 L ALT 15 Alkaline Phosphatase 51 Total Protein 6.0 L Albumin 2.4 L Impressions: Abdomen/Pelvis CT 03/19/19 00:00 IMPRESSION: Post right hemicolectomy. There is anastomotic breakdown with mesenteric inflammation at the ileocolic anastomosis, and oral contrast tracking through the left rectus sheath at the level of the umbilicus, with a 4 cm pocket of contrast in the anterior abdominal wall Chest X-Ray 03/24/19 06:00 IMPRESSION: Postextubation Low lung volumes with bibasilar consolidation and trace pleural fluid Assessment & Plan - Diagnosis (1) Left lower quadrant abdominal wall mass Is this a current diagnosis for this admission?: Yes (2) Enterocutaneous fistula Is this a current diagnosis for this admission?: Yes - Plan Summary Plan Summary: This is a 53-year-old female status post takedown of enterocutaneous fistula and resection of her anastomosis with revision. The patient is awake and alert today. She reports that her pain is controlled. She reports flatus and several liquid bowel movements today. Jang discontinued, urinating normally. Acute blood loss anemia, likely due to surgery. Status post PRBC transfusion. Hemoglobin stable. Continue DVT prophylaxis with heparin and SCDs. Out of bed. Effort improving on incentive spirometry. Cont Acapella valve. Cont nebulizer treatments every 4 hours. Continue with aggressive pulmonary toilet. Continue pain control with celebrex and PRN morphine. Continue IV antibiotics. Malnutrition: Continue TPN. Hyperglycemia: Continue Lantus. Cont Insulin drip. Cont dressing changes BID. Advance diet. The patient complains of multiple loose watery bowel movements. Will check C. difficile.
[2019-03-27] MEDS: INSULIN, REGULAR 100 UNIT/100 ML NORMAL SALINE IV PRN ×2 (17:14)
[2019-03-27] MEDS: HYDROCODONE/ACETAMINOPHEN 10-325 MG TABLET PO PRN (21:53)
[2019-03-28] MEDS: AMINO ACIDS 5 %/DEXTROSE 20 % 1,000 ML IV PRN (01:50)
[2019-03-28] MEDS: METRONIDAZOLE 500 MG/NS RTU 500 MG/100 ML RTUPB IV SCH (05:04)
[2019-03-28] MEDS: HEPARIN SOD (PORCINE) 5,000 UNIT/ML 1 ML SYRINGE SUBCUT SCH ×3 (05:05→21:49)
[2019-03-28 05:28] LABS: ABSOLUTE EOSINOPHILS # (AUTO) 0.3 10^3/uL (0.0-0.6); ABSOLUTE LYMPHOCYTES (AUTO) 1.8 10^3/uL (0.5-4.7); ABSOLUTE MONOCYTES (AUTO) 1.6 10^3/uL (0.1-1.4); ABSOLUTE NEUT (AUTO) 13.1 10^3/uL (1.7-8.2); BASOPHILS % (AUTO) 0.2 % (0-2); EOSINOPHILS % (AUTO) 1.7 % (0-6); HEMATOCRIT 30.8 % (36.0-47.0); HEMOGLOBIN 9.8 g/dL (12.0-15.5); LYMPHOCYTES % (AUTO) 10.9 % (13-45); MEAN CORPUSCULAR HEMOGLOBIN 23.5 pg (27.0-33.4); MEAN CORPUSCULAR HGB CONC 31.7 g/dL (32.0-36.0); MEAN CORPUSCULAR VOLUME 74 fl (80-97); MONOCYTES % (AUTO) 9.3 % (3-13); PLATELET COUNT 537 10^3/uL (150-450); RED BLOOD COUNT 4.15 10^6/uL (3.72-5.28); RED CELL DISTRIBUTION WIDTH 15.9 % (11.5-14.0); SEGMENTED NEUTROPHILS % (AUTO) 77.9 % (42-78); TOTAL CELLS COUNTED % (AUTO) 100 %; WHITE BLOOD COUNT 16.9 10^3/uL (4.0-10.5)
[2019-03-28 05:54] LABS: ALANINE AMINOTRANSFERASE 15 U/L (9-52); ALBUMIN 2.5 g/dL (3.5-5.0); ALKALINE PHOSPHATASE 47 U/L (38-126); ANION GAP 9 (5-19); ASPARTATE AMINO TRANSFERASE 11 U/L (14-36); BILIRUBIN,DIRECT 0.2 mg/dL (0.0-0.4); BILIRUBIN,TOTAL 0.2 mg/dL (0.2-1.3); BLOOD UREA NITROGEN 17 mg/dL (7-20); CALCIUM 8.6 mg/dL (8.4-10.2); CARBON DIOXIDE 27 mmol/L (22-30); CHLORIDE 101 mmol/L (98-107); GLUCOSE 163 mg/dL (75-110); POTASSIUM 4.4 mmol/L (3.6-5.0); SODIUM 137.3 mmol/L (137-145)
[2019-03-28] MEDS: INSULIN, REGULAR 100 UNIT/100 ML NORMAL SALINE IV PRN ×2 (06:57)
[2019-03-28] MEDS: INSULIN GLARGINE,HUM.REC.ANLOG 1,000 UNIT/10 ML VIAL SUBCUT SCH (09:22)
[2019-03-28] MEDS: CIPROFLOXACIN 400 MG/D5W RTU 400 MG/200 ML RTUPB IV SCH (09:22)
[2019-03-28] MEDS: CELECOXIB 100 MG CAPSULE PO SCH ×2 (09:29→21:49)
[2019-03-28] MEDS: HYDROCODONE/ACETAMINOPHEN 10-325 MG TABLET PO PRN ×2 (11:46→21:50)
[2019-03-28] MEDS: INSULIN LISPRO 100 UNIT/ML 3 ML VIAL SUBCUT SCH ×3 (12:03→23:11)
--- NOTE | 2019-03-28 12:27 | PDOC PROGRESS REPORT ---
Subjective Progress Note for:: 03/28/19 Reason For Visit: LLQ ABD WALL MASS,ENTEROCUTANEOUS FISTULA, Physical Exam Vital Signs: Temp Pulse Resp BP Pulse Ox 97.8 F 109 H 18 140/80 H 100 03/28/19 11:09 03/28/19 11:09 03/28/19 11:09 03/28/19 11:09 03/28/19 11:09 Intake & Output 03/27/19 03/28/19 03/29/19 06:59 06:59 06:59 Intake Total 2475 2895 1012 Output Total 3310 550 Balance -835 2345 1012 Weight 79.6 kg 80.4 kg Results Laboratory Results: 03/28/19 04:57 03/28/19 04:57 03/28/19 03/28/19 04:57 04:57 WBC 16.9 H RBC 4.15 Hgb 9.8 L Hct 30.8 L MCV 74 L MCH 23.5 L MCHC 31.7 L RDW 15.9 H Plt Count 537 H Seg Neutrophils % 77.9 Lymphocytes % 10.9 L Monocytes % 9.3 Eosinophils % 1.7 Basophils % 0.2 Absolute Neutrophils 13.1 H Absolute Lymphocytes 1.8 Absolute Monocytes 1.6 H Absolute Eosinophils 0.3 Absolute Basophils 0.0 Sodium 137.3 Potassium 4.4 Chloride 101 Carbon Dioxide 27 Anion Gap 9 BUN 17 Creatinine 0.58 Est GFR ( Amer) > 60 Est GFR (Non-Af Amer) > 60 Glucose 163 H Calcium 8.6 Total Bilirubin 0.2 AST 11 L ALT 15 Alkaline Phosphatase 47 Total Protein 6.0 L Albumin 2.5 L Impressions: Abdomen/Pelvis CT 03/19/19 00:00 IMPRESSION: Post right hemicolectomy. There is anastomotic breakdown with mesenteric inflammation at the ileocolic anastomosis, and oral contrast tracking through the left rectus sheath at the level of the umbilicus, with a 4 cm pocket of contrast in the anterior abdominal wall Chest X-Ray 03/24/19 06:00 IMPRESSION: Postextubation Low lung volumes with bibasilar consolidation and trace pleural fluid Assessment & Plan - Diagnosis (1) Left lower quadrant abdominal wall mass Is this a current diagnosis for this admission?: Yes (2) Enterocutaneous fistula Is this a current diagnosis for this admission?: Yes - Plan Summary Plan Summary: This is a 53-year-old female status post takedown of enterocutaneous fistula and resection of her anastomosis with revision. The patient is awake and alert today. She reports that her pain is controlled. She reports flatus and multiple liquid bowel movements today. She reports feeling "excellent" today. Jang discontinued, urinating normally. Acute blood loss anemia, likely due to surgery. Status post PRBC transfusion. Hemoglobin improving. Continue DVT prophylaxis with heparin and SCDs. Out of bed. Effort improving on incentive spirometry. Cont Acapella valve. Cont nebulizer treatments every 4 hours. Continue with aggressive pulmonary toilet. Continue pain control with celebrex and PRN morphine/hydrocodone. Afebrile, wounds appear clean. Discontinue IV antibiotics. Malnutrition: Tolerating regular diet. Discontinue TPN today. Start protein supplement/boost 3 times daily with meals. Hyperglycemia: Continue Lantus. Discontinue insulin drip. Restart sliding scale. Cont dressing changes BID. Advance diet. The patient complains of multiple loose watery bowel movements. C. difficile negative. Start Lomotil. HAYLIE drains with serous output. Discontinue inferior HAYLIE drain. Discharge planning.
[2019-03-28] MEDS: MORPHINE SULFATE 10 MG/ML INJ IV PRN (14:05)
[2019-03-28] MEDS: DIPHENOXYLATE HCL/ATROP SULF 2.5-0.025 MG TABLET PO PRN (14:05)
[2019-03-29] MEDS: MORPHINE SULFATE 10 MG/ML INJ IV PRN (00:36)
[2019-03-29] MEDS: ONDANSETRON HCL INJ/PF 4 MG/2 ML SDV IV PRN (00:41)
[2019-03-29] MEDS: INSULIN LISPRO 100 UNIT/ML 3 ML VIAL SUBCUT SCH ×2 (05:51→13:01)
[2019-03-29] MEDS: HEPARIN SOD (PORCINE) 5,000 UNIT/ML 1 ML SYRINGE SUBCUT SCH (06:05)
[2019-03-29] MEDS: DIPHENOXYLATE HCL/ATROP SULF 2.5-0.025 MG TABLET PO PRN (06:47)
[2019-03-29 07:51] LABS: ANION GAP 10 (5-19); BLOOD UREA NITROGEN 15 mg/dL (7-20); CALCIUM 8.7 mg/dL (8.4-10.2); CARBON DIOXIDE 28 mmol/L (22-30); CHLORIDE 99 mmol/L (98-107); GLUCOSE 124 mg/dL (75-110); POTASSIUM 4.6 mmol/L (3.6-5.0); SODIUM 136.7 mmol/L (137-145)
[2019-03-29] MEDS: INSULIN GLARGINE,HUM.REC.ANLOG 1,000 UNIT/10 ML VIAL SUBCUT SCH (09:20)
[2019-03-29] MEDS: HYDROCODONE/ACETAMINOPHEN 10-325 MG TABLET PO PRN (09:20)
[2019-03-29] MEDS: CELECOXIB 100 MG CAPSULE PO SCH (09:20)
--- NOTE | 2019-03-29 11:09 | PDOC DISCHARGE SUMMARY ---
General - Admit/Disc Date/PCP Admission Date/Primary Care Provider: 03/19/19 18:00 JOHN CARPIO PA-C Discharge Date: 03/29/19 - Discharge Diagnosis (1) Left lower quadrant abdominal wall mass Is this a current diagnosis for this admission?: Yes (2) Enterocutaneous fistula Is this a current diagnosis for this admission?: Yes - Additional Information Resuscitation Status: Full Code Discharge Diet: As Tolerated Discharge Activity: Balance Activity w/Rest, No Lifting Over 10 Pounds, No Lifting/Push/Pulling Home Medications: Albuterol Sulfate [Proair Hfa Inhalation Aerosol 8.5 gm Mdi] 1 puff IH Q4 PRN 03/20/19 Albuterol Sulfate [Ventolin 0.083% Neb 2.5 mg/3 ml Ampul] 1 vial NEB Q4 PRN 03/20/19 Diphenhydramine HCl [Benadryl] 50 mg PO Q6HP PRN 03/20/19 Ferrous Sulfate [Iron] 325 mg PO BID 03/20/19 Fluticasone Propionate [Flovent HFA 220 mcg MDI] 1 puff IH DAILY 03/20/19 Insulin Glargine,Hum.rec.anlog [Lantus Insulin 100 Unit/1 ml 10 ml] 12 unit SUBCUT QHS 03/20/19 History of Present Illness History of Present Illness: ORION PEREZ is a 53 year old female approximately 6 weeks status post laparoscopic right hemicolectomy for cancer. The patient has done relatively well for the last few weeks. Over the last 1 week she reports swelling and induration of an area in the left lower quadrant. The patient reports that it began as a "pimple" and began to swell, enlarge, and become incredibly painful. Her pain is sharp and stabbing. It does not radiate. Nothing makes it better. Palpation and movement make it worse. She denies fevers or chills. Patient presented to my office today and was evaluated. Limited incision and drainage was performed in the left lower quadrant, showing a large subcutaneous cavity with turbid fluid present. This was inconsistent with both abscess and enterocutaneous fistula. Due to the uncertain nature of the lesion, she was sent to the hospital for admission and investigation into her symptoms. Hospital Course Hospital Course: Patient was admitted to the hospital, and a CT scan was performed. This showed an enterocutaneous fistula in the left lower quadrant. The patient was taken to surgery that same day for takedown of her enterocutaneous fistula, and revision of her ileocolic anastomosis. Her abdominal wall abscess (due to the EC fistula) was irrigated. The patient was then taken to the intensive care unit for further treatment. The patient was maintained on TPN due to her malnutrit ion. Very slowly her fevers subsided, her bowel function returned, and she began to improve. She began tolerating a diet. Her TPN was discontinued. Her blood sugars remained controlled. Her pain was controlled with oral pain medications. By 03/29/2019 the patient was feeling very well, eating without difficulty, stooling, and was requesting discharge. At this time she is felt to be safe for discharge. I have encouraged her to contact me immediately with any problems, issues, or questions. Her family is present at the bedside and agrees to this as well. Physical Exam Vital Signs: Temp Pulse Resp BP Pulse Ox 98.4 F 105 H 22 H 129/69 H 99 03/29/19 07:35 03/29/19 07:35 03/29/19 07:35 03/29/19 07:35 03/29/19 07:35 Intake & Output 03/28/19 03/29/19 03/30/19 06:59 06:59 06:59 Intake Total 2895 1112 Output Total 550 102 Balance 2345 1010 Weight 80.4 kg 81.3 kg Results Laboratory Results: 03/28/19 04:57 03/29/19 07:06 03/29/19 07:06 Sodium 136.7 L Potassium 4.6 Chloride 99 Carbon Dioxide 28 Anion Gap 10 BUN 15 Creatinine 0.59 Est GFR ( Amer) > 60 Est GFR (Non-Af Amer) > 60 Glucose 124 H Calcium 8.7 Impressions: Abdomen/Pelvis CT 03/19/19 00:00 IMPRESSION: Post right hemicolectomy. There is anastomotic breakdown with mesenteric inflammation at the ileocolic anastomosis, and oral contrast tracking through the left rectus sheath at the level of the umbilicus, with a 4 cm pocket of contrast in the anterior abdominal wall Chest X-Ray 03/24/19 06:00 IMPRESSION: Postextubation Low lung volumes with bibasilar consolidation and trace pleural fluid Qualifiers - * PATIENT BEING DISCHARGED WITH ANY OF THE FOLLOWING DIAGNOSIS: No Acute Heart Failure Is this a Heart Failure Patient?: No Plan Discharge Plan: Discharge home. Diet as tolerated. Activity: No lifting greater than 10 pounds x 6 weeks after surgery. Follow-up with me in 7 to 10 days. [place] 10/325 mg p.o. every 6 hours as needed for pain. Ibuprofen 800 mg p.o. 3 times daily with meals. Lomotil 2.5 mg p.o. twice daily. Discontinue Lomotil if constipation develops. Okay to shower. Damp dressing changes to midline wounds twice daily. Contact me immediately with fevers, chills, malaise, or increasing amounts of abdominal pain. Time Spent: Less than 30 Minutes
[2019-03-29 12:25] VITALS: BP 119/69
== END 2019-03-29 14:02 | disposition home or self-care (01) | DRG 330 ==
LOC: UNDOADMOB 09:45 → 2N 09:45 → OBSVTOIN 18:00 → ICU 21:20 → 4S 03-26 23:09 → 3S 03-27 08:50
PROVIDERS: ADMIT Surgery; ATTEND Surgery
PROC: 0D1B0ZL Bypass Ileum to Transverse Colon, Open Approach (ICD-10-PCS; principal; 2019-03-21)
PROC: 0DN80ZZ Release Small Intestine, Open Approach (ICD-10-PCS; 2019-03-21)
PROC: 0WBF0ZZ Excision of Abdominal Wall, Open Approach (ICD-10-PCS; 2019-03-21)
PROC: 02HV33Z Insertion of Infusion Device into Superior Vena Cava, Percutaneous Approach (ICD-10-PCS; 2019-03-21)
PROC: 30233N1 Transfusion of Nonautologous Red Blood Cells into Peripheral Vein, Percutaneous Approach (ICD-10-PCS; 2019-03-22)
DX: I88.0 Nonspecific mesenteric lymphadenitis (principal); T81.83XA Persistent postprocedural fistula, initial encounter; K63.2 Fistula of intestine; E46 Unspecified protein-calorie malnutrition; L02.211 Cutaneous abscess of abdominal wall; D62 Acute posthemorrhagic anemia; K66.0 Peritoneal adhesions (postprocedural) (postinfection); E11.65 Type 2 diabetes mellitus with hyperglycemia; J45.909 Unspecified asthma, uncomplicated; F17.210 Nicotine dependence, cigarettes, uncomplicated; Z79.4 Long term (current) use of insulin; Z79.51 Long term (current) use of inhaled steroids; Z79.899 Other long term (current) drug therapy; Z90.49 Acquired absence of other specified parts of digestive tract; Z85.038 Personal history of other malignant neoplasm of large intestine
CPT/HCPCS: 36415; 36430; 71045; 74177; 790; 80048; 80053; 82962; 83735; 84100; 84134; 84478; 85025; 85027; 85610; 86850; 86900; 86901; 86920; 87493; 88307; 94002; 94003; 94640; C1751; G0378; G0379; J0131; J0744; J1170; J1642; J1644; J1815; J1885; J1940; J2250; J2270; J2370; J2405; J2704; J2765; J3010; J3475; J3490; J7040; J7050; J7120; P9016; S0028

== ENCOUNTER 2019-03-31 09:24 | Emergency (ER) | payer SELFPAY ==
[2019-03-31 09:31] VITALS: BP 112/91
== END 2019-03-31 10:48 | disposition left against medical advice (07) ==
LOC: ER 09:24
DX: Z53.21 Procedure and treatment not carried out due to patient leaving prior to being seen by health care provider (principal)

== ENCOUNTER → 2020-04-07 | Outpatient (CLI) | payer OTHER ==
[2020-04-07 11:45] LABS: ALBUMIN 4.3 g/dL (3.5-5.0); ALKALINE PHOSPHATASE 52 U/L (38-126); ANION GAP 7 (5-19); ASPARTATE AMINO TRANSFERASE 24 U/L (14-36); BILIRUBIN,TOTAL 0.4 mg/dL (0.2-1.3); BLOOD UREA NITROGEN 13 mg/dL (7-20); CALCIUM 9.4 mg/dL (8.4-10.2); CARBON DIOXIDE 31 mmol/L (22-30); CHLORIDE 102 mmol/L (98-107); CHOLESTEROL 125.51 mg/dL (0-200); GLUCOSE 118 mg/dL (75-110); POTASSIUM 4.6 mmol/L (3.6-5.0); TOTAL PROTEIN 8.1 g/dL (6.3-8.2); TRIGLYCERIDES 88 mg/dL (<150)
[2020-04-07 11:56] LABS: DIRECT LDL 44 mg/dL (<100)
== END ==
LOC: CCC 10:10
PROVIDERS: ATTEND Physician Assistant Surgical
DX: E11.8 Type 2 diabetes mellitus with unspecified complications (principal)
CPT/HCPCS: 36415; 80053; 80061; 83036

== ENCOUNTER 2020-05-25 15:11 | Emergency (ER) | payer OTHER ==
[2020-05-25 15:23] VITALS: BP 151/83
--- NOTE | 2020-05-25 15:50 | ER Document Report ---
HPI - HPI Patient complains to provider of: surgical incision drainage Time Seen by Provider: 05/25/20 15:38 Onset: Other - month Onset/Duration: Gradual, Intermittent Quality of pain: Other - pinch intermittently Severity: Mild Pain Level: 1 Context: 54-year-old female presented to ED for drainage from her abdominal incision. She states she had polyps removed from her intestines through a laparotomy due to the size of the polyps. She states Dr. Zendejas did the surgery and she had seen him about a month ago and he wanted to do another procedure to fix this and she did not want to do it at that time now the appears to be a suture coming out of the wound and she is concerned and came to the emergency room. She states there is a pinching pain but no real pain there is no redness there is no inflammation patient states she has not been afebrile she was just concerned what was coming out of the incision. I did contact Dr. Escobar who is on-call for the practice at this time. He stated that as long as she did not have a fever or any signs of infection she could put bacitracin dressing and follow-up with Dr. Zendejas on Saturday. Patient states now she is not having any pain she is not having any fever she just was concerned about what was coming out of her incision. Associated Symptoms: Other - What appears to be a suture coming out of her surgical incision from 2019. She has had drainage for about a month. Exacerbated by: Denies Relieved by: Denies Similar symptoms previously: Yes Recently seen / treated by doctor: Yes - ROS ROS below otherwise negative: Yes - CONSTITUTIONAL Constitutional: DENIES: Fever, Chills - EENT EENT: DENIES: Sore Throat, Ear Pain, Nasal Drainage-Clear, Nasal Drainage- Purulent, Congestion, Eye problems - NEURO Neurology: DENIES: Headache, Weakness, Vision blurred, Dizzinesss / Vertigo - CARDIOVASCULAR Cardiovascular: DENIES: Chest pain - GASTROINTESTINAL Gastrointestinal: DENIES: Abdominal Pain, Nausea, Patient vomiting, Diarrhea, Constipation, Black / Bloody Stools Notes: Drainage, and surgical incision to the abdomen from surgery in 2019. What appears to be a sutures coming out of the incision at this time. It does not come all the way out. She states it does pinch when you pull on it. I have told her to not pull on it clean incision 2-3 times a day and apply bacitracin until she can get follow-up with Dr. Zendejas - URINARY Urinary: DENIES: Dysuria, Urgency, Frequency - REPRODUCTIVE Reproductive: DENIES: :, Postmenopausal, Abnormal bleeding / discharge - MUSCULOSKELETAL Musculoskeletal: REPORTS: Extremity pain, Back Pain, Neck Pain, Swelling - DERM Skin Color: Normal Skin Problems: Open to Air - Small opening in her incision with drainage and what appears to be a suture coming out of the incision. Past Medical History - General Information source: Patient - Social History Smoking Status: Former Smoker Chew tobacco use (# tins/day): No Frequency of alcohol use: None Drug Abuse: None Family History: Reviewed & Not Pertinent Patient has suicidal ideation: No Patient has homicidal ideation: No - Past Medical History Cardiac Medical History: Reports: None Pulmonary Medical History: Reports: Hx Asthma - MILD EENT Medical History: Reports: None Neurological Medical History: Reports: None Endocrine Medical History: Reports: Hx Diabetes Mellitus Type 2 Renal/ Medical History: Reports: None Malignancy Medical History: Reports: None GI Medical History: Reports: Hx Colonoscopy, Hx Endoscopy Musculoskeletal Medical History: Reports None Skin Medical History: Reports None Psychiatric Medical History: Reports: Hx Depression Traumatic Medical History: Reports: None Past Surgical History: Reports: Hx Abdominal Surgery, Hx Orthopedic Surgery - R shoulder, Hx Tubal Ligation - Immunizations Immunizations up to date: Yes Hx Diphtheria, Pertussis, Tetanus Vaccination: Yes Vertical Provider Document - CONSTITUTIONAL Agree With Documented VS: Yes General Appearance: WD/WN, No Apparent Distress - INFECTION CONTROL TRAVEL OUTSIDE OF THE [place] IN LAST 30 DAYS: No - HEENT HEENT: Atraumatic, Normal ENT Exam, Normocephalic, PERRLA - NECK Neck: Normal Inspection, Supple - RESPIRATORY Respiratory: Breath Sounds Normal, No Respiratory Distress - CARDIOVASCULAR Cardiovascular: Regular Rate, Regular Rhythm, No Murmur - GI/ABDOMEN Gastrointestinal: Abdomen Soft, Abdomen Tender - The incisional site. Small open draining wound to the incision site there is a suture at the incision site. It does not come out easily so I did not continue to pull on it, No Organomegaly, Normal Bowel Sounds - BACK Back: Normal Inspection - MUSCULOSKELETAL/EXTREMETIES Musculoskeletal/Extremeties: MAEW, FROM, Non-Tender - NEURO Level of Consciousness: Awake, Alert, Appropriate Motor/Sensory: No Motor Deficit, No Sensory Deficit, No Pronator Drift - DERM Integumentary: negative: Laceration - There is a small opening to her surgical incision site surgery was 2019 to remove polyps via laparotomy. There is a small amount of drainage with a greenish suture exposed that was not there before according to patient Course - Re-evaluation Re-evalutation: 05/25/20 16:[address] Escobar concerning the surgical site. There is mild drainage no fever no redness no inflammation very minimal pain only when you touch the area. There is what appears to be a suture coming through the incision. I did discuss all this with Dr. Escobar and he stated as long she did not have any fever pain engine drainage or signs of infection she could have the wound dressed with bacitracin and dressing and then have her follow-up with Dr. Zendejas who will be back on Saturday. She is agreeable with this plan and patient was discharged home. - Vital Signs Vital signs: Temp Pulse Resp BP Pulse Ox 98.7 F 103 H 12 151/83 H 97 05/25/20 15:37 05/25/20 15:21 05/25/20 15:21 05/25/20 15:21 05/25/20 15:21 Discharge - Discharge Clinical Impression: Drainage from surgical wound Condition: Stable Disposition: HOME, SELF-CARE Additional Instructions: You were seen today for drainage from your surgical incision from 2019. You have what appears to be a suture coming out of the incision. I have spoken with Dr. Escobar concerning this possible suture coming to the incision. He stated it just need to be cleaned bacitracin applied and a dressing covering it. If you develop any fever redness swelling increasing pain you need to return and have blood work and testing done. SOAP CLEANSING: Gently wash the wound daily using a mild soap (like Ivory, Phisoderm, Neutrogena). Use warm water, rubbing gently until all debris, ooze, and crusting have been washed from the wound. Allow to dry briefly (about 10 minutes) after cleaning. Repeat this cleansing at least three times a day for the first two days and then once or twice a day. ANTIBIOTIC OINTMENT PROTECTION: Your wounds are such that dressing them is not practical or optional. After cleansing, you should apply a thin coating of antibiotic ointment (Bacitracin, not Neosporin) to the wounds at least three times daily. This lessens infection risk, and may decrease the amount of scarring. Use a q-tip or dull butter knife, not your finger, to apply this ointment. Any debris or ooze which builds up in the ointment should be gently rubbed off with a sterile gauze pad. Harder crusting may need to be gently scrubbed off with a clean wash cloth with soap and warm water, perhaps applying a warm, wet wash cloth to the wound for ten minutes first. Development of redness, severe itching, or blistering may mean allergy to the ointment. See the doctor. FOLLOW-UP CARE: If you have been referred to a physician for follow-up care, call the physicians office for an appointment as you were instructed or within the next two days. If you experience worsening or a significant change in your symptoms, notify the physician immediately or return to the Emergency Department at any time for re-evaluation. He is got called Dr. Zendejas's office today and schedule an appointment for Saturday Forms: Elevated Blood Pressure Referrals: [facility] [Primary Care Provider] - Follow up as needed NATHAN ZENDEJAS MD [ACTIVE STAFF] - Follow up as needed
== END 2020-05-25 15:51 | disposition home or self-care (01) ==
LOC: ER 15:11
DX: T81.9XXA Unspecified complication of procedure, initial encounter (principal); Z98.890 Other specified postprocedural states; J45.909 Unspecified asthma, uncomplicated; E11.9 Type 2 diabetes mellitus without complications
CPT/HCPCS: 99283

== ENCOUNTER 2020-05-27 13:40 | Emergency (ER) | payer OTHER ==
--- NOTE | 2020-05-27 13:52 | ER Document Report ---
ED Medical Screen (RME) - General Chief Complaint: Vaginal Bleeding Stated Complaint: VAGINAL ISSUES Time Seen by Provider: 05/27/20 13:47 Primary Care Provider: [facility] [Primary Care Provider] - Follow up as needed Mode of Arrival: Ambulatory Information source: Patient Notes: Patient is a 54-year-old female presenting to the emergency department with complaints of vaginal bleeding. Patient reports vaginal bleeding started last night. She states she is in menopause and has not had any vaginal bleeding for the last 3 years. She reports feeling a pressure in the vaginal area. She denies any other symptoms to include nausea, vomiting, diarrhea, fever or chills. Abdomen soft, nontender. I have greeted and performed a rapid initial assessment of this patient. A comprehensive ED assessment and evaluation of the patient, analysis of test results and completion of the medical decision making process will be conducted by additional ED providers. I have specifically instructed the patient or family members with the patient to immediately return to any nursing staff should anything change in the patient's condition or with their chief complaint. TRAVEL OUTSIDE OF THE [place] IN LAST 30 DAYS: No - Related Data Allergies/Adverse Reactions: Penicillins Allergy (Severe, Verified 03/31/19 09:25) Hives Past Medical History - Past Medical History Cardiac Medical History: Denies: Hx Atrial Fibrillation, Hx Congestive Heart Failure, Hx Coronary Artery Disease, Hx Heart Attack, Hx Hypercholesterolemia, Hx Hypertension, Hx Peripheral Vascular Disease, Hx Pulmonary Embolism, Hx Heart Murmur Pulmonary Medical History: Reports: Hx Asthma - MILD Denies: Hx Bronchitis, Hx COPD, Hx Pneumonia, Hx Respiratory Failure, Hx Sleep Apnea, Hx Tuberculosis Neurological Medical History: Denies: Hx Cerebrovascular Accident, Hx Seizures, Hx Parkinson's Disease Endocrine Medical History: Reports: Hx Diabetes Mellitus Type 2. Denies: Hx Graves' Disease, Hx Hyperthyroidism, Hx Hypothyroidism Renal/ Medical History: Denies: Hx End Stage Renal Disease, Hx Kidney Stones, Hx Ovarian Cysts, Hx Peritoneal Dialysis, Hx Pelvic Inflammatory Disease Malignancy Medical History: Denies: Hx Breast Cancer, Hx Cervical Cancer, Hx Leukemia, Hx Lung Cancer, Hx Ovarian Cancer GI Medical History: Reports: Hx Colonoscopy, Hx Endoscopy. Denies: Hx Crohn's Disease, Hx Gastroesophageal Reflux Disease, Hx Hiatal Hernia, Hx Irritable Bowel, Hx Liver Failure, Hx Pancreatitis, Hx Ulcer Musculoskeltal Medical History: Denies Hx Arthritis, Denies Hx Fibromyalgia, Denies Hx Multiple Sclerosis, Denies Hx Muscular Dystrophy, Denies Hx Systemic Lupus Erythematosus Psychiatric Medical History: Reports: Hx Depression Denies: Hx Bipolar Disorder, Hx Dementia, Hx Post Traumatic Stress Disorder, Hx Schizophrenia Traumatic Medical History: Denies: Hx Fractures Infectious Medical History: Denies: Hx HIV Past Surgical History: Reports: Hx Abdominal Surgery, Hx Orthopedic Surgery - R shoulder, Hx Tubal Ligation. Denies: Hx Appendectomy, Hx Bowel Surgery, Hx Section, Hx Cholecystectomy, Hx Colostomy, Hx Coronary Artery Bypass Graft, Hx Gastric Bypass Surgery, Hx Herniorrhaphy, Hx Hysterectomy, Hx Mastectomy, Hx Pacemaker, Hx Tonsillectomy - Immunizations Immunizations up to date: Yes Hx Diphtheria, Pertussis, Tetanus Vaccination: Yes Doctor's Discharge - Discharge Referrals: [facility] [Primary Care Provider] - Follow up as needed
[2020-05-27 14:32] LABS: ABSOLUTE EOSINOPHILS # (AUTO) 0.3 10^3/uL (0.0-0.6); ABSOLUTE LYMPHOCYTES (AUTO) 2.1 10^3/uL (0.5-4.7); ABSOLUTE MONOCYTES (AUTO) 0.6 10^3/uL (0.1-1.4); ABSOLUTE NEUT (AUTO) 7.2 10^3/uL (1.7-8.2); BASOPHILS % (AUTO) 0.2 % (0-2); EOSINOPHILS % (AUTO) 2.5 % (0-6); HEMATOCRIT 37.2 % (36.0-47.0); HEMOGLOBIN 12.1 g/dL (12.0-15.5); LYMPHOCYTES % (AUTO) 20.4 % (13-45); MEAN CORPUSCULAR HEMOGLOBIN 24.5 pg (27.0-33.4); MEAN CORPUSCULAR HGB CONC 32.5 g/dL (32.0-36.0); MEAN CORPUSCULAR VOLUME 75 fl (80-97); MONOCYTES % (AUTO) 5.9 % (3-13); PLATELET COUNT 287 10^3/uL (150-450); RED BLOOD COUNT 4.93 10^6/uL (3.72-5.28); RED CELL DISTRIBUTION WIDTH 15.7 % (11.5-14.0); TOTAL CELLS COUNTED % (AUTO) 100 %; WHITE BLOOD COUNT 10.1 10^3/uL (4.0-10.5)
[2020-05-27 14:39] LABS: APPEARANCE,URINE SLIGHTLY-CLOUDY; BILIRUBIN,URINE NEGATIVE (NEGATIVE); COLOR,URINE YELLOW; GLUCOSE, URINE NEGATIVE (NEGATIVE); KETONES,URINE NEGATIVE (NEGATIVE); LEUKOCYTE ESTERASE,URINE LARGE (NEGATIVE); NITRITE,URINE NEGATIVE (NEGATIVE); PROTEIN,URINE NEGATIVE (NEGATIVE); URINE SPECIFIC GRAVITY 1.006; UROBILINOGEN,URINE NEGATIVE mg/dL (<2.0)
[2020-05-27 14:48] LABS: ALBUMIN 4.5 g/dL (3.5-5.0); ALKALINE PHOSPHATASE 58 U/L (38-126); ANION GAP 9 (5-19); ASPARTATE AMINO TRANSFERASE 23 U/L (14-36); BILIRUBIN,TOTAL 0.5 mg/dL (0.2-1.3); BLOOD UREA NITROGEN 12 mg/dL (7-20); CALCIUM 9.7 mg/dL (8.4-10.2); CARBON DIOXIDE 29 mmol/L (22-30); CHLORIDE 100 mmol/L (98-107); GLUCOSE 129 mg/dL (75-110); POTASSIUM 4.2 mmol/L (3.6-5.0); TOTAL PROTEIN 8.3 g/dL (6.3-8.2)
--- NOTE | 2020-05-27 15:44 | RADIOLOGY REPORT (SQ) ---
EXAM DESCRIPTION: U/S NON OB PEL TV W/DOPPLER IMAGES COMPLETED DATE/TIME: 05/27/2020 3:29 pm REASON FOR STUDY: vaginal bleeding post menopause COMPARISON: 01/24/2010 TECHNIQUE: Dynamic and static grayscale images acquired of the pelvis via transvaginal approach and recorded on PACS. Additional selected color Doppler and spectral images recorded. LIMITATIONS: None. FINDINGS: UTERUS: Multiple fibroids. Heterogeneous echotexture. ENDOMETRIAL STRIPE: No focal or generalized thickening. No masses. CERVIX: No nabothian cysts. RIGHT OVARY AND DOPPLER: Normal size. No worrisome masses. Normal arterial vascular flow without evid ence for torsion. LEFT OVARY AND DOPPLER: Normal size. No worrisome masses. Normal arterial vascular flow without evide nce for torsion. FREE FLUID: There is a trace amount of free fluid in the pelvis. OTHER: No other significant finding. MEASUREMENTS: UTERUS: 10.0 x 5.0 x 5.9 cm. ENDOMETRIAL STRIPE: 8 mm. RIGHT OVARY: 3.4 x 2.1 x 1.8 cm. LEFT OVARY: 2.2 x 2.2 x 2.5 cm. IMPRESSION: Fibroid uterus. The largest measures 2.7 x 2.3 x 2.2 cm. No other significant findings . TECHNICAL DOCUMENTATION: JOB ID: [id number] 2010 [employer]- All Rights Reserved Rev Reading location - IP/workstation name: [email or web address]
[2020-05-27] MEDS ORDERED: SULFAMETHOXAZOLE/TRIMETHOPRIM 800-160 MG TABLET PO ONE (20:25)
[2020-05-27] MEDS ORDERED: PHENAZOPYRIDINE HCL 200 MG TABLET PO ONE (20:26)
[2020-05-27 21:01] VITALS: BP 159/77
--- NOTE | 2020-05-27 22:03 | ER Document Report ---
Entered by FRANKY GUADALUPE SCRIBE 05/27/202022 Acting as scribe for:AKBAR HIRSCH IV, MD ED GI/ - General Chief Complaint: Vaginal Bleeding Stated Complaint: VAGINAL ISSUES Time Seen by Provider: 05/27/20 13:47 Primary Care Provider: [facility] [Primary Care Provider] - Follow up as needed Mode of Arrival: Ambulatory Information source: Patient Notes: This 54 year old female patient presents to the ED today with complaints of hematuria that started yesterday. Patient states that she noticed bright red blood with wiping after voiding. She also reports associated burning with urination, dysuria, urinary frequency, and urinary urgency. She is x3 years post menopause. She reports a history of fibroids and states that x2 were removed in the past. Denies any nausea, vomiting, or diarrhea. TRAVEL OUTSIDE OF THE [place] IN LAST 30 DAYS: No - Related Data Allergies/Adverse Reactions: Penicillins Allergy (Severe, Verified 05/27/20 19:54) Hives Home Medications: Lantus. Metformin Past Medical History - General Information source: Patient Last Menstrual Period: 2016 - Social History Smoking Status: Former Smoker Cigarette use (# per day): No Chew tobacco use (# tins/day): No Smoking Education Provided: No Frequency of alcohol use: None Drug Abuse: None Lives with: Spouse/Significant other Family History: Reviewed & Not Pertinent Patient has suicidal ideation: No Patient has homicidal ideation: No Pulmonary Medical History: Reports: Hx Asthma - MILD Endocrine Medical History: Reports: Hx Diabetes Mellitus Type 2 GI Medical History: Reports: Hx Colonoscopy, Hx Endoscopy Psychiatric Medical History: Reports: Hx Depression Past Surgical History: Reports: Hx Abdominal Surgery, Hx Gynecologic Surgery - Fibroid removal, Hx Orthopedic Surgery - R shoulder, Hx Tubal Ligation - Immunizations Immunizations up to date: Yes Hx Diphtheria, Pertussis, Tetanus Vaccination: Yes Review of Systems - Review of Systems Constitutional: No symptoms reported EENT: No symptoms reported Cardiovascular: No symptoms reported Respiratory: No symptoms reported Gastrointestinal: See HPI. denies: Diarrhea, Nausea, Vomiting Genitourinary: See HPI, Burning, Dysuria, Frequency, Hematuria, Urgency Female Genitourinary: See HPI, Post menopausal Musculoskeletal: No symptoms reported Skin: No symptoms reported Hematologic/Lymphatic: No symptoms reported Neurological/Psychological: No symptoms reported -: Yes All other systems reviewed and negative Physical Exam - Vital signs Vitals: Temp Pulse Resp BP Pulse Ox 98.8 F 104 H 20 193/76 H 99 05/27/20 13:46 05/27/20 13:46 05/27/20 13:46 05/27/20 13:46 05/27/20 13:46 - General General appearance: Appears well, Alert In distress: None - HEENT Head: Normocephalic, Atraumatic Eyes: Normal Pupils: PERRL - Respiratory Respiratory status: No respiratory distress Chest status: Nontender Breath sounds: Normal Chest palpation: Normal - Cardiovascular Rhythm: Regular Heart sounds: Normal auscultation Murmur: No Friction rub: No Gallop: None auscultated - Abdominal Inspection: Normal Distension: No distension Bowel sounds: Normal Tenderness: Nontender - Abdomen soft Organomegaly: No organomegaly - Genitourinary Notes: Deferred by patient - Back Back: Normal, Nontender - Extremities General upper extremity: Normal inspection General lower extremity: Normal inspection - Neurological Neuro grossly intact: Yes Orientation: AAOx4 [place] Coma Scale Eye Opening: Spontaneous [place] Coma Scale Verbal: Oriented [place] Coma Scale Motor: Obeys Commands [place] Coma Scale Total: 15 - Psychological Associated symptoms: Normal affect, Normal mood - Skin Skin Temperature: Warm Skin Moisture: Dry Skin Color: Normal Course - Re-evaluation Re-evalutation: 05/27/20 20:28 Results of ED MSE discussed with patient. All questions were answered prior to discharge. Emergency signs and symptoms, reasons to return to the emergency department discussed with patient. - Vital Signs Vital signs: Temp Pulse Resp BP Pulse Ox 97.8 F 83 18 159/77 H 98 05/27/20 21:17 05/27/20 21:00 05/27/20 21:00 05/27/20 21:00 05/27/20 21:00 - Laboratory Result Diagrams: 05/27/20 14:09 05/27/20 14:09 Laboratory results interpreted by me: 05/27/20 05/27/20 05/27/20 14:00 14:09 14:09 MCV 75 L MCH 24.5 L RDW 15.7 H Glucose 129 H Total Protein 8.3 H Urine Blood LARGE H Ur Leukocyte Esterase LARGE H - Diagnostic Test Radiology reviewed: Reports reviewed Discharge - Discharge Clinical Impression: Hemorrhagic cystitis Fibroid uterus Qualifiers: Uterine leiomyoma location: unspecified location Qualified Code(s): D25.9 - Le iomyoma of uterus, unspecified Condition: Stable Disposition: HOME, SELF-CARE Additional Instructions: Return to the Emergency Department without delay if any worse. HOME CARE INSTRUCTIONS & INFORMATION: Thank you for choosing us for your medical needs. We hope you're satisfied with the care you received. After you l eave, you must properly care for your problem and, at the same time, observe its progress. Any condition can change. Some illnesses can change rapidly over hours or days. If your condition worsens, return to the Emergency Department or see your physician promptly. ABOUT YOUR X-RAYS AND EKG'S: If you had an EKG or X-rays taken, they have been read by the Emergency Physician. The X-rays and EKG's will also be read by a Radiologist or Animal Warden within 24 hours. If discrepancies are noted, you will be notified by telephone. Please be certain the ED has a correct telephone number & address where you can be reached. Also, realize that some fractures or abnormalities do not show up on initial X-rays. If your symptoms continue, see your physician. ABOUT YOUR LABORATORY TEST: If you had laboratory tests, the results have been reviewed by the Emergency Physician. Some test results (for example cultures) may not be available for several days. You will be contacted if any test result shows you need additional treatment. Please be certain the ED has a correct telephone number and address where you can be reached. ABOUT YOUR MEDICATIONS: You will receive instructions on how to take your medicine on the prescription label you receive. Additional information may be provided by the Pharmacy. If you have questions afterwards, call the ED for clarification or further instructions. Some prescribed medications may cause drowsiness. Do not perform tasks such as driving a car or operating machinery without consulting your Pharmacist. If you feel you need a refill of pain medication, your condition will need re-evaluation. Please do not call for a refill of any medication. ABOUT YOUR SIGNATURE: Signature of this document acknowledges to followin. Understanding that you received emergency treatment and that you may be released before al medical problems are known or treated. Please be certain the ED has a correct phone number & address where you can be reached. 2. Acknowledgement that you will arrange for follow-up care as recommended. 3. Authorization for the Emergency Physician to provide information to your follow-up Physician in order to maximize your care. AT ANY TIME, IF YOUR SYMPTOMS CHANGE SIGNIFICANTLY OR WORSEN OR YOU DEVELOP NEW SYMPTOMS, RETURN TO THE EMERGENCY DEPARTMENT IMMEDIATELY FOR RE-EVALUATION. OUR GOAL IS TO PROVIDE EXCELLENT MEDICAL CARE! WE HOPE THAT WE HAVE MET YOUR EXPECTATIONS DURING YOUR EMERGENCY DEPARTMENT VISIT AND THAT YOU FEEL YOU HAVE RECEIVED EXCELLENT CARE! Urinary Tract Infection Your evaluation indicates that you have a urinary tract infection. This is due to germs growing in the bladder. This is a common problem. This infection usually responds quickly to antibiotics. Your antibiotic should be taken exactly as prescribed. Drink plenty of fluids -- three to four quarts a day. Occasionally, a bladder anesthetic will be prescribed to help stop the feeling of urgency until the antibiotic has a chance to clear the infection. This may cause your urine to be dark orange. Certain urine infections require a culture. If the doctor obtained a culture, the results will be back in two days. You should call to see if a change in treatment is needed. A repeat urinalysis after you finish treatment is often recommended. The physician will let you know if further testing is required. Call the doctor if you develop fever, chills, flank pain, inability to urinate, or blood in the urine. Fibroids Fibroids are benign growths in the uterus. They can cause enlargement of the uterus, irregular bleeding, sever bleeding with periods, and abdominal pain. Anemia may result if periods are heavy. Fibroids tend to grow until menopause, then slowly shrink. If fibroids cause severe symptoms, they can be treated surgically. Call or return if vaginal bleeding or pain becomes severe. Prescriptions: Sulfamethoxazole/Trimethoprim [Bactrim Ds Tablet] 1 each PO BID 10 Days #20 tablet Phenazopyridine HCl [Pyridium 200 mg Tablet] 200 mg PO TID #6 tablet Referrals: [facility] [Primary Care Provider] - Follow up as needed I personally performed the services described in the documentation, reviewed and edited the documentation which was dictated to the scribe in my presence, and it accurately records my words and actions.
== END 2020-05-27 21:17 | disposition home or self-care (01) ==
LOC: ER 13:40
DX: N30.91 Cystitis, unspecified with hematuria (principal); D25.9 Leiomyoma of uterus, unspecified; R31.9 Hematuria, unspecified; R30.9 Painful micturition, unspecified; R30.0 Dysuria; R35.0 Frequency of micturition; R39.15 Urgency of urination; Z88.0 Allergy status to penicillin; Z79.4 Long term (current) use of insulin; Z79.84 Long term (current) use of oral hypoglycemic drugs
CPT/HCPCS: 99284; 36415; 87086; 85025; 87088; 80053; 81001; 87186; 76830; 93976; J3490

== ENCOUNTER → 2020-06-24 | Outpatient (CLI) | payer OTHER ==
[2020-06-24 10:09] LABS: APPEARANCE,URINE CLEAR; BILIRUBIN,URINE NEGATIVE (NEGATIVE); COLOR,URINE STRAW; GLUCOSE, URINE NEGATIVE (NEGATIVE); KETONES,URINE NEGATIVE (NEGATIVE); LEUKOCYTE ESTERASE,URINE NEGATIVE (NEGATIVE); NITRITE,URINE NEGATIVE (NEGATIVE); PROTEIN,URINE NEGATIVE (NEGATIVE); UROBILINOGEN,URINE NEGATIVE mg/dL (<2.0)
[2020-06-24 10:29] LABS: ALBUMIN 4.4 g/dL (3.5-5.0); BLOOD UREA NITROGEN 11 mg/dL (7-20); CALCIUM 9.4 mg/dL (8.4-10.2); GLUCOSE 126 mg/dL (75-110); POTASSIUM 4.4 mmol/L (3.6-5.0)
[2020-06-24 10:35] LABS: CARBON DIOXIDE 31 mmol/L (22-30); CHLORIDE 102 mmol/L (98-107)
[2020-06-24 10:37] LABS: ANION GAP 6 (5-19)
== END ==
LOC: CCC 09:03
PROVIDERS: ATTEND Family Medicine
DX: R60.0 Localized edema (principal); E11.8 Type 2 diabetes mellitus with unspecified complications
CPT/HCPCS: 36415; 80048; 81001; 82040; 84155

== ENCOUNTER → 2020-07-05 | Outpatient (CLI) | payer OTHER | LOC: OD 10:13 | PROVIDERS: ATTEND Surgery | DX: Z85.038 Personal history of other malignant neoplasm of large intestine (principal) | CPT/HCPCS: 36415; 82378 ==